=== PATIENT | male | born 1955 | race African-American/Black ===

== ENCOUNTER 2016-05-18 18:55 | Emergency (ER) | payer BC, OTHER ==
--- NOTE | 2016-05-18 20:09 | XR ---
EXAMINATION TYPE: XR chest 2V DATE OF EXAM: 05/18/2016 8:05 PM COMPARISON: NONE HISTORY: Chest pain TECHNIQUE: Frontal and lateral views of the chest are obtained. FINDINGS: Heart and mediastinum are normal. Lungs are clear. Costophrenic angles are clear. There ar e no hilar masses. Bony thorax appears intact. IMPRESSION: No active cardiopulmonary disease.
[2016-05-18] MEDS ORDERED: ONDANSETRON 4 MG/2 ML VIAL IVP STA (20:53)
[2016-05-18] MEDS ORDERED: SODIUM CHLORIDE 0.9% 1,000 ML IV ONE (20:53)
[2016-05-18] MEDS ORDERED: KETOROLAC 30 MG/ML 1 ML VIAL IVP STA (20:53)
--- NOTE | 2016-05-18 20:54 | ED ---
General Adult HPI - General Chief complaint: Upper Respiratory Infection Stated complaint: congestion, diff breathing Time Seen by Provider: 05/18/16 19:42 Source: patient Mode of arrival: ambulatory Limitations: no limitations - History of Present Illness Initial comments: 60-year-old -[place] male presented for evaluation of 4 days of fevers, chills, sinus congestion, cough. He states that he has sick contacts intermittently. Symptom onset was gradual but acutely worsened over the last 48 hours. He has not tried any medications for improvement of his symptoms. He further states that there was associated nausea and vomiting and he is therefore been unable to keep any other medications down. He states coughing brings on chest discomfort but there is none at baseline. Cough is productive of discolored sputum. - Related Data Home Medications Medication Instructions Recorded Confirmed Albuterol Sulfate [Proair Hfa] 2 puff INHALATION RT-Q6H PRN 05/18/16 05/18/16 Clindamycin [Cleocin] 150 mg PO Q8H 05/18/16 05/18/16 Ibuprofen [Motrin] 800 mg PO TID PRN 05/18/16 05/18/16 amLODIPine [Norvasc] 2.5 mg PO DAILY 05/18/16 05/18/16 Previous Rx's Medication Instructions Recorded Ondansetron Odt [Zofran Odt] 4 mg PO Q8HR PRN #7 tab 05/18/16 Allergies Allergy/AdvReac Type Severity Reaction Status Date / Time Penicillins Allergy Rash/Hives Verified 05/18/16 19:36 Review of Systems ROS Statement: Those systems with pertinent positive or pertinent negative responses have been documented in the HPI. ROS Other: All systems not noted in ROS Statement are negative. Constitutional: Reports: fever, chills. Denies: weakness, weight change, night sweats Eyes: Denies: eye pain, eye discharge ENT: Reports: throat pain. Denies: ear pain, hearing loss, epistaxis Respiratory: Reports: cough, dyspnea, wheezes. Denies: hemoptysis, stridor Cardiovascular: Reports: chest pain (With coughing), dyspnea on exertion. Denies: palpitations, orthopnea Endocrine: Reports: fatigue. Denies: polydipsia, polyuria Gastrointestinal: Reports: nausea, vomiting, diarrhea. Denies: abdominal pain, constipation Genitourinary: Denies: urgency, dysuria Musculoskeletal: Reports: myalgia. Denies: back pain Skin: Denies: rash, lesions Neurological: Reports: headache. Denies: weakness Psychiatric: Denies: anxiety, depression Past Medical History Past Medical History: Hypertension History of Any Multi-Drug Resistant Organisms: None Reported Past Surgical History: Orthopedic Surgery Past Psychological History: No Psychological Hx Reported Smoking Status: Current every day smoker Past Alcohol Use History: None Reported Past Drug Use History: Marijuana General Exam Limitations: no limitations General appearance: alert, in no apparent distress Head exam: Present: atraumatic, normocephalic, normal inspection Eye exam: Present: normal appearance, PERRL, EOMI. Absent: scleral icterus, conjunctival injection, periorbital swelling ENT exam: Present: normal exam, mucous membranes moist Neck exam: Present: normal inspection. Absent: tenderness, meningismus, lymphadenopathy Respiratory exam: Present: normal lung sounds bilaterally. Absent: respiratory distress, wheezes, rales, rhonchi, stridor Cardiovascular Exam: Present: regular rate, normal rhythm, normal heart sounds. Absent: systolic murmur, diastolic murmur, rubs, gallop, clicks GI/Abdominal exam: Present: soft, normal bowel sounds. Absent: distended, tenderness, guarding, rebound, rigid Rectal exam: Present: deferred Extremities exam: Present: normal inspection, full ROM, normal capillary refill. Absent: tenderness, pedal edema, joint swelling, calf tenderness Back exam: Present: normal inspection Neurological exam: Present: alert, oriented X3, CN II-XII intact Psychiatric exam: Present: normal affect, normal mood Skin exam: Present: warm, dry, intact, normal color. Absent: rash Course Vital Signs 05/18/16 19:25 Temperature 99 F Pulse Rate 94 Respiratory 20 Rate Blood Pressure 165/93 O2 Sat by Pulse 92 L Oximetry EKG Findings - EKG Comments: EKG Findings:: Normal sinus rhythm with a ventricular rate of 86, JARED 118, QRS 82, QT/QTC 372/445. Medical Decision Making - Medical Decision Making 60-year-old -[place] male presenting for evaluation of sore throat, productive cough, shortness of breath, and headache for the last few days. He has sick contacts and there is concern for URI versus pneumonia. On physical examination he has clear lung sounds bilaterally but appears generally fatigued. Labs are significant for a positive influenza. There was an elevation in his alk phos but there were no other LFTs elevated and he had no abdominal tenderness on this visit therefore will not be further worked up. He was informed of this is ultimately he should follow-up on it with his primary care physician. Otherwise there are no other significant laboratory abnormalities. Chest x-ray revealed no acute abnormalities. The patient was reevaluated and had marked improvement in his symptoms. He is informed of these results and through shared decision making it was determined that he would be discharged with instructions to follow-up with his primary care physician but to return to this facility if symptoms should worsen or persist. He acknowledged an understanding of this information and agreed with this plan of care. - Lab Data Result diagrams: 05/18/16 21:15 05/18/16 21:15 Lab Results 05/18/16 05/18/16 05/18/16 Range/Units 19:50 19:50 21:15 WBC 6.3 (3.8-10.6) k/uL RBC 4.73 (4.30-5.90) m/uL Hgb 13.6 (13.0-17.5) gm/dL Hct 41.3 (39.0-53.0) % MCV 87.3 (80.0-100.0) fL MCH 28.8 (25.0-35.0) pg MCHC 33.0 (31.0-37.0) g/dL RDW 15.2 (11.5-15.5) % Plt Count 374 (150-450) k/uL Neutrophils % 73 % Lymphocytes % 12 % Monocytes % 10 % Eosinophils % 2 % Basophils % 1 % Neutrophils # 4.6 (1.3-7.7) k/uL Lymphocytes # 0.7 L (1.0-4.8) k/uL Monocytes # 0.6 (0-1.0) k/uL Eosinophils # 0.1 (0-0.7) k/uL Basophils # 0.1 (0-0.2) k/uL Sodium (137-145) mmol/L Potassium (3.5-5.1) mmol/L Chloride (98-107) mmol/L Carbon Dioxide (22-30) mmol/L Anion Gap mmol/L BUN (9-20) mg/dL Creatinine (0.66-1.25) mg/dL Est GFR (MDRD) Af Amer (>60 ml/min/1.73 sqM) Est GFR (MDRD) Non-Af (>60 ml/min/1.73 sqM) Glucose (74-99) mg/dL Calcium (8.4-10.2) mg/dL Total Bilirubin (0.2-1.3) mg/dL AST (17-59) U/L ALT (21-72) U/L Alkaline Phosphatase (38-126) U/L Troponin I (0.000-0.034) ng/mL Total Protein (6.3-8.2) g/dL Albumin (3.5-5.0) g/dL Lipase (23-300) U/L Influenza Type A RNA Detected H (Not Detectd) Influenza Type B (PCR) Not Detected (Not Detectd) Group A Strep Rapid Negative (Negative) 05/18/16 05/18/16 Range/Units 21:15 21:15 WBC (3.8-10.6) k/uL RBC (4.30-5.90) m/uL Hgb (13.0-17.5) gm/dL Hct (39.0-53.0) % MCV (80.0-100.0) fL MCH (25.0-35.0) pg MCHC (31.0-37.0) g/dL RDW (11.5-15.5) % Plt Count (150-450) k/uL Neutrophils % % Lymphocytes % % Monocytes % % Eosinophils % % Basophils % % Neutrophils # (1.3-7.7) k/uL Lymphocytes # (1.0-4.8) k/uL Monocytes # (0-1.0) k/uL Eosinophils # (0-0.7) k/uL Basophils # (0-0.2) k/uL Sodium 138 (137-145) mmol/L Potassium 4.7 (3.5-5.1) mmol/L Chloride 102 (98-107) mmol/L Carbon Dioxide 27 (22-30) mmol/L Anion Gap 9 mmol/L BUN 22 H (9-20) mg/dL Creatinine 0.90 (0.66-1.25) mg/dL Est GFR (MDRD) Af Amer >60 (>60 ml/min/1.73 sqM) Est GFR (MDRD) Non-Af >60 (>60 ml/min/1.73 sqM) Glucose 100 H (74-99) mg/dL Calcium 9.1 (8.4-10.2) mg/dL Total Bilirubin 0.6 (0.2-1.3) mg/dL AST 53 (17-59) U/L ALT 55 (21-72) U/L Alkaline Phosphatase 200 H (38-126) U/L Troponin I <0.012 (0.000-0.034) ng/mL Total Protein 7.0 (6.3-8.2) g/dL Albumin 3.6 (3.5-5.0) g/dL Lipase 75 (23-300) U/L Influenza Type A RNA (Not Detectd) Influenza Type B (PCR) (Not Detectd) Group A Strep Rapid (Negative) Disposition Clinical Impression: Influenza A Disposition: HOME SELF-CARE Condition: Stable Instructions: Upper Respiratory Infection (ED) Additional Instructions: Please use medication as discussed. Please follow up with family doctor if symptoms have not improved over the next two days. Please return to the emergency room if your symptoms increase or worsen or for any other concerns. Prescriptions: Ondansetron Odt [Zofran Odt] 4 mg PO Q8HR PRN #7 tab PRN Reason: Nausea Referrals: Pearl Sosa MD [Primary Care Provider] - 1-2 days Time of Disposition: 22:27
[2016-05-18 21:31] LABS: Basophils # (A) 0.1 k/uL (0-0.2); Basophils % (A) 1 %; CH 28.8; CHCM 33.2; Eosinophils # (A) 0.1 k/uL (0-0.7); Eosinophils % (A) 2 %; HCT 41.3 % (39.0-53.0); HDW 2.83; HGB 13.6 gm/dL (13.0-17.5); Luc # (Auto) 0.16; Luc % (Auto) 3; Lymphocytes # (A) 0.7 k/uL (1.0-4.8); Lymphocytes % (A) 12 %; MCH 28.8 pg (25.0-35.0); MCV 87.3 fL (80.0-100.0); Mean Platelet Volume 7.1; Monocytes # (A) 0.6 k/uL (0-1.0); Monocytes % (A) 10 %; Neutrophils # (A) 4.6 k/uL (1.3-7.7); Neutrophils % (A) 73 %; RBC 4.73 m/uL (4.30-5.90); RDW 15.2 % (11.5-15.5); WBC 6.3 k/uL (3.8-10.6); WBC (Perox) 6.74
[2016-05-18 21:44] LABS: ALT 55 U/L (21-72); AST 53 U/L (17-59); Alkaline Phosphatase 200 U/L (38-126); Anion Gap 9 mmol/L; Blood Urea Nitrogen 22 mg/dL (9-20); Calcium 9.1 mg/dL (8.4-10.2); Carbon Dioxide 27 mmol/L (22-30); Chloride 102 mmol/L (98-107); Glucose 100 mg/dL (74-99); Non-African American GFR(MDRD) >60 (>60 ml/min/1.73 sqM); Potassium 4.7 mmol/L (3.5-5.1); Sodium 138 mmol/L (137-145); Total Bilirubin 0.6 mg/dL (0.2-1.3)
[2016-05-18 23:03] VITALS: BP 146/91; PULSE 85; RESP 16; TEMP 97.9
== END 2016-05-18 23:03 | disposition home or self-care (01) ==
LOC: EC 18:55
DX: J10.1 Influenza due to other identified influenza virus with other respiratory manifestations (principal); R74.8 Abnormal levels of other serum enzymes; R11.2 Nausea with vomiting, unspecified; I10 Essential (primary) hypertension; F17.200 Nicotine dependence, unspecified, uncomplicated; Z79.899 Other long term (current) drug therapy; Z88.0 Allergy status to penicillin
CPT/HCPCS: 99284 ×2; 96374 ×2; 96375 ×2; 96361 ×3; 36415; 93005; 80053; 83690; 84484; 85025; 87081; 87430; 87502; 71020; J2405; J1885

== ENCOUNTER → 2016-06-17 | Outpatient (CLI) | payer BC, OTHER ==
--- NOTE | 2016-06-18 07:55 | CT ---
EXAMINATION TYPE: CT facial bones wo con DATE OF EXAM: 06/17/2016 7:29 PM COMPARISON: NONE HISTORY: Left sided swelling marked by BB CT DLP: 641.[address] of the facial bones was performed in the axial and coronal planes. Bone and soft tissu e window settings are submitted. Markers placed over the site of clinical concern left jaw region. There appears to be mild edema of the posterior left masseter muscle however given the lack of contra st examination is considered limited. I do recommend CT of the neck with contrast further evaluation. In addition there appears to be internal jugular chain adenopathy bilaterally. I do not see evidence for displaced facial bone fracture or depressed facial bone fracture. The globes are intact. Paranasal sinuses are well-aerated. IMPRESSION: 1. There appears to be mild edema of the posterior left masseter muscle however given the lack of co ntrast examination is considered limited. I do recommend CT of the neck with contrast further evaluat ion. In addition there appears to be internal jugular chain adenopathy bilaterally.
== END | disposition home or self-care (01) ==
LOC: RADCTMAIN 18:59
PROVIDERS: ATTEND Internal Medicine
DX: R22.0 Localized swelling, mass and lump, head (principal); M27.8 Other specified diseases of jaws
CPT/HCPCS: 70486

== ENCOUNTER → 2016-06-26 | Outpatient (CLI) | payer BC, OTHER ==
--- NOTE | 2016-06-26 15:39 | CT ---
EXAMINATION TYPE: CT soft tissue neck w con DATE OF EXAM: 06/26/2016 2:51 PM COMPARISON: CT facial bones 17 June 2016 HISTORY: left side mass CT DLP: 513 mGycm Automated exposure control for dose reduction was used. CONTRAST: CT scan of the neck is performed following with IV Contrast, patient injected with 100 mL of Omnipaqu e 300. Axial images are obtained, coronal and sagittal reformatted images are reviewed. FINDINGS: Airway: No gross abnormality seen. Parotid/submandibular glands: No gross abnormality seen. Carotid/Vascular Structures: Patent, no significant stenosis of the proximal internal carotid arterie s. Internal jugular veins are patent. Vertebral arteries are patent, left vertebral artery is dominan t. Other: Some heterogeneous density is present within the posterior pharyngeal soft tissues which appea rs somewhat prominently. Focal area of low attenuation is present measuring approximately 7 mm, there could be a Thornwaldt cyst present. Bilateral adenopathy present deep to the sternocleidomastoid muscles and parotid glands, left-sided n ode measures approximately 17 mm in short axis, right-sided no is 11 mm in short axis. Calcifications along the palatine tonsil left likely due to chronic infection. Emphysematous changes are present at the lung apices. Sclerotic density is present involving the proximalmost right second rib, there is an apparent fractu re present without significant displacement, sclerotic density also present within the T3 vertebral b liliya and spinous process T2. IMPRESSION: Findings suggest bony metastatic disease as well as cervical adenopathy. Consider bone s can, oncology consult, additional findings above. Possibility of fat within the neck may limit sensit ivity. A Yellow message has been communicated to Pearl Sosa MD via the [employer] system on 06/26/2016 3:35 PM, Message ID [id number].
== END | disposition home or self-care (01) ==
LOC: RADCTMAIN 13:54
PROVIDERS: ATTEND Internal Medicine
DX: R22.1 Localized swelling, mass and lump, neck (principal)
CPT/HCPCS: 70491; Q9967

== ENCOUNTER 2016-07-06 16:36 | Inpatient (IN) | payer BC, OTHER ==
[2016-07-06] MEDS ORDERED: SODIUM CHLORIDE 0.9% 1,000 ML IV STA (16:55)
[2016-07-06] MEDS ORDERED: IPRATROPIUM-ALBUTEROL 3 ML NEB INHALATION STA (16:55)
--- NOTE | 2016-07-06 17:01 | ED ---
Chest Pain HPI - General Chief Complaint: Chest Pain Stated Complaint: Chest Pain Time Seen by Provider: 07/06/16 16:42 Source: patient, family, RN notes reviewed, old records reviewed Mode of arrival: ambulatory Limitations: no limitations - History of Present Illness Initial Comments: This is a 60-year-old male with a history of about one week of left-sided sharp chest pain. He was intermittent gets worse with the breathing he's also had night sweats. He has occasional cough but no phlegm production. States the pain is mild to moderate in severity. Additionally he states he recently had a CAT scan because he has 2 lumps on his face below his ears he is to see Dr. nani quinteros in the near future. He denies any history of heart or lung disease but again he is a smoker. He also states she's had decreased appetite. He does also complain some upper abdominal pain he had no diarrhea but he did have an episode nausea vomiting earlier today. MD Complaint: chest pain, other - Related Data Home Medications Medication Instructions Recorded Confirmed Albuterol Sulfate [Proair Hfa] 2 puff INHALATION RT-Q6H PRN 05/18/16 07/06/16 Ibuprofen [Motrin] 800 mg PO TID PRN 05/18/16 07/06/16 amLODIPine [Norvasc] 2.5 mg PO DAILY 05/18/16 07/06/16 HYDROcodone/APAP 5-325MG [Kin[place] 1 tab PO TID PRN 07/06/16 07/06/16 5-325] Allergies Allergy/AdvReac Type Severity Reaction Status Date / Time Penicillins Allergy Rash/Hives Verified 07/06/16 17:27 Review of Systems ROS Statement: Those systems with pertinent positive or pertinent negative responses have been documented in the HPI. ROS Other: All systems not noted in ROS Statement are negative. EKG Findings - EKG Results: EKG: interpreted by JONATHON, sinus rhythm (Sinus rhythm with a rate of 90 NJ interval of 128 QRS duration 82 daily since QTC of 372/455 possible left atrial enlargement nonspecific ST-T wave configuration. This is compared to an EKG dated 05/18/16 shows no acute changes.) Past Medical History Past Medical History: Hypertension History of Any Multi-Drug Resistant Organisms: None Reported Past Surgical History: Orthopedic Surgery Past Psychological History: No Psychological Hx Reported Smoking Status: Current every day smoker Past Alcohol Use History: None Reported Past Drug Use History: Marijuana General Exam - General Exam Comments Initial Comments: This is a well-developed asthenic appearing male he does appear to be dyspneic he does not have audible wheezing. Limitations: no limitations General appearance: alert, anxious, in distress Head exam: Present: atraumatic, normocephalic, normal inspection Eye exam: Present: normal appearance, PERRL, EOMI. Absent: scleral icterus, conjunctival injection, periorbital swelling ENT exam: Present: mucous membranes dry, other (Some evidence of preauricular lymphadenopathy) Neck exam: Present: normal inspection. Absent: tenderness, meningismus, lymphadenopathy Respiratory exam: Present: wheezes, chest wall tenderness, decreased breath sounds. Absent: respiratory distress, rales, rhonchi, stridor Cardiovascular Exam: Present: regular rate, normal rhythm, normal heart sounds. Absent: systolic murmur, diastolic murmur, rubs, gallop, clicks GI/Abdominal exam: Present: soft, tenderness (Some mild right upper quadrant tenderness palpation no guarding or rebound), normal bowel sounds. Absent: distended, guarding, rebound, rigid Extremities exam: Present: normal inspection, full ROM, normal capillary refill. Absent: tenderness, pedal edema, joint swelling, calf tenderness Back exam: Present: normal inspection Neurological exam: Present: alert, oriented X3, CN II-XII intact Psychiatric exam: Present: normal affect, normal mood Skin exam: Present: warm, dry, intact, normal color. Absent: rash Course Vital Signs 07/06/16 07/06/16 07/06/16 16:38 16:57 17:11 Temperature 98.0 F Pulse Rate 96 88 88 Respiratory 20 16 Rate Blood Pressure 179/112 213/110 O2 Sat by Pulse 96 100 Oximetry 07/06/16 07/06/16 07/06/16 17:19 17:52 18:26 Temperature Pulse Rate 92 95 98 Respiratory 16 Rate Blood Pressure 191/109 186/104 O2 Sat by Pulse 98 Oximetry 07/06/16 18:56 Temperature Pulse Rate 108 H Respiratory Rate Blood Pressure 206/103 O2 Sat by Pulse Oximetry - Reevaluation(s) Reevaluation #1: 07/06/16 19:22 The patient was getting some relief with his breathing initial medication for chest pain did help the repeat did Chest Pain MDM - MDM I did review the imaging and report. There is evidence of osteoblastic changes Lisfranc consistent with metastatic disease evidence of right upper lobe spiculated 2 cm mass. No evidence of PE. The patient will be admitted for continued inpatient treatment of the suspected COPD pulmonary consultation as well as Dr. Simpson will be consulted. Disposition Clinical Impression: Atypical chest pain, Lung mass, COPD with exacerbation Disposition: ADMITTED IP TO THIS HOSP Condition: Stable
[2016-07-06 17:09] LABS: Basophils # (A) 0.1 k/uL (0-0.2); Basophils % (A) 1 %; CH 28.4; CHCM 32.7; Eosinophils # (A) 1.4 k/uL (0-0.7); Eosinophils % (A) 7 %; HCT 40.5 % (39.0-53.0); HDW 3.01; Luc % (Auto) 1; Lymphocytes # (A) 1.7 k/uL (1.0-4.8); Lymphocytes % (A) 9 %; MCH 28.2 pg (25.0-35.0); MCHC 32.2 g/dL (31.0-37.0); MCV 87.5 fL (80.0-100.0); Mean Platelet Volume 6.3; Monocytes # (A) 1.1 k/uL (0-1.0); Monocytes % (A) 6 %; Neutrophils % (A) 76 %; RBC 4.63 m/uL (4.30-5.90); RDW 15.2 % (11.5-15.5); WBC 18.4 k/uL (3.8-10.6); WBC (Perox) 16.87
[2016-07-06 17:20] LABS: ALT 75 U/L (21-72); AST 49 U/L (17-59); Alkaline Phosphatase 312 U/L (38-126); Anion Gap 8 mmol/L; Blood Urea Nitrogen 16 mg/dL (9-20); Calcium 9.6 mg/dL (8.4-10.2); Carbon Dioxide 31 mmol/L (22-30); Chloride 102 mmol/L (98-107); Glucose 74 mg/dL (74-99); Magnesium 1.9 mg/dL (1.6-2.3); Non-African American GFR(MDRD) >60 (>60 ml/min/1.73 sqM); Potassium 4.3 mmol/L (3.5-5.1); Sodium 141 mmol/L (137-145); Total Bilirubin 0.6 mg/dL (0.2-1.3); Total Protein 7.7 g/dL (6.3-8.2)
[2016-07-06] MEDS ORDERED: ONDANSETRON 4 MG/2 ML VIAL IVP STA (17:22)
[2016-07-06 17:26] LABS: INR 1.1 (<1.1); Partial Thromboplastin Time 25.3 sec (22.0-30.0); Prothrombin Time 10.9 sec (9.0-12.0)
--- NOTE | 2016-07-06 17:27 | XR ---
EXAMINATION TYPE: XR chest 2V DATE OF EXAM: 07/06/2016 5:10 PM COMPARISON: 05/18/2016 HISTORY: Chest pain TECHNIQUE: Frontal and lateral views of the chest are obtained. FINDINGS: Heart and mediastinum are normal. Lungs are clear of consolidation. Diaphragm is normal. T here are chest leads. There is a small irregular 1 cm density over the right upper lobe. IMPRESSION: Possible right upper lobe nodule. No change compared to last exam..
[2016-07-06 17:33] LABS: Creatine Kinase 33 U/L (55-170)
[2016-07-06] MEDS ORDERED: HYDROmorphone 1 MG/ML 1 ML SYRINGE IVP STA (17:43)
[2016-07-06 17:47] LABS: Creatine Kinase MB 0.7 ng/mL (0.0-2.4); Troponin I <0.012 ng/mL (0.000-0.034)
[2016-07-06] MEDS ORDERED: RX INFO: IV CONTRAST WAS GIVEN 1 EACH MISC MISCELLANE PRN (17:49)
--- NOTE | 2016-07-06 18:43 | CT ---
EXAMINATION TYPE: CT angio chest DATE OF EXAM: 07/06/2016 6:31 PM COMPARISON: NONE HISTORY: Chest pain and SOB. CT DLP: 410 mGycm Automated exposure control for dose reduction was used. CONTRAST: CTA scan of the thorax is performed with IV Contrast, patient injected with 90 mL of Omnipaque 350, p ulmonary embolism protocol. There are 3-D post processed images.. FINDINGS: There is no sign of aortic aneurysm or dissection. Heart size is normal. There is no pericardial effu sonny. There are enlarged mediastinal and right bronchial lymph nodes that measure up to 2.5 cm. I see no filling defects in the pulmonary arteries. There is a 2 cm spiculated infiltrate in the anterior segment right upper lobe. There is no pleural effusion. There are numerous variable sized ring-enhancing type masses in the liver. These measure up to 7 cm. There are patchy areas of osteoblastic change in multiple thoracic and lumbar vertebra. IMPRESSION: NO EVIDENCE OF PULMONARY EMBOLISM. MEDIASTINAL AND RIGHT BRONCHIAL ADENOPATHY. RIGHT UPPER LOBE SPICULATED 2 CM MASS IS SUSPICIOUS FOR T UMOR. NUMEROUS HEPATIC LESIONS CONSISTENT WITH METASTATIC DISEASE. OSTEOBLASTIC CHANGES IN THE SPINE CONSISTENT WITH METASTATIC DISEASE.
[2016-07-06] MEDS ORDERED: IBUPROFEN 800 MG TAB PO PRN (19:30)
[2016-07-06] MEDS ORDERED: SODIUM CHLORIDE 0.9% 1,000 ML IV SCH (19:30)
[2016-07-06] MEDS ORDERED: IPRATROPIUM-ALBUTEROL 3 ML NEB INHALATION SCH (20:00)
[2016-07-06] MEDS ORDERED: amLODIPine 2.5 MG TAB PO STA (21:20)
[2016-07-06] MEDS ORDERED: ONDANSETRON 4 MG/2 ML VIAL IVP PRN (21:21)
[2016-07-06] MEDS ORDERED: DOCUSATE 100 MG CAP PO PRN (21:22)
[2016-07-06] MEDS: HYDROmorphone 1 MG/ML 1 ML SYRINGE IVP PRN (21:30)
[2016-07-06] MEDS ORDERED: IPRATROPIUM-ALBUTEROL 3 ML NEB INHALATION PRN (21:54)
[2016-07-06] MEDS: METOCLOPRAMIDE 5 MG/ML 2 ML VIAL IVP PRN (22:49)
[2016-07-06] MEDS ORDERED: ALPRAZolam 0.25 MG TAB PO PRN (23:34)
[2016-07-06] MEDS ORDERED: cloNIDine HCL 0.1 MG TAB PO PRN (23:34)
[2016-07-06] MEDS ORDERED: TEMAZEPAM 15 MG CAP PO PRN (23:34)
[2016-07-06 23:55] VITALS: BMI 17.4
[2016-07-07] MEDS ORDERED: METOCLOPRAMIDE 5 MG/ML 2 ML VIAL IVP SCH
[2016-07-07] MEDS ORDERED: methylPREDNISolone SOD SUCCI 125 MG/2 ML VIAL IV SCH
[2016-07-07] MEDS: hydrALAZINE HCL 20 MG/ML 1 ML VIAL IVP PRN ×2 (00:15→22:27)
[2016-07-07] MEDS: METOPROLOL TARTRATE 25 MG TAB PO SCH ×3 (00:19→20:26)
[2016-07-07] MEDS: amLODIPine 5 MG TAB PO SCH ×3 (00:19→20:26)
[2016-07-07] MEDS: NICOTINE 14MG/24HR PATCH TRANSDERM SCH ×2 (00:20→10:37)
[2016-07-07] MEDS: DEXTROSE 5% IN WATER 1,000 ML with POTASSIUM CHLORIDE 20 MEQ IV SCH ×2 (00:54→22:26)
[2016-07-07] MEDS: PANTOPRAZOLE 40 MG/10 ML VIAL IVP SCH ×3 (01:36→21:34)
[2016-07-07] MEDS: ONDANSETRON 4 MG/2 ML VIAL IVP PRN ×2 (01:36→22:26)
[2016-07-07] MEDS: METOCLOPRAMIDE 5 MG/ML 2 ML VIAL IVP PRN (04:10)
[2016-07-07] MEDS: HYDROmorphone 1 MG/ML 1 ML SYRINGE IVP PRN ×3 (04:10→19:54)
[2016-07-07 07:01] LABS: Glucose,Whole Blood 83 mg/dL (75-99)
[2016-07-07] MEDS: INSULIN LISPRO (humaLOG) 300 UNIT/3 ML VIAL SQ SCH ×4 (07:31→20:31)
[2016-07-07] MEDS: methylPREDNISolone SOD SUCCI 125 MG/2 ML VIAL IV SCH ×2 (07:33→20:27)
[2016-07-07] MEDS: HEPARIN SODIUM,PORCINE 5,000 UNIT/ML 1 ML VIAL SQ SCH ×2 (07:33→20:26)
[2016-07-07] MEDS: IPRATROPIUM-ALBUTEROL 3 ML NEB INHALATION SCH ×4 (08:19→20:18)
[2016-07-07 08:47] LABS: Basophils # (A) 0.1 k/uL (0-0.2); Basophils % (A) 1 %; CH 28.1; CHCM 31.1; Eosinophils # (A) 0.7 k/uL (0-0.7); Eosinophils % (A) 4 %; HCT 40.2 % (39.0-53.0); HGB 12.5 gm/dL (13.0-17.5); Hypochromasia Slight; Luc # (Auto) 0.17; Luc % (Auto) 1; Lymphocytes # (A) 1.5 k/uL (1.0-4.8); Lymphocytes % (A) 9 %; MCH 28.3 pg (25.0-35.0); MCHC 31.1 g/dL (31.0-37.0); Mean Platelet Volume 6.9; Monocytes # (A) 1.2 k/uL (0-1.0); Monocytes % (A) 7 %; Neutrophils # (A) 13.1 k/uL (1.3-7.7); Neutrophils % (A) 78 %; RBC 4.42 m/uL (4.30-5.90); RDW 15.4 % (11.5-15.5); WBC 16.8 k/uL (3.8-10.6); WBC (Perox) 18.28
[2016-07-07 08:58] LABS: ALT 71 U/L (21-72); AST 43 U/L (17-59); Alkaline Phosphatase 300 U/L (38-126); Anion Gap 12 mmol/L; Blood Urea Nitrogen 15 mg/dL (9-20); Calcium 9.7 mg/dL (8.4-10.2); Carbon Dioxide 27 mmol/L (22-30); Chloride 101 mmol/L (98-107); Glucose 80 mg/dL (74-99); Non-African American GFR(MDRD) >60 (>60 ml/min/1.73 sqM); Potassium 5.2 mmol/L (3.5-5.1); Sodium 140 mmol/L (137-145); Total Bilirubin 0.8 mg/dL (0.2-1.3); Total Protein 7.7 g/dL (6.3-8.2)
[2016-07-07] MEDS ORDERED: amLODIPine 2.5 MG TAB PO SCH (09:00)
[2016-07-07] MEDS ORDERED: IOHEXOL 350 MG/ML 25 ML BOTTLE (ORAL USE) PO PRN (09:31)
[2016-07-07] MEDS ORDERED: RX INFO: IV CONTRAST WAS GIVEN 1 EACH MISC MISCELLANE PRN ×2 (09:31→10:15)
[2016-07-07 11:40] LABS: Glucose,Whole Blood 99 mg/dL (75-99)
[2016-07-07 13:37] LABS: Hemoglobin A1C 5.2 % (4.2-6.1)
--- NOTE | 2016-07-07 14:32 | NM ---
EXAMINATION TYPE: NM bone scan whole body DATE OF EXAM: 07/07/2016 1:54 PM COMPARISON: Correlation CT 07/07/2016 HISTORY: 60-year-old male bone metastases, area of concern in the thoracic and lumbar region. Technique: Delayed whole-body scanning was performed following the injection of 26.7 mCi Tc 99m MDP. Anterior and posterior whole body images acquired 3.5 hours post injection. FINDINGS: There is diffuse abnormal radiotracer accumulation throughout the axial and appendicular skeleton inv olving a greatest degree the thoracic and lumbar spine, sacrum, pelvis, numerous bilateral ribs, ster num, shoulders, proximal left humeral shaft, left femoral neck, intertrochanteric region right femur. Foci along the face may relate to periodontal disease or additional metastatic disease. A vague focu s in the mid right tibial shaft could also represent subtle osseous metastatic disease. 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 Foci in the region of t he face may relate to periodontal disease or additional metastatic disease.
--- NOTE | 2016-07-07 14:38 | US ---
Ultrasound-guided core biopsy left neck mass CLINICAL HISTORY: Left neck lymphadenopathy FINDINGS: The procedure was explained to the patient. The risks, complications, benefits and alternatives were discussed and any questions were answered. Informed consent was obtained. Patient was placed and a lateral position on the ultrasound table and prepped and draped in the usual sterile fashion. Utili zing a 18 gauge needle, 4 passes were made into the left neck mass. Patient was stable throughout the procedure. Pathology is pending. All elements of maximal barrier and sterile technique were utilized. IMPRESSION: 1. Successful ultrasound guided core biopsy left neck soft tissue mass.
--- NOTE | 2016-07-07 15:23 | HP ---
DATE OF ADMISSION: CHIEF COMPLAINT: Chest pain. HISTORY OF PRESENT ILLNESS: This 60-year-old gentleman with a past medical history of multiple medical problems, hypertension, history of nicotine dependence, history of THC being followed by Dr. Sosa the outpatient setting is complaining of left-sided chest sharp pains for the last one week. The pain is intermittently worse on breathing. The patient also had some night sweats also. The patient also has some cough. The patient also had some pain in the right side of the chest also. The patient also had two bumps below the left ear and was evaluated in the outpatient setting. A CAT scan has been done. The patient had evaluation with Dr. Simpson but has not made the appointment yet. Otherwise currently because of chest pain, the patient presented to [facility] and chest x-ray was done and subsequently a CT scan of the chest was also done that showed mediastinal and right bronchial adenopathy and right upper lobe spiculated 2 cm mass suspicious tumor and numerous hepatic lesions. Concern for metastatic disease also. spine consistent with metastatic disease also noted. Is. There is no history of fever, rigors. No history of headache, loss of consciousness or seizures. The blood pressure was found significantly elevated on admission. The patient also had some vomiting also. PAST MEDICAL HISTORY: History of hypertension, history of smoking, history of marijuana. HOME MEDICATIONS: 1. Norvasc 2.5 mg daily. 2. Motrin 800 mg t.i.d. p.r.n. 3. [place] t.i.d. p.r.n. 4. ProAir 2 puffs q.6. ALLERGIES: PENICILLIN. FAMILY HISTORY: No history of heart disease or strokes in the family. SOCIAL HISTORY: History of smoking, no history of alcohol intake, history of THC. REVIEW OF SYSTEMS: ENT: No diminished hearing or diminished vision. CARDIOVASCULAR: No angina or palpitations. RESPIRATORY: No cough or hemoptysis. GI: No nausea. : No dysuria. NERVOUS SYSTEM: No numbness or weakness. ALLERGY/IMMUNOLOGY: No asthma or hayfever. MUSCULOSKELETAL: As mentioned earlier. HEMATOLOGY: No history of anemia. ENDOCRINE: No history of diabetes or hypothyroidism. CONSTITUTIONAL: As mentioned earlier. DERMATOLOGY: Negative. RHEUMATOLOGY: Negative. PSYCHIATRY: As mentioned earlier. PHYSICAL EXAMINATION: Patient is alert and oriented x3. Pulse 88, blood pressure 190/110 and 212/114, respirations 16, temperature 97.8, pulse ox 98% on 2-L. HEENT: Conjunctivae normal. Oral mucosa moist. Facial flattening on the left side of the face. Significant hard swelling present below the left ear and as well as left posterior cervical areas. 0 NECK: No jugular venous distention. CARDIOVASCULAR: S1 and S2, muffled. No S3, no S4. RESPIRATORY: Breath sounds diminished at the bases. Bilateral scattered rhonchi and crackles. ABDOMEN: Soft, nontender. No mass palpable. LEGS: No edema, no swelling. NERVOUS SYSTEM: Higher function as mentioned. Moves all four limbs. No focal motor deficits. LYMPHATIC: No lymphadenopathy in the neck, axillae or groin. SKIN: No ulcer, rash or bleeding. BMI is 17.5. LABS: WBC 18.4, platelets are 513, CO2 is 31 and ALT 75, alkaline phosphatase is 312 and creatine kinase is 333. ASSESSMENT: 1. Possible metastatic malignancy with mediastinum and right bronchial adenopathy with possible right lung cancer. 2. Cervical lymphadenopathy and mass below the left ear for further evaluation. 3. Possible hepatic metastases. 4. ( ) changes in the spine consistent metastatic disease. 5. Hypertensive urgency. 6. Increased ALT, alkaline phosphatase, possible secondary to hepatic metastases. 7. Increased d-dimer without any evidence of pulmonary embolism. 8. Increased WBC. 9. Increased platelets. 10. History of nicotine dependence. 11. Hypertension, essential. 12. History of THC. 13. History of degenerative joint disease. RECOMMENDATIONS AND DISCUSSION: In this 60-year-old gentleman who presented medical complex issues, we will monitor the patient closely. Continue the current medications and symptomatic treatment. I recommended p.r.n. medications and also institute antihypertensive treatment. Otherwise recommend Norvasc and as well as beta blockers. Symptomatic treatment will also be provided. See orders for further details. Prognosis is guarded because of multiple complex medical issues. Further recommendations to follow. MTDD
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
--- NOTE | 2016-07-07 16:51 | CT ---
EXAMINATION TYPE: CT brain w con DATE OF EXAM: 07/07/2016 1:45 PM COMPARISON: NONE HISTORY: Headache CT DLP: 999.8 mGycm Automated exposure control for dose reduction was used. CONTRAST: CT scan of the head is performed with IV Contrast, patient injected with 100 mL of Omnipaque 300. FINDINGS: There is no abnormal enhancing mass or midline shift identified. The ventricles and sulci are within normal limits in size. Areas of low-attenuation and periventricular white matter are nonspecific fav or product of chronic small vessel ischemic change. Old infarct right frontal lobe seen best coronal image 20 is noted. The globes are intact and the visualized sinuses are clear. IMPRESSION: Mild nonspecific white matter changes presumed on basis of product of chronic small vessel ischemic c hange with old right-sided frontal lobe infarct noted. No suspicious enhancing intraparenchymal mass identified.
[2016-07-07 16:53] LABS: Glucose,Whole Blood 174 mg/dL (75-99)
--- NOTE | 2016-07-07 17:00 | CT ---
EXAMINATION TYPE: CT abdomen pelvis w con DATE OF EXAM: 07/07/2016 1:45 PM COMPARISON: Same day nuclear medicine whole body bone scan HISTORY: Liver and lung masses, history of carcinoma uncertain origin. CT DLP: 369.2 mGycm, Automated Exposure Control for Dose Reduction was Utilized. CONTRAST: CT scan of the abdomen and pelvis is performed without oral but with IV Contrast, patient injected wi th 100 mL of Omnipaque 300. FINDINGS: Evaluation is suboptimal as patient has virtually no intra-abdominal fat LUNG BASES: Some linear scarring or atelectasis posteriorly in both lung bases is present. LIVER/GB: There are multiple heterogeneous hypodense lesions scattered throughout the liver, difficul t to accurately measure size due to some confluent appearance. PANCREAS: No significant abnormality is seen. SPLEEN: No significant abnormality is seen. ADRENALS: There are bilateral heterogeneous suspicious adrenal masses. Left adrenal mass measures 6.4 x 4.2 cm on axial image 27. Right adrenal mass measures 4.2 x 3.7 cm on axial image [address] margins from adjacent liver. A fatty component along posterior inferior aspect may be present. KIDNEYS: Bladder is poorly distended and thus suboptimally evaluated. BOWEL: Evaluation bowel is suboptimal due to lack of intra-abdominal fat as well as lack of enteric c ontrast. Gas prominent stomach is seen. There is no suspicious small or large bowel dilatation. Gas p rominent rectum on axial image 79 is noted. PROSTATE/SEMINAL VESICLES: Occasional scattered pelvic phleboliths are seen. LYMPH NODES: No greater than 1cm abdominal or pelvic lymph nodes are appreciated. OSSEOUS STRUCTURES: There are multiple sclerotic lesions throughout the pelvis, visualized bilateral femurs, visualized thoracic and lumbar spine and visualized bilateral ribs. There is enhancing oval lesion posterior to L5 vertebra on sagittal image 51 and axial image 51 of un certain etiology, appears extra medullary and likely extradural in location. MRI lumbar spine October 05, 2009 shows no obvious lesion at this level. OTHER: No significant additional abnormality is seen. IMPRESSION: Diffuse hepatic and osseous metastatic disease and bilateral adrenal neoplasm or metastat ic disease.
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
[2016-07-07 20:42] LABS: Glucose,Whole Blood 126 mg/dL (75-99)
[2016-07-08 07:30] LABS: Glucose,Whole Blood 109 mg/dL (75-99)
[2016-07-08] MEDS: INSULIN LISPRO (humaLOG) 300 UNIT/3 ML VIAL SQ SCH ×4 (07:39→22:02)
[2016-07-08] MEDS: PANTOPRAZOLE 40 MG/10 ML VIAL IVP SCH ×2 (07:41→20:39)
[2016-07-08] MEDS: HEPARIN SODIUM,PORCINE 5,000 UNIT/ML 1 ML VIAL SQ SCH ×2 (07:41→20:38)
[2016-07-08] MEDS: methylPREDNISolone SOD SUCCI 125 MG/2 ML VIAL IV SCH ×2 (07:41→20:38)
[2016-07-08] MEDS: NICOTINE 14MG/24HR PATCH TRANSDERM SCH (07:42)
[2016-07-08] MEDS: METOPROLOL TARTRATE 25 MG TAB PO SCH ×2 (07:42→20:39)
[2016-07-08] MEDS: amLODIPine 5 MG TAB PO SCH ×2 (07:42→20:38)
--- NOTE | 2016-07-08 08:28 | PN ---
DATE OF SERVICE: 07/07/2016 This is a 60-year-old gentleman admitted with metastatic malignancy, also had multiple symptomatology include chest pain. The bone scan showed diffuse osteoblastic secondary throughout the skeletal system. The patient also had possible multiple metastases in the liver also. Cervical lymphadenopathy was also noted. Patient underwent ultrasound-guided lymph node aspiration biopsy per Radiology. There is no history of fever, chills or rigors. No history of headaches, loss of consciousness or seizures. PAST MEDICAL HISTORY: Reviewed. REVIEW OF SYSTEMS: CARDIOVASCULAR SYSTEM: No angina or palpitations. RESPIRATORY: As mentioned earlier. GI: No nausea. : No dysuria. NERVOUS SYSTEM: No numbness or weakness. Current medications are: 1. [place] 5 mg t.i.d. p.r.n. 2. DuoNeb q.i.d. and p.r.n. 3. Xanax 0.25 t.i.d. 4. Norvasc 5 mg p.o. b.i.d. 5. Colace 100 mg p.o. daily. 6. Heparin 5000 subQ b.i.d. 7. Apresoline 10 mg q.4 p.r.n. 8. Dilaudid. 9. Humalog. 10. Solu-Medrol 40 IV b.i.d. 11. Habitrol 14 mg. 12. Zofran. 13. Temazepam. FAMILY HISTORY: Noncontributory. PHYSICAL EXAM: The patient is alert and oriented x3. Pulse 90, blood pressure 160/90, respirations 16, temperature is normal, pulse ox is 95% on room air. HEENT: Conjunctivae normal. Oral mucosa moist. Neck is no jugular venous distension. No lymph node enlargement. CARDIOVASCULAR: S1, S2, muffled. RESPIRATORY: Breath sounds diminished at the bases. A few scattered rhonchi, no crackles. Respiratory wheezing also was noted. ABDOMEN: Soft, nontender. No mass palpable. LEGS: No edema, no swelling. NERVOUS SYSTEM: No focal deficits. Labs at this time show WBC 16.8, hemoglobin is 12.5, potassium 5.2. Other labs are noted. Alk phos is 300. ASSESSMENT: 1. Possible metastatic malignancy with metastasis in the mediastinum, right bronchial adenopathy and as well as possible right lung cancer. 2. Diffuse osteoblastic metastatic lesion in the skeletal system with a positive bone scan. 3. Cervical lymphadenopathy and mass below the left ear for further evaluation. 4. Possible hepatic metastasis. 5. Hypertensive urgency, present on admission. 6. Increased ALT, alkaline phosphatase, possibly secondary to hepatic metastasis. 7. Increased D-dimer without any evidence of pulmonary embolism. 8. Increased WBC. 9. Increased platelets. 10. History of nicotine dependence. 11. Hypertension, essential. 12. History of THC. 13. History of degenerative joint disease. RECOMMENDATION: Recommend to continue with the current medication. Continue with the current monitoring and the symptomatic treatment. Otherwise, will monitor the patient closely. Otherwise, I would recommend continue the current medication, continue the symptomatic treatment. Await biopsy report. Dr. Simpson is evaluating the patient, his input appreciated. Otherwise, we have also consulted Dr. Betts and Dr. Edwards's group as well. Prognosis guarded. Further recommendations to follow.
[2016-07-08 09:01] LABS: Basophils % (A) 0 %; CH 28.3; CHCM 32.2; Eosinophils # (A) 0.2 k/uL (0-0.7); Eosinophils % (A) 1 %; HCT 40.7 % (39.0-53.0); HDW 2.99; Luc # (Auto) 0.14; Luc % (Auto) 1; Lymphocytes # (A) 1.1 k/uL (1.0-4.8); Lymphocytes % (A) 5 %; MCH 28.3 pg (25.0-35.0); MCHC 31.9 g/dL (31.0-37.0); MCV 88.6 fL (80.0-100.0); Mean Platelet Volume 6.5; Monocytes # (A) 1.5 k/uL (0-1.0); Monocytes % (A) 8 %; Neutrophils # (A) 17.5 k/uL (1.3-7.7); Neutrophils % (A) 86 %; RDW 15.1 % (11.5-15.5); WBC 20.4 k/uL (3.8-10.6); WBC (Perox) 19.58
[2016-07-08 09:20] LABS: ALT 56 U/L (21-72); AST 31 U/L (17-59); Alkaline Phosphatase 303 U/L (38-126); Anion Gap 16 mmol/L; Blood Urea Nitrogen 21 mg/dL (9-20); Calcium 10.4 mg/dL (8.4-10.2); Carbon Dioxide 25 mmol/L (22-30); Chloride 97 mmol/L (98-107); Glucose 102 mg/dL (74-99); Non-African American GFR(MDRD) >60 (>60 ml/min/1.73 sqM); Potassium 5.2 mmol/L (3.5-5.1); Sodium 138 mmol/L (137-145); Total Bilirubin 0.7 mg/dL (0.2-1.3); Total Protein 8.3 g/dL (6.3-8.2)
[2016-07-08] MEDS: IPRATROPIUM-ALBUTEROL 3 ML NEB INHALATION SCH ×4 (09:23→21:16)
--- NOTE | 2016-07-08 11:03 | P.PN ---
Subjective 60-year-old male patient is being seen in follow-up. The patient is doing well and he has no specific complaints. Underwent a fine-needle aspirate of the left cervical lymph node/lesion yesterday and the final pathologic findings are still pending. He has no specific complaints other than some pain in his back and some occasional nausea. No shortness of breath. No change in mental status. No other significant events overnight.The CAT scan of the abdomen and pelvis was done and showed diffuse hepatic and HIS metastases and bilateral adrenal neoplasm consistent with metastatic disease. The nuclear bone scan showed diffuse O2 bled take metastatic disease involving the spine, ribs, sternum, sacrum, pelvis, shoulders, bilateral humerus and femur as and possibly another focus in the mid right tibial shaft. Objective - Vital Signs Vital signs: Vital Signs Temp 97.7 F 07/08/16 07:51 Pulse 86 07/08/16 09:35 Resp 16 07/08/16 09:23 BP 180/95 07/08/16 07:51 Pulse Ox 94 L 07/08/16 07:51 Intake & Output 07/07/16 07/08/16 07/08/16 18:59 06:59 18:59 Intake Total 350 250 Output Total 350 Balance 350 -100 Weight 55.338 kg Intake: Intake, IV Titration 350 Amount Dextrose 5% in Water 1, 350 000 ml @ 50 mls/hr IV . [id number] SONNY with Potassium Chloride 20 meq Rx#:[id number] Oral 250 Output: Urine 350 Other: Voiding Method Toilet Toilet Toilet Urinal Urinal Urinal # Voids 2 1 - Exam The patient appeared well nourished and normally developed. Vital signs as documented. Head exam is unremarkable. No scleral icterus or corneal arcus noted. Neck is without jugular venous distension, thyromegaly, or carotid bruits. Carotid upstrokes are brisk bilaterally. Lungs are clear to auscultation and percussion. Cardiac exam reveals the PMI to be normally sized and situated. Rhythm is regular. First and second heart sounds normal. No murmurs, rubs or gallops. Abdominal exam reveals normal bowel sounds, no masses , no organomegaly and no aortic enlargement. Extremities are nonedematous and both femoral and pedal pulses are normal. - Labs CBC & Chem 7: 07/08/16 08:17 07/08/16 08:17 Labs: Abnormal Lab Results - Last 24 Hours (Table) 07/07/16 07/07/16 07/08/16 Range/Units 16:49 20:28 07:04 WBC (3.8-10.6) k/uL Plt Count (150-450) k/uL Neutrophils # (1.3-7.7) k/uL Monocytes # (0-1.0) k/uL Potassium (3.5-5.1) mmol/L Chloride (98-107) mmol/L BUN (9-20) mg/dL Glucose (74-99) mg/dL POC Glucose (mg/dL) 174 H 126 H 109 H (75-99) mg/dL Calcium (8.4-10.2) mg/dL Alkaline Phosphatase (38-126) U/L Total Protein (6.3-8.2) g/dL 07/08/16 07/08/16 Range/Units 08:17 08:17 WBC 20.4 H (3.8-10.6) k/uL Plt Count 534 H (150-450) k/uL Neutrophils # 17.5 H (1.3-7.7) k/uL Monocytes # 1.5 H (0-1.0) k/uL Potassium 5.2 H (3.5-5.1) mmol/L Chloride 97 L (98-107) mmol/L BUN 21 H (9-20) mg/dL Glucose 102 H (74-99) mg/dL POC Glucose (mg/dL) (75-99) mg/dL Calcium 10.4 H (8.4-10.2) mg/dL Alkaline Phosphatase 303 H (38-126) U/L Total Protein 8.3 H (6.3-8.2) g/dL Assessment and Plan Plan: Assessment 1 metastatic carcinoma likely of a lung primary. The patient has a right upper lobe mass in addition to mediastinal lymphadenopathy, cervical lymphadenopathy and extensive hepatic metastases and diffuse skeletal metastases. Fine-needle aspirate of the neck mass was done and the results are still pending for now. This is likely cervical lymphadenopathy consistent with malignancy 2 COPD 3 skeletal metastases 4 smoker 5 hypertension 6 osteoarthritis Plan Awaiting final pathology report from the fine-needle aspirate of the cervical mass. Oncology consultation. Prognosis poor. We'll follow.
[2016-07-08 11:22] LABS: Glucose,Whole Blood 178 mg/dL (75-99)
--- NOTE | 2016-07-08 16:05 | CDI ---
In responding to this query, please exercise your independent professional judgment. The [facility] Coding Staff and Clinical Documentation Specialists appreciate your assistance in clarifying documentation, maintaining compliance with coding guidelines, accurately documenting patients condition and capturing severity of illness. The fact that a question is asked does not imply that any particular answer is desired or expected. Communication forms are a method of clarifying documentation and are not made part of the Legal Health Record. Thank you in advance for your clarification. Last Revision, December 2014 [address] [place] [address] Documentation Clarification Form Date: 07/08/2016 3:48:00 PM From: Neeru Chase RN, CDS Admit Date: 07/06/2016 7:30:00 PM Patient Name: Gavin Rice Visit Number: [id number] Dr. Nissa Beach MD History/Risk Factors: 60 year old male with recent diagnosis of Lung cancer, patient reports > 20 lb. weight loss, does not know why he is losing weight. Clinical Indicators: 25 Lb. weight loss over 6 months, BMI 17.4, Underweight per dietitian, Labs: Albumin/ Pre albumin/Total Protein: Albumin: 3.7, Total Protein 7.7 Insufficient energy intake: Weight Loss: 25 pounds over 6 months Treatment: Dietitian consult, Ensure supplement BID, In your professional opinion, can you please clarify if these findings signify one of the following conditions? Severe Protein-Calorie Malnutrition Moderate Protein-Calorie Malnutrition Other condition, please specify Unable to determine Please document in your progress notes and discharge summary in order to capture severity of illness and risk of mortality. Include clinical findings that support your diagnosis. FYI: Press F11 to launch patient chart. Place X here if this finding has no clinical significance, is not applicable or if you are not able to provide any additional documentation. SHRADDHA
[2016-07-08 17:02] LABS: Glucose,Whole Blood 142 mg/dL (75-99)
[2016-07-08] MEDS: DEXTROSE 5% IN WATER 1,000 ML with POTASSIUM CHLORIDE 20 MEQ IV SCH (17:34)
--- NOTE | 2016-07-08 17:38 | PN ---
DATE OF SERVICE: 07/08/2016 This 60-year-old gentleman was admitted with multiple medical problems, including metastatic malignancy. Patient had multiple metastatic lesions in the lymph nodes in the lung and cervical lymphadenopathy as well as throughout the skeletal system. The lymph node biopsy reports are pending at this time. Dr. Betts and Dr. Simpson are following the patient closely. Fine-needle aspiration biopsy is awaited. On examination, alert and oriented x3. Pulse is 90. The blood pressure is 180/95, respiration 16, temperature 97.6, pulse ox 94% on room air. HEENT: Conjunctivae normal. NECK: No jugular venous distention. CARDIOVASCULAR SYSTEM: S1, S2 muffled. RESPIRATORY SYSTEM: Breath sounds diminished at the bases. A few scattered rhonchi. ABDOMEN: Soft, non-tender. LEGS: No edema. No swelling. NERVOUS SYSTEM: No focal deficit. LABS: WBC 20.4, hemoglobin 13, platelets 534. Otherwise, sodium is 138, potassium 5.2. Accu-Cheks 178. ASSESSMENT: 1. Metastatic malignancy with metastases in the mediastinum, right bronchial adenopathy as well as possible right lung cancer. 2. Diffuse osteoblastic metastatic lesions in the skeletal system with a positive bone scan. 3. Cervical lymphadenopathy and mass below the left ear, status post fine-needle aspiration biopsy of the lymph node. 4. Possible hepatic metastasis. 5. Hypertensive urgency, present on admission. 6. Increased ALT, alkaline phosphatase, possibly secondary to hepatic metastasis. 7. Increased D-dimer without any evidence of pulmonary embolism. 8. Increased white count. 9. Increased platelets. 10. History of nicotine dependence. 11. Hypertension, essential. 12. History of tetrahydrocannabinol. 13. History of degenerative joint disease. 14. FULL CODE. RECOMMENDATIONS AND DISCUSSION: In this 60-year-old gentleman who presented with multiple complex medical issues, we will monitor the patient closely, continue the current medication, continue with symptomatic treatment. Repeat labs. Follow closely with Dr. Betts and Dr. Simpson. Prognosis guarded. Further recommendations to follow. Await lymph node fine-needle aspiration biopsy reports.
[2016-07-08] MEDS ORDERED: D5W WITH KCL 20 MEQ/L 1,000 ML IV SCH (21:00)
[2016-07-08 21:09] LABS: Glucose,Whole Blood 149 mg/dL (75-99)
[2016-07-09] MEDS: ONDANSETRON 4 MG/2 ML VIAL IVP PRN ×2 (05:42→17:26)
[2016-07-09] MEDS: HYDROcodone/APAP 5-325MG 1 EACH TAB PO PRN ×2 (05:42→17:28)
[2016-07-09 07:07] LABS: Glucose,Whole Blood 97 mg/dL (75-99)
--- NOTE | 2016-07-09 07:07 | PN ---
ADDENDUM: FINAL DIAGNOSIS: Severe protein calorie malnutrition.
[2016-07-09] MEDS: INSULIN LISPRO (humaLOG) 300 UNIT/3 ML VIAL SQ SCH ×3 (07:22→17:31)
[2016-07-09 07:40] VITALS: RESP 16; TEMP 97.6
[2016-07-09] MEDS: IPRATROPIUM-ALBUTEROL 3 ML NEB INHALATION SCH ×3 (08:42→16:12)
[2016-07-09] MEDS: amLODIPine 5 MG TAB PO SCH (09:09)
[2016-07-09] MEDS: PANTOPRAZOLE 40 MG TABLET PO SCH ×2 (09:09→17:30)
[2016-07-09] MEDS: methylPREDNISolone SOD SUCCI 125 MG/2 ML VIAL IV SCH (09:09)
[2016-07-09] MEDS: HEPARIN SODIUM,PORCINE 5,000 UNIT/ML 1 ML VIAL SQ SCH (09:09)
[2016-07-09] MEDS: NICOTINE 14MG/24HR PATCH TRANSDERM SCH (09:09)
[2016-07-09] MEDS: METOPROLOL TARTRATE 25 MG TAB PO SCH (09:09)
[2016-07-09 09:25] LABS: Basophils # (A) 0.1 k/uL (0-0.2); Basophils % (A) 0 %; CH 28.1; CHCM 31.6; Eosinophils # (A) 0.2 k/uL (0-0.7); Eosinophils % (A) 1 %; HCT 40.7 % (39.0-53.0); HDW 2.71; Luc # (Auto) 0.18; Luc % (Auto) 1; Lymphocytes # (A) 1.1 k/uL (1.0-4.8); Lymphocytes % (A) 4 %; MCH 28.5 pg (25.0-35.0); MCHC 31.9 g/dL (31.0-37.0); MCV 89.5 fL (80.0-100.0); Mean Platelet Volume 7.1; Monocytes # (A) 1.8 k/uL (0-1.0); Monocytes % (A) 7 %; Neutrophils % (A) 87 %; RBC 4.55 m/uL (4.30-5.90); WBC (Perox) 27.18
[2016-07-09 10:00] LABS: WBC 26.4 k/uL (3.8-10.6)
[2016-07-09 10:08] LABS: ALT 59 U/L (21-72); AST 38 U/L (17-59); Alkaline Phosphatase 278 U/L (38-126); Anion Gap 14 mmol/L; Blood Urea Nitrogen 29 mg/dL (9-20); Calcium 9.8 mg/dL (8.4-10.2); Carbon Dioxide 24 mmol/L (22-30); Chloride 97 mmol/L (98-107); Glucose 79 mg/dL (74-99); Non-African American GFR(MDRD) >60 (>60 ml/min/1.73 sqM); Potassium 5.6 mmol/L (3.5-5.1); Sodium 135 mmol/L (137-145); Total Bilirubin 0.7 mg/dL (0.2-1.3); Total Protein 8.1 g/dL (6.3-8.2)
[2016-07-09 11:37] LABS: Glucose,Whole Blood 117 mg/dL (75-99)
[2016-07-09 15:24] VITALS: BP 135/91; PULSE 89
[2016-07-09] MEDS ORDERED: SODIUM POLYSTYRENE SULFONATE 15 GM/60 ML BOTTLE PO STA ×2 (17:05→17:10)
[2016-07-09 17:29] LABS: Glucose,Whole Blood 106 mg/dL (75-99)
--- NOTE | 2016-07-09 17:49 | P.PN ---
Subjective 60-year-old male patient is being seen in follow-up. The patient is doing well and he has no specific complaints. Underwent a fine-needle aspirate of the left cervical lymph node/lesion yesterday and the final pathologic findings are still pending. He has no specific complaints other than some pain in his back and some occasional nausea. No shortness of breath. No change in mental status. No other significant events overnight.The CAT scan of the abdomen and pelvis was done and showed diffuse hepatic and HIS metastases and bilateral adrenal neoplasm consistent with metastatic disease. The nuclear bone scan showed diffuse O2 bled take metastatic disease involving the spine, ribs, sternum, sacrum, pelvis, shoulders, bilateral humerus and femur as and possibly another focus in the mid right tibial shaft. The patient is seen again today 07/09/2016 in follow-up. He is awake and alert in no acute distress. He is maintaining good O2 saturations in the 90s on room air. He is anxious to go home. The left neck mass biopsy was positive for metastatic adenocarcinoma consistent with lung primary. Oncology is following. Objective - Vital Signs Vital signs: Vital Signs Temp 97.6 F 07/09/16 15:23 Pulse 89 07/09/16 16:00 Resp 16 07/09/16 16:00 BP 135/91 07/09/16 15:23 Pulse Ox 98 07/09/16 15:23 Intake & Output 07/08/16 07/09/16 07/09/16 18:59 06:59 18:59 Intake Total 350 400 720 Balance 350 400 720 Intake: Intake, IV Titration 350 Amount D5w with KCl 20 Meq/l 1, 350 000 ml @ 50 mls/hr IV . Q20H [facility] Rx#:[id number] Oral 400 720 Other: Voiding Method Toilet Toilet Toilet Urinal Urinal Urinal # Voids 1 3 - Exam The patient appeared well nourished and normally developed. Vital signs as documented. Head exam is unremarkable. No scleral icterus or corneal arcus noted. Neck is without jugular venous distension, thyromegaly, or carotid bruits. Carotid upstrokes are brisk bilaterally. Lungs are clear to auscultation and percussion. Cardiac exam reveals the PMI to be normally sized and situated. Rhythm is regular. First and second heart sounds normal. No murmurs, rubs or gallops. Abdominal exam reveals normal bowel sounds, no masses , no organomegaly and no aortic enlargement. Extremities are nonedematous and both femoral and pedal pulses are normal. - Labs CBC & Chem 7: 07/09/16 08:11 07/09/16 08:11 Labs: Abnormal Lab Results - Last 24 Hours (Table) 07/08/16 07/09/16 07/09/16 Range/Units 20:55 08:11 08:11 WBC 26.4 H* (3.8-10.6) k/uL Plt Count 478 H (150-450) k/uL Neutrophils # 23.0 H (1.3-7.7) k/uL Monocytes # 1.8 H (0-1.0) k/uL Sodium 135 L (137-145) mmol/L Potassium 5.6 H (3.5-5.1) mmol/L Chloride 97 L (98-107) mmol/L BUN 29 H (9-20) mg/dL POC Glucose (mg/dL) 149 H (75-99) mg/dL Alkaline Phosphatase 278 H (38-126) U/L 07/09/16 07/09/16 Range/Units 11:35 17:27 WBC (3.8-10.6) k/uL Plt Count (150-450) k/uL Neutrophils # (1.3-7.7) k/uL Monocytes # (0-1.0) k/uL Sodium (137-145) mmol/L Potassium (3.5-5.1) mmol/L Chloride (98-107) mmol/L BUN (9-20) mg/dL POC Glucose (mg/dL) 117 H 106 H (75-99) mg/dL Alkaline Phosphatase (38-126) U/L Assessment and Plan Plan: Assessment 1 metastatic carcinoma likely of a lung primary. The patient has a right upper lobe mass in addition to mediastinal lymphadenopathy, cervical lymphadenopathy and extensive hepatic metastases and diffuse skeletal metastases. Fine-needle aspirate of the neck mass was done and confirmed metastatic adenocarcinoma of lung primary. 2 COPD 3 skeletal metastases 4 smoker 5 hypertension 6 osteoarthritis Plan: The patient was seen and evaluated by Dr. Betts. He is currently stable from the pulmonary standpoint. Oncology is on the case and will guide his treatment plan from here. He could follow-up in our office in 1-2 weeks' time. He is however encouraged to call sooner with any pulmonary complaints.
--- NOTE | 2016-07-09 19:26 | P.DS ---
Providers Date of admission: 07/06/16 19:30 Expected date of discharge: 07/09/16 Attending physician: Iam Alcala Consults: 07/06/16 19:25 Consult Physician Routine Consulting Provider: Delbert Edwards Consult Reason/Comments: COPD and lung mass Do you want consulting provider notified?: Yes Consult Physician Routine Consulting Provider: Keith Simpson Consult Reason/Comments: Lung mass Do you want consulting provider notified?: Yes Primary care physician: Sheila Kang [facility] Course: Final Diagnoses: 1.Metastatic malignancy with metastasis and the mediastinum, right bronchial adenopathy, fine-needle aspiration of neck mass confirmed metastatic carcinoma - lung primary. 2. Diffuse osteoblastic metastatic lesions in the skeletal system with a positive bone scan 3. Cervical lymphadenopathy and mass below the left ear, status post fine- needle aspiration biopsy of the lymph node, pathology pending 4. Possible hepatic metastasis with elevated LFTs 5. Hypertensive urgency, present on admission 6. Elevated d-dimer, pulmonary embolism ruled out 7. Leukocytosis 8. Increased platelets 9. History of nicotine dependence 10. Essential hypertension 11. History of THC 12.Degenerative joint disease 13. Moderate protein calorie malnutrition, BMI 17.5 Hospital course: This is a 60-year-old gentleman admitted with multiple medical problems including metastatic malignancy with multiple metastatic lesions of the lymph nodes of the lung ,cervical lymphadenopathy as well as metastatic lesions throughout the skeletal system per CT. Positive bone scan. Status post fine-needle aspiration biopsy of the lymph node/Left neck mass positive for metastatic adenocarcinoma-lung primary. Evaluated by oncology and pulmonary. Patient eager for discharge .Cleared by consults for discharge. Patient to follow-up with oncology regarding treatment plan and to follow-up with pulmonary. Patient is being discharged home in a stable condition with guarded prognosis. The impression and plan of care has been dictated as directed. : I performed a H&P examination of this patient and discussed the same with the dictator. I agree with the dictator's note. Any additional findings/opinions/ etc. will be noted. Plan - Discharge Summary New Discharge Prescriptions: amLODIPine [Norvasc] 5 mg PO BID #60 tab Docusate [Colace] 100 mg PO DAILY PRN #30 cap PRN Reason: Constipation Metoprolol Tartrate [Lopressor] 25 mg PO BID #60 tab Nicotine 14Mg/24Hr Patch [Habitrol] 1 patch TRANSDERM DAILY #30 patch Pantoprazole [Protonix] 40 mg PO AC-BID #60 tab predniSONE 10 mg PO DIRECTED #9 tab traMADol HCL [Ultram] 50 mg PO Q6HR PRN #20 tab PRN Reason: Pain Discharge Medication List Albuterol Sulfate [Proair Hfa] 2 puff INHALATION RT-Q6H PRN 05/18/16 [History] Docusate [Colace] 100 mg PO DAILY PRN #30 cap 07/09/16 [Rx] Metoprolol Tartrate [Lopressor] 25 mg PO BID #60 tab 07/09/16 [Rx] Nicotine 14Mg/24Hr Patch [Habitrol] 1 patch TRANSDERM DAILY #30 patch 07/09/16 [ Rx] Pantoprazole [Protonix] 40 mg PO AC-BID #60 tab 07/09/16 [Rx] amLODIPine [Norvasc] 5 mg PO BID #60 tab 07/09/16 [Rx] predniSONE 10 mg PO DIRECTED #9 tab 07/09/16 [Rx] traMADol HCL [Ultram] 50 mg PO Q6HR PRN #20 tab 07/09/16 [Rx] Follow up Appointment(s)/Referral(s): Keith Simpson MD [STAFF PHYSICIAN] - 1 Week Pearl Sosa MD [Primary Care Provider] - 3 Days Jeimy Betts MD [STAFF PHYSICIAN] - 2 Weeks [facility] Visiting Nurse, [NON-STAFF] - 1 Week Ambulatory/Diagnostic Orders: Comprehensive Metabolic Panel [LAB.AMB] Time Frame: 3 Days, Location: Determined By Patient Activity/Diet/Wound Care/Special Instructions: Diet low potassium diet Pathology pending . Ensure supplements 3 times a day between meals and daily at bedtime snack Activity: Limited until follow up Discharge Disposition: HOME WITH HOME HEALTH SERVICES
== END 2016-07-09 19:12 | disposition home health service (06) | DRG 180 ==
LOC: EC 16:36 → 5ONC 19:30
PROVIDERS: ADMIT Internal Medicine; ATTEND Internal Medicine
PROC: 0JB43ZX Excision of Right Neck Subcutaneous Tissue and Fascia, Percutaneous Approach, Diagnostic (ICD-10-PCS; principal; 2016-07-07)
DX: C34.11 Malignant neoplasm of upper lobe, right bronchus or lung (principal); E43 Unspecified severe protein-calorie malnutrition; C77.0 Secondary and unspecified malignant neoplasm of lymph nodes of head, face and neck; C78.7 Secondary malignant neoplasm of liver and intrahepatic bile duct; C77.1 Secondary and unspecified malignant neoplasm of intrathoracic lymph nodes; C79.51 Secondary malignant neoplasm of bone; Z68.1 Body mass index [BMI] 19.9 or less, adult; I16.0 Hypertensive urgency; I10 Essential (primary) hypertension; M19.91 Primary osteoarthritis, unspecified site; F17.200 Nicotine dependence, unspecified, uncomplicated; F12.929 Cannabis use, unspecified with intoxication, unspecified; J44.9 Chronic obstructive pulmonary disease, unspecified; Z79.899 Other long term (current) drug therapy
CPT/HCPCS: 36415; 38505; 70460; 71020; 71275; 74177; 76942; 78306; 80053; 82550; 82553; 83036; 83735; 83880; 84153; 84484; 85025; 85379; 85610; 85730; 88305; 88341; 88342; 93005; 94640

== ENCOUNTER → 2016-10-28 | Outpatient (CLI) | payer OTHER ==
[2016-10-28 10:12] LABS: Blood Urea Nitrogen 13 mg/dL (9-20); Non-African American GFR(MDRD) >60 (>60 ml/min/1.73 sqM)
--- NOTE | 2016-10-28 12:20 | CT ---
EXAMINATION TYPE: CT ChestAbdPelvis w con DATE OF EXAM: 10/28/2016 INDICATION: Patient has no complaints at time of service. Follow up study for known lung ca with kane moreno. COMPARISON: 07/07/2016 CT DLP: 435.9 mGycm CONTRAST: Performed with Oral Contrast and with IV Contrast, patient injected with 100 mL of Omnipaque 300. TECHNIQUE: Axial images at 5 mm thick sections. Reconstructed images in the coronal plane. Delayed images through the kidneys. FINDINGS: CT CHEST: Portion of the thyroid visualized is normal. There is a 0.8 x 1.7 cm spiculated mass right upper lobe. Series 4 image 21. This is suspicious for n eoplasm. Some minimal pneumonitis changes in the periphery of the lingula. Series 4 image 30. Emphyse matous blebs and bulla are present. A 1.6 cm right peribronchial lymph node is evident which is enlarged. Small aortopulmonic window lymp h node is present. The ascending aorta diameter at the level of the main pulmonary artery is 3.6 cm. The main pulmonary artery diameter at the bifurcation is 2.[address] ABDOMEN: Liver: There is extensive hypodensity scattered to the left and right lobes of the liver with some pe ripheral enhancement suspicious for multiple metastatic lesions. The largest in the right mid lobe me asures 4 cm in diameter. These were present previously and are somewhat better defined on the current examination. Spleen: Normal Pancreas: Normal Adrenal glands: Right adrenal gland is enlarged measuring 5.2 x 3.0 cm. There is marked enlargement o f the left adrenal gland measuring 6.9 x 6.2 cm in size. Left adrenal gland is slightly larger than p rior. Right adrenal gland is essentially stable to diminished. Gallbladder: Decompressed Kidneys: No masses are evident. No hydronephrosis is present. No cysts are present. Delayed images were obtained through the kidneys, which remain unremarkable. There is a 0.3 cm calcification withou t obstruction in the mid left kidney medially. Aorta: Vascular calcification is within the aorta. Inferior vena cava: Normal. CT PELVIS: Loops of bowel within the abdomen and pelvis are normal. Loops of bowel distended with oral contr ast normal. Fecal debris is in the transverse colon. Fecal debris is at the level the rectum. Appendix: Normal as visualized. Urinary bladder: Normal. Genitourinary structures: Prostate is prominent contains a couple of calcifications. Osseous structures: A sclerotic metastasis in the medial right iliac wing is not excluded. There mult iple scattered sclerotic areas through the thoracic and lumbar spine. Some additional sclerotic areas are within the iliac wings. There may be a sclerotic metastasis within the distal intertrochanteric region right hip. Sacral metastasis is likely present. Sclerotic metastasis within the ribs may be pr esent. IMPRESSIONS: 1. Enlarging left adrenal gland. Right adrenal gland appears similar or slightly diminished. 2. Better defined multiple metastatic lesions within the liver may be treated metastasis. The largest measuring 4.0 cm is likely slightly diminished from 4.4 cm previous. 3. Suspicious spiculated mass right upper lobe. 4. Enlarged right peribronchial lymph node in right hilar lymph node 5. Multiple sclerotic metastases. 6. Nonobstructing medial left mid renal stone.
== END | disposition home or self-care (01) ==
LOC: RADCTMAIN 09:31
PROVIDERS: ATTEND Internal Medicine Hematology & Oncology
DX: C78.7 Secondary malignant neoplasm of liver and intrahepatic bile duct (principal); C79.51 Secondary malignant neoplasm of bone; C34.11 Malignant neoplasm of upper lobe, right bronchus or lung; N20.0 Calculus of kidney; R59.0 Localized enlarged lymph nodes; E27.8 Other specified disorders of adrenal gland; Z88.0 Allergy status to penicillin
CPT/HCPCS: 82565; 84520; 71260; 74177; 36415; Q9967

== ENCOUNTER → 2017-04-10 | Outpatient (CLI) | payer OTHER ==
[2017-04-10 16:02] LABS: Blood Urea Nitrogen 13 mg/dL (9-20)
--- NOTE | 2017-04-12 23:45 | CT ---
EXAMINATION TYPE: CT ChestAbdPelvis w con DATE OF EXAM: 04/10/2017 COMPARISON: 02/05/2017 and 10/28/2016 HISTORY: 61-year-old male FOLLOW UP FOR LUNG CANCER. Observation for suspected metastases. TECHNIQUE: Contiguous axial scanning of the chest, abdomen, and pelvis performed with IV Contrast, pa tient injected with 100 mL of Omnipaque 300. Delayed images through the kidneys were obtained. Starr l/sagittal reconstructions performed. CT DLP: 469.8 mGycm Automated exposure control for dose reduction was used. FINDINGS: CHEST: The heart is normal size without pericardial effusion. The aorta is ectatic at 3.6 cm. Conventional arch vessel branching anatomy with mild atherosclerotic arch calcifications. 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 Previous right tracheobronchial angle lymph node has decreased in size now measuring 8 mm as compared to 1.2 cm, previously. No thoracic lymphadenopathy seen by CT size criteria. Spiculated nodule right upper lobe measures 1.2 x 0.6 cm versus 1.2 x 0.7 cm on 02/05/2017 and 1.4 x 0.9 cm on 10/28/2016. There is background of mild to moderate centrilobular emphysema. Focal subpleural patch of groundglass in the left upper lobe axial image 24 is unchanged. ABDOMEN: Multiple hypodense liver lesions are redemonstrated, largest in the right hepatic lobe measures 3.8 c m, not significantly changed. One lesion in segment 3 seen slightly more confluent measuring 3.1 x 3. 4 cm versus 2.9 x 2.6 cm, previously. However, lesion in the anterior mid liver measures 1.8 cm versu s 2.6 cm, previously. Portal venous system is patent. Bilateral centrally necrotic adrenal masses are demonstrated, measuring up to 8.6 x 7.3 cm on the lef t versus 8.5 x 7.2 cm on 02/05/2017 and 8.4 x 7.2 cm on 02/05/2017. On the right, the mass measures 4 .5 x 2.9 cm versus 5.0 x 3.3 cm on 02/05/2017 and 5.0 x 3.2 cm on 02/05/2017. Possibility of intra-abdominal fat limits assessment for abdominal lymphadenopathy. No dilated small bowel, free fluid, or free air. Moderate stool burden. Right kidney, spleen, and pancreas show no gross abnormality. Subcentimeter hypodensity left kidney t oo small for accurate CT characterization, likely cyst. Tiny 4 mm nonobstructive calculus left mid po le. ABDOMEN: Bladder under distended. There seems to be a small amount of pelvic free fluid. This may relate to mi ld anasarca type changes. Difficult to assess for any pelvic lymphadenopathy due to lack of fat. Bones: Diffuse osteoblastic lesions within the proximal femurs, pelvis, sacrum, throughout the spine, ribs, and right scapula are unchanged. IMPRESSION: 1. SPICULATED NODULE RIGHT UPPER LOBE RELATIVELY STABLE TO MINIMALLY SMALLER (1.2 X 0.6 CM VERSUS 1.4 X 0.9 CM ON 10/28/2016). 2. RIGHT TRACHEOBRONCHIAL ANGLE LYMPH NODE DECREASED IN SIZE (NOW 8 MM VERSUS 1.2 CM, PREVIOUSLY). 3. NUMEROUS HEPATIC METASTASES. LARGEST MEASURES 3.8 CM AND IS STABLE. SOME OF THESE HAVE FLUCTUATED IN THE INTERVAL, FOR EXAMPLE, ONE LESION IN THE LEFT LOBE APPEARS MORE CONFLUENT NOW MEASURING 3.4 CM WHEREAS ANOTHER LESION IN THE MID LIVER IS SMALLER NOW MEASURING 1.8 CM CM VERSUS 2.6 CM, PREVIOUSLY . 4. BILATERAL PARTIALLY NECROTIC ADRENAL MASSES MEASURING UP TO 8.6 CM ON THE LEFT AND 4.5 CM ON THE R IGHT ARE RELATIVELY STABLE, MINIMALLY DECREASED IN SIZE ON THE RIGHT (5.0 CM, PREVIOUSLY). 5. DIFFUSE OSTEOBLASTIC METASTASES ARE UNCHANGED. 6. COPD, CACHEXIA, MILD ANASARCA-TYPE CHANGE, AND SMALL AMOUNT OF PELVIC FREE FLUID.
== END | disposition home or self-care (01) ==
LOC: RADCTMAIN 15:30
PROVIDERS: ATTEND Internal Medicine Hematology & Oncology
DX: C34.11 Malignant neoplasm of upper lobe, right bronchus or lung (principal); C78.7 Secondary malignant neoplasm of liver and intrahepatic bile duct; C79.51 Secondary malignant neoplasm of bone; E27.8 Other specified disorders of adrenal gland; J44.9 Chronic obstructive pulmonary disease, unspecified; R64 Cachexia; R60.1 Generalized edema; Z88.0 Allergy status to penicillin
CPT/HCPCS: 82565; 84520; 71260; 74177; 36415; Q9967

== ENCOUNTER 2017-06-06 14:11 | Emergency (ER) | payer OTHER ==
[2017-06-06] MEDS ORDERED: IOPAMIDOL-300 CONTRAST 30 ML VIAL (ORAL USE) PO PRN (15:16)
[2017-06-06] MEDS ORDERED: RX INFO: IV CONTRAST WAS GIVEN 1 EACH MISC MISCELLANE PRN (15:16)
[2017-06-06] MEDS ORDERED: SODIUM CHLORIDE 0.9% 500 ML IV ONE (15:17)
[2017-06-06] MEDS ORDERED: MORPHINE SULFATE 4MG/4ML SYRG IVP STA (15:17)
[2017-06-06] MEDS ORDERED: ONDANSETRON 4 MG/2 ML VIAL IVP STA (15:17)
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
[2017-06-06 16:00] LABS: Anion Gap 14 mmol/L; Blood Urea Nitrogen 14 mg/dL (9-20); Calcium 8.5 mg/dL (8.4-10.2); Carbon Dioxide 21 mmol/L (22-30); Chloride 105 mmol/L (98-107); Glucose 102 mg/dL (74-99); Potassium 4.6 mmol/L (3.5-5.1); Sodium 140 mmol/L (137-145)
[2017-06-06 16:15] LABS: Anisocytosis Moderate; HCT 30.8 % (39.0-53.0); HGB 9.1 gm/dL (13.0-17.5); Hypochromasia Marked; MCH 27.5 pg (25.0-35.0); MCHC 29.6 g/dL (31.0-37.0); MCV 92.9 fL (80.0-100.0); Macrocytosis Slight; Mean Platelet Volume 7.4; Platelet Count 398 k/uL (150-450); Poikilocytosis Slight; RBC 3.31 m/uL (4.30-5.90); RDW 20.4 % (11.5-15.5); WBC 17.8 k/uL (3.8-10.6)
[2017-06-06 16:30] VITALS: RESP 16
[2017-06-06] MEDS ORDERED: SODIUM CHLORIDE 0.9% 1,000 ML IV SCH (16:45)
[2017-06-06 16:51] LABS: Band Neutrophils % 23 %; Eosinophils # (M) 0.18 k/uL (0-0.7); Lymphocytes # (M) 0.71 k/uL (1.0-4.8); Metamyelocytes # (M) 0.18 k/uL (0); Metamyelocytes % 1 %; Monocytes # (M) 0.53 k/uL (0-1.0); Neutrophils % (M) 70 %; Nucleated Red Blood Cells 0 /100 WBC (0-0); Total Cells Counted 200
[2017-06-06 16:55] LABS: Anisocytosis (M) Present; Dohle Bodies Present; Pelger-Huet Neutrophils Present; Toxic Granulation Present; Toxic Vacuolation Present
[2017-06-06 17:36] LABS: Appearance,Urine Clear (Clear); Bilirubin,Urine Negative (Negative); Blood,Urine Negative (Negative); Color,Urine Yellow; Glucose,Urine (UA) Negative (Negative); Ketones,Urine Negative (Negative); Leukocyte Esterase,Urine Negative (Negative); Nitrite,Urine Negative (Negative); PH, Urine 6.5 (5.0-8.0); Protein,Urine Trace (Negative); Specific Gravity,Urine 1.014 (1.001-1.035)
--- NOTE | 2017-06-06 18:35 | CT ---
EXAMINATION TYPE: CT abdomen pelvis w con DATE OF EXAM: 06/06/2017 COMPARISON: Prior CT chest abdomen pelvis 04/10/2017 HISTORY: Generalized pain with nausea and vomiting CT DLP: 384.2 mGycm Automated exposure control for dose reduction was used. TECHNIQUE: Helical acquisition of images from the lung bases through the pelvis have been completed. CONTRAST: Performed with Oral Contrast and with IV Contrast, patient injected with 100 mL of Isovue 300. FINDINGS: LUNG BASES: Minimal dependent atelectatic changes, no pleural or pericardial effusion AORTA: No significant abnormality is appreciated. LIVER/GB: Multiple low attenuation foci are scattered within the liver similar to prior exam PANCREAS: No significant abnormality is seen. SPLEEN: No significant abnormality is seen. ADRENALS: Bilateral masses are again noted and are similar in appearance KIDNEYS: No significant abnormality is seen. REPRODUCTIVE ORGANS: Some scrotal hyperemia noted on the left. BOWEL: Contrast has not coursed distally within the small bowel.. FREE AIR: No Free Air visible. ASCITES: Some fluid present within the abdomen. There are changes of anasarca. PELVIC ADENOPATHY: None visualized. RETROPERITONEAL ADENOPATHY: No Retroperitoneal Adenopathy visible. URINARY BLADDER: No significant abnormality is seen. OSSEOUS STRUCTURES: Multiple areas of abnormal sclerosis throughout the skeleton. IMPRESSION: METASTATIC DISEASE SIMILAR TO PRIOR EXAM. Follow-up could be performed to assess for progress of cont rast within the bowel. Anasarca similar to prior exam.
--- NOTE | 2017-06-06 18:48 | XR ---
EXAMINATION TYPE: XR chest 2V DATE OF EXAM: 06/06/2017 COMPARISON: Prior chest x-ray 02/07/[address] 04/10/2017 HISTORY: Lung carcinoma, constipation and pain TECHNIQUE: Frontal and lateral views of the chest are obtained. FINDINGS: Cardiac mediastinal silhouette, pulmonary vascularity and sandro are stable. No evident airs pace disease, pneumothorax, or pleural effusion. Small spiculated density in the right upper lobe not significantly changed IMPRESSION: Similar findings. Right upper lobe density is small.
[2017-06-06 19:16] VITALS: BP 116/75; PULSE 89; TEMP 98.6
[2017-06-06] MEDS ORDERED: MAGNESIUM CITRATE 296 ML BOTTLE PO ONE (19:25)
== END 2017-06-06 19:48 | disposition home or self-care (01) ==
LOC: EC 14:11
DX: K59.00 Constipation, unspecified (principal); R10.84 Generalized abdominal pain; R11.2 Nausea with vomiting, unspecified; C34.90 Malignant neoplasm of unspecified part of unspecified bronchus or lung; F17.200 Nicotine dependence, unspecified, uncomplicated; Z79.1 Long term (current) use of non-steroidal anti-inflammatories (NSAID); Z79.899 Other long term (current) drug therapy; Z79.891 Long term (current) use of opiate analgesic; Z88.0 Allergy status to penicillin
CPT/HCPCS: 36415; 80048; 83605; 85025; 81003; 71046; 74177; 99284; 96374; 96375; 96361 ×4; J2405; Q9967; J2270

== ENCOUNTER → 2017-07-14 | Outpatient (CLI) | payer OTHER ==
[2017-07-14 12:03] LABS: Blood Urea Nitrogen 14 mg/dL (9-20)
--- NOTE | 2017-07-14 14:44 | CT ---
EXAMINATION TYPE: CT ChestAbdPelvis w con DATE OF EXAM: 07/14/2017 COMPARISON: 06/06/2017, 04/10/2017 HISTORY: 61 year-old male lung cancer; Metastatic disease to liver, Bone metastasis TECHNIQUE: Contiguous axial scanning of the chest, abdomen, and pelvis performed with IV Contrast, pa tient injected with 100 ml mL of Isovue 300. Delayed images through the kidneys were obtained. Starr l/sagittal reconstructions performed. CT DLP: 980 mGycm Automated exposure control for dose reduction was used. FINDINGS: Chest: Diffuse cachexia. Heart normal size without pericardial effusion. Upper descending thoracic aorta mildly aneurysmal at 3.3 cm. Conventional arch vessel branching anato my. No new thoracic lymphadenopathy. No enlarged thoracic lymph nodes identified. 1 cm spiculated right upper lobe nodule is stable to minimally smaller from 04/10/2017 (1.2 cm, previo usly). Mild to moderate centrilobular emphysema in the upper lungs. No consolidation or pleural effusion. ABDOMEN: Redemonstrated are multiple hepatic metastases In the central liver, a confluent mass measures 5.0 cm versus 5.1 cm, previously, not significantly c hanged. Peripheral right hepatic lobe lesion measures 2.0 cm versus 1.6 cm, previously. Anterior segm ent 4 left liver lobe lesion measures 2.2 cm versus 2.1 cm, previously. Portal venous system is patent. No biliary ductal dilatation. Gallbladder, right kidney, spleen, and pancreas show no gross abnormal body. 4 mm nonobstructive left renal calculus. There is some minimal cortical hypodensity medial upper pole left kidney of uncertain clinical significance. Redemonstrated large centrally necrotic adrenal masses measuring up to 8.6 cm on the left, unchanged, and 4.3 cm on the right, also unchanged. Suggestion of some underlying chip hepatic lymphadenopathy measuring up to 2.0 cm this may be slight ly larger measuring 1.5 cm, previously. Cachexia and lack of intra-abdominal fat limits assessment for lymphadenopathy. No dilated small bowel or free air. Moderate stool burden. Pelvis: Bladder is nondistended. Small amount of pelvic free fluid as seen previously. Interval improvement in the patient's anasarca. Bones: Diffuse osteoblastic lesions are redemonstrated without much interval change. IMPRESSION: 1. SPICULATED RIGHT UPPER LOBE NODULE STABLE TO MINIMALLY SMALLER (1 CM VERSUS 1.2 CM ON 04/10/2017). 2. NUMEROUS HEPATIC MASSES ARE LARGELY UNCHANGED ARE DIFFUSE OSTEOBLASTIC METASTASES. 3. BILATERAL CENTRALLY NECROTIC ADRENAL MASSES ARE UNCHANGED MEASURING UP TO 8.6 CM ON THE LEFT AND 4 .3 CM ON THE RIGHT. 4. SUGGESTION OF SOME UNDERLYING PORTAHEPATIC LYMPHADENOPATHY CURRENTLY MEASURING 2.0 CM VERSUS 1.5 C M, PREVIOUSLY. SLIGHT INTERVAL INCREASE IN SIZE. 5. COPD, CACHEXIA AND SMALL AMOUNT OF PELVIC FREE FLUID. IMPROVEMENT IN THE ANASARCA CHANGES.
== END | disposition home or self-care (01) ==
LOC: RADCTMAIN 11:05
PROVIDERS: ATTEND Internal Medicine Hematology & Oncology
DX: C34.11 Malignant neoplasm of upper lobe, right bronchus or lung (principal); C78.7 Secondary malignant neoplasm of liver and intrahepatic bile duct; C79.51 Secondary malignant neoplasm of bone; E27.8 Other specified disorders of adrenal gland; J44.9 Chronic obstructive pulmonary disease, unspecified; R64 Cachexia; Z88.0 Allergy status to penicillin
CPT/HCPCS: 82565; 84520; 71260; 74177; 36415; Q9967

== ENCOUNTER 2017-08-14 18:12 | Inpatient (IN) | payer OTHER ==
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
[2017-08-14] MEDS ORDERED: MORPHINE SULFATE 2 MG/ML SYRINGE IV STA (19:02)
[2017-08-14] MEDS ORDERED: SODIUM CHLORIDE 0.9% 1,000 ML IV STA (19:02)
[2017-08-14] MEDS ORDERED: ONDANSETRON 4 MG/2 ML VIAL IVP STA (19:02)
[2017-08-14 19:46] LABS: Anisocytosis Slight; Basophils % (A) 0 %; Eosinophils # (A) 0.6 k/uL (0-0.7); Eosinophils % (A) 6 %; HCT 40.9 % (39.0-53.0); HGB 12.3 gm/dL (13.0-17.5); Hypochromasia Marked; Lymphocytes # (A) 0.8 k/uL (1.0-4.8); Lymphocytes % (A) 8 %; MCH 26.6 pg (25.0-35.0); MCV 88.7 fL (80.0-100.0); Mean Platelet Volume 6.7; Monocytes # (A) 0.5 k/uL (0-1.0); Monocytes % (A) 6 %; Neutrophils # (A) 7.5 k/uL (1.3-7.7); Neutrophils % (A) 79 %; Platelet Count 511 k/uL (150-450); RBC 4.61 m/uL (4.30-5.90); RDW 18.3 % (11.5-15.5); WBC 9.5 k/uL (3.8-10.6)
[2017-08-14 19:59] LABS: Creatine Kinase 49 U/L (55-170)
[2017-08-14 20:10] LABS: ALT 32 U/L (21-72); AST 30 U/L (17-59); Alkaline Phosphatase 253 U/L (38-126); Amylase 68 U/L (30-110); Anion Gap 12 mmol/L; Blood Urea Nitrogen 12 mg/dL (9-20); Calcium 8.6 mg/dL (8.4-10.2); Carbon Dioxide 23 mmol/L (22-30); Chloride 104 mmol/L (98-107); Glucose 78 mg/dL (74-99); Lipase <10 U/L (23-300); Sodium 139 mmol/L (137-145); Total Bilirubin 0.4 mg/dL (0.2-1.3); Total Protein 7.9 g/dL (6.3-8.2)
[2017-08-14 20:13] LABS: Creatine Kinase MB 0.2 ng/mL (0.0-2.4); Troponin I <0.012 ng/mL (0.000-0.034)
[2017-08-14 20:14] LABS: Potassium 4.7 mmol/L (3.5-5.1)
[2017-08-14 20:26] LABS: INR 1.1 (<1.2); Partial Thromboplastin Time 26.3 sec (22.0-30.0); Prothrombin Time 10.8 sec (9.0-12.0)
[2017-08-14 20:28] LABS: D-Dimer 1.61 mg/L FEU (<0.60)
--- NOTE | 2017-08-14 21:26 | CT ---
EXAMINATION TYPE: CT angio chest DATE OF EXAM: 08/14/2017 9:13 PM COMPARISON: NONE HISTORY: Chest pain CT DLP: 159.3 mGycm Automated exposure control for dose reduction was used. CONTRAST: CTA scan of the thorax is performed with IV Contrast, patient injected with 100 mL of Isovue 370, pul monary embolism protocol. There are 3-D post processed images.. FINDINGS: There is minimal pulmonary emphysema. There are scattered reticular and tiny nodular densities in the lungs. There is no pleural effusion. There is a stellate 1 cm infiltrate in the right upper lobe ant eriorly. There is no pericardial effusion. There is normal contrast opacification of the pulmonary arteries. I see no filling defect. Ascending aorta measures 3.7 cm. There is no evidence of aneurysm or dissecti on. There is no mediastinal adenopathy. There are no hilar masses. The bony thorax shows variable scl erotic extensive foci involving the thoracic vertebral bodies. There is extension into the pedicles. IMPRESSION: OSTEOBLASTIC METASTATIC DISEASE IN THE THORACIC SPINE. NO EVIDENCE OF PULMONARY EMBOLISM. EMPHYSEMA. SCATTERED SMALL NODULAR DENSITIES IN THE LUNGS. THERE I S A 10 MM STELLATE NODULE IN THE RIGHT UPPER LOBE. TUMOR AT THIS LOCATION IS POSSIBLE. This appears s table compared to the chest CT scan of 07/14/2017. Hepatic hypodensities consistent with tumor.
[2017-08-14] MEDS ORDERED: NITROGLYCERIN SL TABS 0.4 MG TAB SUBLINGUAL PRN (21:28)
[2017-08-14] MEDS ORDERED: IPRATROPIUM-ALBUTEROL 3 ML NEB INHALATION PRN (21:29)
[2017-08-14] MEDS ORDERED: hydrALAZINE HCL 20 MG/ML 1 ML VIAL IVP STA (21:29)
--- NOTE | 2017-08-14 21:34 | CT ---
EXAMINATION TYPE: CT abdomen pelvis w con DATE OF EXAM: 08/14/2017 COMPARISON: 07/14/2017 HISTORY: Chest pain abdominal pain CT DLP: mGycm Automated exposure control for dose reduction was used. TECHNIQUE: Helical acquisition of images was performed from the lung bases through the pelvis. CONTRAST: Isovue 100 mL IV. FINDINGS: There are numerous variable sized hypodense lesions in the liver. These measure up to 4 cm. The bile ducts are not dilated. Spleen appears normal. There is 8.5 cm irregular mass in the region of the lef t adrenal gland. This has internal septations and has low density and soft tissue density component. The bile ducts are not dilated. The kidneys show satisfactory contrast opacification. There is no hydronephrosis. There is no evidenc e of a bowel obstruction. There is no evidence of free air. There is some free fluid in the pelvis. Bladder distends smoothly. There is extensive osteoblastic change in the visualized bony structures. IMPRESSION: OSTEOBLASTIC METASTATIC DISEASE. LARGE LEFT ADRENAL MASS CONSISTENT WITH TUMOR. EXTENSIVE HEPATIC MET ASTATIC DISEASE. MILD FREE FLUID IN THE PELVIS IS SLIGHTLY INCREASED COMPARED TO OLD EXAM. NO FREE AI R. NO EVIDENCE OF A BOWEL OBSTRUCTION. NONOBSTRUCTING SMALL LEFT RENAL CALCULUS.
[2017-08-14] MEDS: MORPHINE SULFATE 2 MG/ML SYRINGE IV PRN (22:04)
[2017-08-15 02:15] LABS: Creatine Kinase 38 U/L (55-170)
[2017-08-15 02:29] LABS: Creatine Kinase MB 0.3 ng/mL (0.0-2.4); Troponin I <0.012 ng/mL (0.000-0.034)
[2017-08-15] MEDS: MORPHINE SULFATE 2 MG/ML SYRINGE IV PRN ×3 (06:14→18:36)
[2017-08-15] MEDS: ONDANSETRON 4 MG/2 ML VIAL IVP PRN ×2 (08:04→21:03)
[2017-08-15] MEDS: ASPIRIN 325 MG TAB PO SCH (10:19)
[2017-08-15 10:27] LABS: Cholesterol 153 mg/dL (<200); HDL Cholesterol 47 mg/dL (40-60); LDL Cholesterol,Calculated 87 mg/dL (0-99); Triglycerides 96 mg/dL (<150)
[2017-08-15 10:35] LABS: Creatine Kinase 41 U/L (55-170)
[2017-08-15 10:48] LABS: Creatine Kinase MB 0.3 ng/mL (0.0-2.4); Troponin I <0.012 ng/mL (0.000-0.034)
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
[2017-08-15] MEDS: HEPARIN SODIUM,PORCINE 5,000 UNIT/ML 1 ML VIAL SQ SCH ×2 (17:33→22:21)
[2017-08-15] MEDS: FAMOTIDINE 20 MG/2 ML VIAL IV SCH (22:21)
[2017-08-16] MEDS: MORPHINE SULFATE 2 MG/ML SYRINGE IV PRN (05:21)
[2017-08-16] MEDS: ASPIRIN 325 MG TAB PO SCH (10:13)
[2017-08-16] MEDS: HEPARIN SODIUM,PORCINE 5,000 UNIT/ML 1 ML VIAL SQ SCH ×2 (10:13→20:24)
[2017-08-16] MEDS: FAMOTIDINE 20 MG/2 ML VIAL IV SCH ×2 (10:13→20:24)
[2017-08-16 11:41] LABS: Anisocytosis Slight; Basophils % (A) 0 %; Eosinophils # (A) 0.5 k/uL (0-0.7); Eosinophils % (A) 7 %; HCT 37.7 % (39.0-53.0); HGB 11.1 gm/dL (13.0-17.5); Hypochromasia Marked; Lymphocytes # (A) 0.6 k/uL (1.0-4.8); Lymphocytes % (A) 8 %; MCH 26.7 pg (25.0-35.0); MCHC 29.4 g/dL (31.0-37.0); MCV 90.8 fL (80.0-100.0); Mean Platelet Volume 6.3; Monocytes # (A) 0.6 k/uL (0-1.0); Monocytes % (A) 8 %; Neutrophils # (A) 5.5 k/uL (1.3-7.7); Neutrophils % (A) 75 %; Platelet Count 471 k/uL (150-450); RBC 4.15 m/uL (4.30-5.90); WBC 7.3 k/uL (3.8-10.6)
[2017-08-16 11:59] LABS: ALT 32 U/L (21-72); AST 20 U/L (17-59); Albumin 3.1 g/dL (3.5-5.0); Alkaline Phosphatase 214 U/L (38-126); Anion Gap 8 mmol/L; Bilirubin, Delta 0.3 mg/dL (0.0-0.2); Blood Urea Nitrogen 10 mg/dL (9-20); Calcium 8.1 mg/dL (8.4-10.2); Carbon Dioxide 27 mmol/L (22-30); Chloride 101 mmol/L (98-107); Glucose 78 mg/dL (74-99); Potassium 4.8 mmol/L (3.5-5.1); Sodium 136 mmol/L (137-145); Total Bilirubin 0.3 mg/dL (0.2-1.3); Total Protein 6.4 g/dL (6.3-8.2)
[2017-08-16] MEDS: ONDANSETRON 4 MG/2 ML VIAL IVP PRN (13:08)
--- NOTE | 2017-08-16 18:57 | P.PN ---
Subjective This is a pleasant 61 years old male with past medical history of COPD, hypertension, ARTHRITIS, lung cancer, stage IV, S/P radiation and chemotherapy last time was about 7 weeks ago who presents because of chest pain which is started off one-day duration. The Left Side Radiating to the Lower Abdomen. On Achy and Nonspecific. 10/02, down to /10 in Severity not Associated with Dyspnea or Syncope or Dizziness , also patient states he has some back pain however he denies any urinary or bowel problems or incontinence. Patient denies any weakness or abnormal sensation and he states his gait is at his baseline. Patient denies any headache or blurred vision some difficulty swallowing 08/16/2017 pt was lying in bed , still complains from chest pain , no dyspnea , no fever or change in bowel or urine habits. oncology team evaluated pt and their input is appreciated , awaiting cardiology evaluation Objective - Vital Signs Vital signs: Vital Signs Temp 98.3 F 08/16/17 12:00 Pulse 85 08/16/17 12:00 Resp 16 08/16/17 15:22 BP 154/94 08/16/17 12:00 Pulse Ox 99 08/16/17 12:00 Intake & Output 08/15/17 08/16/17 08/16/17 18:59 06:59 18:59 Intake Total 600 Output Total 100 Balance 600 -100 Weight 49.5 kg 52 kg Intake: Oral 600 Output: Emesis 100 Other: Voiding Method Urinal Urinal # Voids 2 2 3 # Emeses 1 - Exam GENERAL: The patient is alert and oriented x3, not in any acute distress. Well developed, well nourished. HEENT: Pupils are round and equally reacting to light. EOMI. No scleral icterus. No conjunctival pallor. Normocephalic, atraumatic. No pharyngeal erythema. No thyromegaly. CARDIOVASCULAR: S1 and S2 present. No murmurs, rubs, or gallops. PULMONARY: Chest is clear to auscultation, no wheezing or crackles. ABDOMEN: Soft, nontender, nondistended, normoactive bowel sounds. No palpable organomegaly. MUSCULOSKELETAL: No joint swelling or deformity. EXTREMITIES: No cyanosis, clubbing, or pedal edema. NEUROLOGICAL: Gross neurological examination did not reveal any focal deficits. SKIN: No rashes. - Labs CBC & Chem 7: 08/16/17 10:51 08/16/17 10:51 Labs: Abnormal Lab Results - Last 24 Hours (Table) 08/16/17 08/16/17 Range/Units 10:51 10:51 RBC 4.15 L (4.30-5.90) m/uL Hgb 11.1 L (13.0-17.5) gm/dL Hct 37.7 L (39.0-53.0) % MCHC 29.4 L (31.0-37.0) g/dL RDW 18.0 H (11.5-15.5) % Plt Count 471 H (150-450) k/uL Lymphocytes # 0.6 L (1.0-4.8) k/uL Sodium 136 L (137-145) mmol/L Creatinine 0.60 L (0.66-1.25) mg/dL Calcium 8.1 L (8.4-10.2) mg/dL Delta Bilirubin 0.3 H (0.0-0.2) mg/dL Alkaline Phosphatase 214 H (38-126) U/L Albumin 3.1 L (3.5-5.0) g/dL Assessment and Plan Assessment: -Chest pain syndrome -Lung cancer stage IV with metastatic disease -History of COPD -Hypertension -OA -Current cigarette smoker Plan: Admit patient to the general medical floor. Continue with the indication. Resume his home medication. 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 Extensive hepatic metastatic disease. With no evidence of bowel obstruction or PE. We'll do serial troponins, call cardiology consult. Also call oncologist hr receptionist for further evaluation. Continue with DVT and GI prophylaxis. Further recommendation based on his clinical course Prognosis is guarded Discussed with the patient he prefers to be full code
[2017-08-17] MEDS: MORPHINE SULFATE 2 MG/ML SYRINGE IV PRN ×3 (00:06→20:12)
[2017-08-17] MEDS: HEPARIN SODIUM,PORCINE 5,000 UNIT/ML 1 ML VIAL SQ SCH ×2 (07:17→21:51)
[2017-08-17] MEDS: FAMOTIDINE 20 MG/2 ML VIAL IV SCH (07:17)
[2017-08-17] MEDS: ONDANSETRON 4 MG/2 ML VIAL IVP PRN (07:17)
[2017-08-17] MEDS: ASPIRIN 325 MG TAB PO SCH (07:17)
[2017-08-17 10:31] LABS: Anion Gap 9 mmol/L; Blood Urea Nitrogen 13 mg/dL (9-20); Calcium 8.2 mg/dL (8.4-10.2); Carbon Dioxide 25 mmol/L (22-30); Chloride 103 mmol/L (98-107); Glucose 79 mg/dL (74-99); Potassium 4.8 mmol/L (3.5-5.1); Sodium 137 mmol/L (137-145)
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
[2017-08-17] MEDS: amLODIPine 2.5 MG TAB PO SCH ×2 (13:50→13:52)
[2017-08-17] MEDS ORDERED: HYDROcodone/APAP 7.5-325MG 1 EACH TAB PO PRN (19:24)
--- NOTE | 2017-08-17 19:33 | P.PN ---
Subjective Progress Note Date: 08/17/17 Principal diagnosis: chest pain, hypertension Pt seen in f/u today, he is feeling better then on admit, he is on BP meds now, no further c/o chest pain, he is having pain in the ribs and back, he is tolerating oral intake, no c/o constipation at this time. Objective - Vital Signs Vital signs: Vital Signs Temp 97.7 F 08/17/17 15:00 Pulse 101 H 08/17/17 15:00 Resp 16 08/17/17 15:00 BP 138/97 08/17/17 15:00 Pulse Ox 97 08/17/17 15:00 Intake & Output 08/17/17 08/17/17 08/18/17 06:59 18:59 06:59 Output Total 950 Balance -950 Output: Urine 950 Other: # Voids 3 # Bowel Movements 1 - Constitutional General appearance: Present: cooperative, no acute distress, thin - EENT ENT: Present: normal oropharynx - Respiratory Respiratory: bilateral: CTA - Cardiovascular Heart sounds: normal: S1, S2 - Gastrointestinal General gastrointestinal: Present: normal bowel sounds, soft - Neurologic Neurologic: Present: CNII-XII intact - Musculoskeletal Musculoskeletal: Present: strength equal bilaterally - Psychiatric Psychiatric: Present: A&O x's 3, appropriate affect, intact judgment & insight - Labs CBC & Chem 7: 08/16/17 10:51 08/17/17 09:39 Labs: Abnormal Lab Results - Last 24 Hours (Table) 08/17/17 Range/Units 09:39 Creatinine 0.64 L (0.66-1.25) mg/dL Calcium 8.2 L (8.4-10.2) mg/dL Assessment and Plan (1) Metastatic lung cancer (metastasis from lung to other site) Narrative/Plan: Pt recently started on cyramza, would like to continue immunotherapy once pt feeling better, he is due for cycle 4, typically immunotherapy take 4-6 cycles for most objective response. Pt does seem to be doing ok on it at this time. Current Visit: Yes Status: Acute Priority: High Code(s): C34.90 - MALIGNANT NEOPLASM OF UNSP PART OF UNSP BRONCHUS OR LUNG SNOMED Code(s): 06580524 (2) Pain due to malignant neoplasm metastatic to bone Narrative/Plan: Oral breakthrough narcotic pain med started, cont fentanyl for now. Recheck pain in AM Current Visit: Yes Status: Acute Priority: High Code(s): G89.3 - NEOPLASM RELATED PAIN (ACUTE) (CHRONIC); C79.51 - SECONDARY MALIGNANT NEOPLASM OF BONE SNOMED Code(s): 687440004 Plan: Cardiology following pt. Recommended to pt that he take BP as prescribed by Cardiology, will try to get Rx for BP cuff for pt
[2017-08-17] MEDS: FAMOTIDINE 20 MG TAB PO SCH (21:51)
--- NOTE | 2017-08-17 23:52 | P.PN ---
Subjective This is a pleasant 61 years old male with past medical history of COPD, hypertension, ARTHRITIS, lung cancer, stage IV, S/P radiation and chemotherapy last time was about 7 weeks ago who presents because of chest pain which is started off one-day duration. The Left Side Radiating to the Lower Abdomen. On Achy and Nonspecific. /10, down to 6/10 in Severity not Associated with Dyspnea or Syncope or Dizziness , also patient states he has some back pain however he denies any urinary or bowel problems or incontinence. Patient denies any weakness or abnormal sensation and he states his gait is at his baseline. Patient denies any headache or blurred vision some difficulty swallowing 08/16/2017 pt was lying in bed , still complains from chest pain , no dyspnea , no fever or change in bowel or urine habits. oncology team evaluated pt and their input is appreciated , awaiting cardiology evaluation Objective - Vital Signs Vital signs: Vital Signs Temp 97.7 F 08/17/17 15:00 Pulse 101 H 08/17/17 15:00 Resp 16 08/17/17 15:00 BP 138/97 08/17/17 15:00 Pulse Ox 97 08/17/17 15:00 Intake & Output 08/17/17 08/17/17 08/18/17 06:59 18:59 06:59 Output Total 950 Balance -950 Output: Urine 950 Other: # Voids 3 # Bowel Movements 1 - Exam GENERAL: The patient is alert and oriented x3, not in any acute distress. Well developed, well nourished. HEENT: Pupils are round and equally reacting to light. EOMI. No scleral icterus. No conjunctival pallor. Normocephalic, atraumatic. No pharyngeal erythema. No thyromegaly. CARDIOVASCULAR: S1 and S2 present. No murmurs, rubs, or gallops. PULMONARY: Chest is clear to auscultation, no wheezing or crackles. ABDOMEN: Soft, nontender, nondistended, normoactive bowel sounds. No palpable organomegaly. MUSCULOSKELETAL: No joint swelling or deformity. EXTREMITIES: No cyanosis, clubbing, or pedal edema. NEUROLOGICAL: Gross neurological examination did not reveal any focal deficits. SKIN: No rashes. - Labs CBC & Chem 7: 08/16/17 10:51 08/17/17 09:39 Labs: Abnormal Lab Results - Last 24 Hours (Table) 08/17/17 Range/Units 09:39 Creatinine 0.64 L (0.66-1.25) mg/dL Calcium 8.2 L (8.4-10.2) mg/dL Assessment and Plan Assessment: -Chest pain syndrome -Lung cancer stage IV with metastatic disease -History of COPD -Hypertension -OA -Current cigarette smoker Plan: Admit patient to the general medical floor. Continue with the indication. Resume his home medication. 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 Extensive hepatic metastatic disease. With no evidence of bowel obstruction or PE. We'll do serial troponins, cardiology consult is appreciated , they recommended echo: pending . Also call oncologist manager construction for further evaluation. Continue with DVT and GI prophylaxis. Further recommendation based on his clinical course Prognosis is guarded Discussed with the patient he prefers to be full code
[2017-08-18] MEDS: MORPHINE SULFATE 2 MG/ML SYRINGE IV PRN ×2 (02:08→20:26)
[2017-08-18 06:27] VITALS: RESP 16
[2017-08-18] MEDS: ONDANSETRON 4 MG/2 ML VIAL IVP PRN (08:06)
[2017-08-18] MEDS: ASPIRIN 81 MG PO SCH (09:54)
[2017-08-18] MEDS: FAMOTIDINE 20 MG TAB PO SCH ×2 (09:54→20:26)
[2017-08-18] MEDS: POLYETHYLENE GLYCOL 3350 17 GM POWD.PACK PO SCH (09:55)
[2017-08-18] MEDS: HEPARIN SODIUM,PORCINE 5,000 UNIT/ML 1 ML VIAL SQ SCH ×3 (09:55→20:32)
[2017-08-18] MEDS: amLODIPine 2.5 MG TAB PO SCH (09:55)
--- NOTE | 2017-08-18 11:03 | ECHOF ---
Referral Reason: MEASUREMENTS -------- HEIGHT: 177.8 cm WEIGHT: 51.7 kg BP: 171/88 RVIDd: 2.3 cm (< 3.3) IVSd: 0.9 cm (0.6 - 1.1) LVIDd: 4.1 cm (3.9 - 5.3) LVPWd: 1.0 cm (0.6 - 1.1) IVSs: 1.5 cm LVIDs: 3.3 cm LVPWs: 1.8 cm LA Diam: 3.4 cm (2.7 - 3.8) LAESV Index (A-L): 26.45 ml/m Ao Diam: 3.5 cm (2.0 - 3.7) AV Cusp: 2.1 cm (1.5 - 2.6) MV EXCURSION: 21.236 mm (> 18.000) MV EF SLOPE: 122 mm/s (70 - 150) EPSS: 0.9 cm MV E John: 0.55 m/s MV DecT: 190 ms MV A John: 0.71 m/s MV E/A Ratio: 0.77 RAP: 5.00 mmHg RVSP: 33.95 mmHg FINDINGS -------- Sinus rhythm. This was a technically good study. The left ventricular size is normal. Left ventricular wall thickness is normal. Overall left vent ricular systolic function is normal with, an EF between 55 - 60 %. The right ventricle is normal in size. Normal LA size by volume 22+/-6 ml/m2. The right atrium is normal in size. The aortic valve is trileaflet and appears structurally normal. Mild mitral regurgitation is present. Mild tricuspid regurgitation present. There is borderline pulmonary hypertension. The right ventr icular systolic pressure, as measured by Doppler, is 33.95mmHg. Trace/mild (physiologic) pulmonic regurgitation. The aortic root size is normal. Normal inferior vena cava with normal inspiratory collapse consistent with estimated right atrial pre ssure of 5 mmHg. There is no pericardial effusion. CONCLUSIONS -------- 1. Sinus rhythm. 2. This was a technically good study. 3. The left ventricular size is normal. 4. Left ventricular wall thickness is normal. 5. Overall left ventricular systolic function is normal with, an EF between 55 - 60 %. 6. The right ventricle is normal in size. 7. Normal LA size by volume 22+/-6 ml/m2. 8. The right atrium is normal in size. 9. The aortic valve is trileaflet and appears structurally normal. 10. Mild mitral regurgitation is present. 11. Mild tricuspid regurgitation present. 12. There is borderline pulmonary hypertension. 13. The right ventricular systolic pressure, as measured by Doppler, is 33.95mmHg. 14. Trace/mild (physiologic) pulmonic regurgitation. 15. The aortic root size is normal. 16. Normal inferior vena cava with normal inspiratory collapse consistent with estimated right atrial pressure of 5 mmHg. 17. There is no pericardial effusion. TOOTH CUTTER SPUR: Patito Walton RDCS
[2017-08-18 13:57] VITALS: BMI 16.4
--- NOTE | 2017-08-18 19:01 | P.PN ---
Subjective This is a pleasant 61 years old male with past medical history of COPD, hypertension, ARTHRITIS, lung cancer, stage IV, S/P radiation and chemotherapy last time was about 7 weeks ago who presents because of chest pain which is started off one-day duration. The Left Side Radiating to the Lower Abdomen. On Achy and Nonspecific. /10, down to 6/10 in Severity not Associated with Dyspnea or Syncope or Dizziness , also patient states he has some back pain however he denies any urinary or bowel problems or incontinence. Patient denies any weakness or abnormal sensation and he states his gait is at his baseline. Patient denies any headache or blurred vision some difficulty swallowing 08/16/2017 pt was lying in bed , still complains from chest pain , no dyspnea , no fever or change in bowel or urine habits. oncology team evaluated pt and their input is appreciated , awaiting cardiology evaluation 08/18/2017 Patient clinically looks the same, his echo was done which shows ejection fraction 55-60%. Her last for cardiology follow-up Objective - Vital Signs Vital signs: Vital Signs Temp 97.7 F 08/18/17 14:55 Pulse 96 08/18/17 14:55 Resp 16 08/18/17 14:55 BP 130/85 08/18/17 14:55 Pulse Ox 97 08/18/17 14:55 Intake & Output 08/18/17 08/18/17 08/19/17 06:59 18:59 06:59 Weight 52 kg Other: # Voids 2 3 # Bowel Movements 1 - Exam GENERAL: The patient is alert and oriented x3, not in any acute distress. Well developed, well nourished. HEENT: Pupils are round and equally reacting to light. EOMI. No scleral icterus. No conjunctival pallor. Normocephalic, atraumatic. No pharyngeal erythema. No thyromegaly. CARDIOVASCULAR: S1 and S2 present. No murmurs, rubs, or gallops. PULMONARY: Chest is clear to auscultation, no wheezing or crackles. ABDOMEN: Soft, nontender, nondistended, normoactive bowel sounds. No palpable organomegaly. MUSCULOSKELETAL: No joint swelling or deformity. EXTREMITIES: No cyanosis, clubbing, or pedal edema. NEUROLOGICAL: Gross neurological examination did not reveal any focal deficits. SKIN: No rashes. - Labs CBC & Chem 7: 08/16/17 10:51 06/25/18 09:39 Assessment and Plan Assessment: -Chest pain syndrome -Lung cancer stage IV with metastatic disease -History of COPD -Hypertension -OA -Current cigarette smoker Plan: Admit patient to the general medical floor. Continue with the indication. Resume his home medication. 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 Extensive hepatic metastatic disease. With no evidence of bowel obstruction or PE. We'll do serial troponins, cardiology consult is appreciated , they recommended echo: pending . Also call oncologist patient consumer marketer for further evaluation. Continue with DVT and GI prophylaxis. Further recommendation based on his clinical course Prognosis is guarded Discussed with the patient he prefers to be full code
[2017-08-18 22:34] VITALS: BP 141/89; TEMP 97
[2017-08-19] MEDS ORDERED: MORPHINE SULFATE 2 MG/ML SYRINGE ONE (02:40)
[2017-08-19] MEDS ORDERED: POLYETHYLENE GLYCOL 3350 17 GM POWD.PACK PO ONE (08:00)
[2017-08-19] MEDS ORDERED: FAMOTIDINE 20 MG TAB ONE (08:00)
[2017-08-19] MEDS ORDERED: amLODIPine 2.5 MG TAB ONE (08:00)
[2017-08-19] MEDS ORDERED: ONDANSETRON 4 MG/2 ML VIAL ONE (08:00)
[2017-08-19] MEDS ORDERED: ASPIRIN 81 MG ONE (08:00)
[2017-08-19 11:02] VITALS: PULSE 98
--- NOTE | 2017-08-19 11:54 | CDI ---
Last Revision, January 2017 Documentation Clarification Form Date: 08/19/2017 12:00:00 AM From: Bertha Rocha RN, CCDS Admit Date: 08/18/2017 3:28:00 PM Patient Name: Gavin Rice Visit Number: [id number] Discharge Date: ATTENTION: The Clinical Documentation Specialists (CDI) and [facility] Coding Staff appreciate your assistance in clarifying documentation. Please respond to the clarification below the line at the bottom and electronically sign. The CDI & [facility] Coding staff will review the response and follow-up if needed. Please note: Queries are made part of the Legal Health Record. If you have any questions, please contact the author of this message via ITS. Dr. Bullock E Jonah Chest pain syndrome is in your H&P and progress notes. 08/15/15 present with chest pain 08/19/15 Change to inpatient Patient history/risk factors: Primary lung adenocarcinoma stage IV, with liver and bone metastasis. Clinical Indicators: Present with chest ribs and back pain. Left side radiating to the lower abdomen. Pain 8/10 down to 6/10 in severity, not associated with dyspnea or syncope or dizziness. CT chest: no PE, There were scattered small nodular densities in the lungs. CT abdomen and pelvis revealed numerous variable-sized lesions in the liver. Vital Signs: 141/;89 88 16 97.0 Other Clinical Indicators: Oncology (Dr. Simpson) Pain due to malignant neoplasm, metastatic to bone. Cardiology consult: Chest pain atypical, no acute coronary syndrome. Treatment: Fentanyl Patch Morphine IV PRN, [place] PRN In your professional opinion, can you please further clarify chest pain syndrome and if pain is related to? Pain due to malignant neoplasm, metastatic to bone Other, please specify Unable to determine Please continue to document in your progress notes and discharge summary in order to capture severity of illness and risk of mortality. Include clinical findings that support your diagnosis. unable to determine MTDD
--- NOTE | 2017-08-19 12:57 | P.DS ---
Providers Date of admission: 08/18/17 15:28 Attending physician: Nissa Beach Consults: 08/14/17 21:28 Consult Physician Routine Consulting Provider: Keith Simpson Consult Reason/Comments: known Do you want consulting provider notified?: Yes 08/16/17 18:55 Consult Physician Routine Consulting Provider: Emanuel Hanks Consult Reason/Comments: chest pain Do you want consulting provider notified?: Yes Primary care physician: Donavan Ryan [facility] Course: This is a pleasant 61 years old male with past medical history of COPD, hypertension, ARTHRITIS, lung cancer, stage IV, S/P radiation and chemotherapy last time was about 7 weeks ago who presents because of chest pain which is started off one-day duration. The Left Side Radiating to the Lower Abdomen. On Achy and Nonspecific. 8/10, down to 6/10 in Severity not Associated with Dyspnea or Syncope or Dizziness , also patient states he has some back pain however he denies any urinary or bowel problems or incontinence. Patient denies any weakness or abnormal sensation and he states his gait is at his baseline. Patient denies any headache or blurred vision some difficulty swallowing. Vehicle Sales Professional have evaluated the patient. Patient on admission has CTPA which showed osteoblastic metastatic disease to the thoracic spine, no evidence of PE. Scattered small nodular density in the lungs with possible metastases Acute coronary event has been ruled out. Recommended to resume his amlodipine. Echo: EF 55-60%, LV wall thickness is normal. Dr. Simpson from oncology team saw the patient. Patient was recently started on Cyramza and they recommended immunotherapy once patient feels better is a due to fourth cycle of therapy. Patient was cleared by oncology and cardiology team for discharge. Physical therapy evaluated the patient and they recommended home health care versus [facility], however patient prefers home with [facility] and occupational therapy recommended home with home health care Patient was found stable and can be discharged home however he needs follow-up as an outpatient Patient telling me that he has an appointment with his oncologist for his chemotherapy on this coming Thursday and he has all the current DrPia information and timing and the transportation set up for him Patient Condition at Discharge: Undetermined Plan - Discharge Summary Discharge Rx Participant: Yes New Discharge Prescriptions: No Action Folic Acid 1 mg PO DAILY Albuterol Inhaler [Ventolin Hfa Inhaler] 1 - 2 puff INHALATION RT-Q6H PRN PRN Reason: Shortness Of Breath fentaNYL 25MCG/HR PATCH [Duragesic 25MCG/HR] 25 mcg TRANSDERM Q72H Meloxicam [Mobic] 7.5 mg PO DAILY Ondansetron HCl [Zofran] 4 mg PO DAILY PRN PRN Reason: Nausea amLODIPine BESYLATE [Norvasc] 2.5 mg PO DAILY Acetaminophen [Tylenol] 500 mg PO Q6HR PRN PRN Reason: Pain Discharge Medication List Albuterol Inhaler [Ventolin Hfa Inhaler] 1 - 2 puff INHALATION RT-Q6H PRN [History] Folic Acid 1 mg PO DAILY 02/05/17 [History] Meloxicam [Mobic] 7.5 mg PO DAILY 02/05/17 [History] Ondansetron HCl [Zofran] 4 mg PO DAILY PRN 02/05/17 [History] fentaNYL 25MCG/HR PATCH [Duragesic 25MCG/HR] 25 mcg TRANSDERM Q72H 02/05/17 [ History] Acetaminophen [Tylenol] 500 mg PO Q6HR PRN 08/14/17 [History] amLODIPine BESYLATE [Norvasc] 2.5 mg PO DAILY 08/14/17 [History] Follow up Appointment(s)/Referral(s): Keith Simpson MD [STAFF PHYSICIAN] - 08/24/17 1:00 pm (this is chemo appt at the [facility] office) Pearl Sosa MD [Primary Care Provider] - 1-2 days [facility] Visiting Nurse, [NON-STAFF] - 1 Week
[2017-08-19] MEDS: ASPIRIN 81 MG PO SCH (13:02)
[2017-08-19] MEDS: FAMOTIDINE 20 MG TAB PO SCH (13:02)
[2017-08-19] MEDS: HEPARIN SODIUM,PORCINE 5,000 UNIT/ML 1 ML VIAL SQ SCH (13:02)
[2017-08-19] MEDS: amLODIPine 2.5 MG TAB PO SCH (13:02)
[2017-08-19] MEDS: POLYETHYLENE GLYCOL 3350 17 GM POWD.PACK PO SCH (13:02)
--- NOTE | 2017-08-25 08:58 | CDI ---
Last Revision, January 2017 Documentation Clarification Form Date: 08/19/2017 12:00:00 AM From: Bertha Rocha Admit Date: 08/18/2017 3:28:00 PM Patient Name: Gavin Rice Visit Number: [id number] Discharge Date: ATTENTION: The Clinical Documentation Specialists (CDI) and [facility] Coding Staff appreciate your assistance in clarifying documentation. Please respond to the clarification below the line at the bottom and electronically sign. The CDI & [facility] Coding staff will review the response and follow-up if needed. Please note: Queries are made part of the Legal Health Record. If you have any questions, please contact the author of this message via ITS. Dr. Kobe Mckenzie Chest pain syndrome is in your H&P and progress notes. 08/15/15 present with chest pain 08/19/15 Change to inpatient Patient history/risk factors: Primary lung adenocarcinoma stage IV, with liver and bone metastasis. Clinical Indicators: Present with chest ribs and back pain. left side radiating to the lower abdomen. Pain 8/10 down to 6/10 in severity, not associated with dyspnea or syncope or dizziness. CT chest: no PE, There were scattered small nodular densities in the lungs. CT abdomen and pelvis revealed numerous variable-sized lesions in the liver. Vital Signs: 141/;89 88 16 97.0 07/28/17 Oncology (Dr. Simpson) Pain due to malignant neoplasm, metastatic to bone. Cardiology consult: Chest pain atypical, no acute coronary syndrome. Treatment: Fentanyl Patch Morphine IV PRN, [place] PRN In your professional opinion, can you please further clarify chest pain syndrome and if pain is related to? Pain due to malignant neoplasm, metastatic to bone Other, please specify Unable to determine Please continue to document in your progress notes and discharge summary in order to capture severity of illness and risk of mortality. Include clinical findings that support your diagnosis. unable to determine MTDD
== END 2017-08-19 14:57 | disposition home health service (06) | DRG 313 ==
LOC: EC 18:12 → 3OBS 21:30 → 4MS4W 08-15 18:17 → OBSVTOIN 08-18 15:28
PROVIDERS: ADMIT Hospitalist; ATTEND Hospitalist
DX: R07.89 Other chest pain (principal); R64 Cachexia; C78.7 Secondary malignant neoplasm of liver and intrahepatic bile duct; C79.51 Secondary malignant neoplasm of bone; C79.72 Secondary malignant neoplasm of left adrenal gland; C77.0 Secondary and unspecified malignant neoplasm of lymph nodes of head, face and neck; C34.11 Malignant neoplasm of upper lobe, right bronchus or lung; Z68.1 Body mass index [BMI] 19.9 or less, adult; G89.3 Neoplasm related pain (acute) (chronic); N28.9 Disorder of kidney and ureter, unspecified; I10 Essential (primary) hypertension; E86.0 Dehydration; J44.9 Chronic obstructive pulmonary disease, unspecified; M19.91 Primary osteoarthritis, unspecified site; F17.210 Nicotine dependence, cigarettes, uncomplicated; Z79.1 Long term (current) use of non-steroidal anti-inflammatories (NSAID); Z79.891 Long term (current) use of opiate analgesic; Z79.899 Other long term (current) drug therapy; Z87.81 Personal history of (healed) traumatic fracture; Z92.21 Personal history of antineoplastic chemotherapy; Z88.0 Allergy status to penicillin; Z92.3 Personal history of irradiation
CPT/HCPCS: 36415; 71275; 74177; 80048; 80053; 80061; 80076; 82150; 82550; 82553; 83690; 83735; 84484; 85025; 85379; 85610; 85730; 93005; 93306; 94760; 96361; 96374; 96375; 99285

== ENCOUNTER 2017-09-23 17:16 | Inpatient (IN) | payer OTHER ==
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
[2017-09-23] MEDS ORDERED: SODIUM CHLORIDE 0.9% 1,000 ML IV ONE ×2 (18:04→18:46)
[2017-09-23] MEDS: MORPHINE SULFATE 4 MG/ML SYRINGE IVP STA ×2 (18:08→18:18)
[2017-09-23] MEDS ORDERED: DEXTROSE 5%-0.45% NACL 1,000 ML IV ONE (18:46)
[2017-09-23] MEDS ORDERED: ONDANSETRON 4 MG/2 ML VIAL IVP PRN (18:46)
[2017-09-23] MEDS ORDERED: MORPHINE SULFATE 4 MG/ML SYRINGE IVP PRN ×2 (18:46→23:36)
[2017-09-23 18:56] LABS: Anisocytosis Slight; Basophils % (A) 0 %; Eosinophils # (A) 0.7 k/uL (0-0.7); Eosinophils % (A) 6 %; HCT 35.6 % (39.0-53.0); HGB 10.6 gm/dL (13.0-17.5); Hypochromasia Moderate; Lymphocytes # (A) 0.9 k/uL (1.0-4.8); Lymphocytes % (A) 8 %; MCH 26.4 pg (25.0-35.0); MCHC 29.9 g/dL (31.0-37.0); MCV 88.2 fL (80.0-100.0); Mean Platelet Volume 6.5; Monocytes # (A) 0.4 k/uL (0-1.0); Monocytes % (A) 4 %; Neutrophils % (A) 81 %; Platelet Count 584 k/uL (150-450); RBC 4.03 m/uL (4.30-5.90); RDW 18.3 % (11.5-15.5); WBC 11.1 k/uL (3.8-10.6)
[2017-09-23 19:08] LABS: Partial Thromboplastin Time 27.5 sec (22.0-30.0)
[2017-09-23 19:17] LABS: ALT 42 U/L (21-72); AST 34 U/L (17-59); Albumin 3.5 g/dL (3.5-5.0); Alkaline Phosphatase 300 U/L (38-126); Anion Gap 9 mmol/L; Blood Urea Nitrogen 23 mg/dL (9-20); Calcium 9.3 mg/dL (8.4-10.2); Carbon Dioxide 25 mmol/L (22-30); Chloride 104 mmol/L (98-107); Glucose 82 mg/dL (74-99); Potassium 5.1 mmol/L (3.5-5.1); Sodium 138 mmol/L (137-145); Total Bilirubin 0.3 mg/dL (0.2-1.3); Total Protein 6.9 g/dL (6.3-8.2)
[2017-09-23 19:34] LABS: Creatine Kinase 36 U/L (55-170)
[2017-09-23 19:46] LABS: Creatine Kinase MB 0.3 ng/mL (0.0-2.4); Troponin I <0.012 ng/mL (0.000-0.034)
--- NOTE | 2017-09-23 19:53 | XR ---
EXAMINATION: XR chest 2V DATE AND TIME: 09/23/2017 7:33 PM ORDERING PROVIDER: Chava Gómez DO CLINICAL INDICATION: Chest Pain; history of lung carcinoma and chemotherapy. TECHNIQUE: PA and lateral COMPARISON: None. DESCRIPTION: The lungs appear to be clear bilaterally. No pulmonary edema. No major atelectasis or evident pneumon ia. The pleural spaces are negative bilaterally. The cardiac silhouette is normal. The aorta is tortuous and ectatic. The extrathoracic soft tissues are unremarkable. There are multifocal hypersclerotic foci consistent with multifocal skeletal metastases. IMPRESSION: NO ACUTE PULMONARY/PLEURAL PROCESS.
[2017-09-23] MEDS ORDERED: IPRATROPIUM-ALBUTEROL 3 ML NEB INHALATION PRN (23:05)
[2017-09-23] MEDS: HYDROcodone/APAP 10-325MG 1 EACH TAB PO PRN (23:41)
[2017-09-23] MEDS: amLODIPine 5 MG TAB PO SCH (23:41)
[2017-09-23] MEDS: HYDROmorphone 1 MG/ML 1 ML SYRINGE IVP PRN (23:42)
[2017-09-24] MEDS: HYDROmorphone 1 MG/ML 1 ML SYRINGE IVP PRN ×4 (05:05→20:28)
[2017-09-24] MEDS: ONDANSETRON 4 MG TAB PO PRN ×3 (07:57→22:40)
[2017-09-24] MEDS: amLODIPine 5 MG TAB PO SCH (07:58)
[2017-09-24] MEDS: PANTOPRAZOLE 40 MG/10 ML VIAL IVP SCH (07:58)
[2017-09-24] MEDS: ENOXAPARIN 40 MG/0.4 ML SYRINGE SQ SCH (07:59)
[2017-09-24] MEDS: IPRATROPIUM-ALBUTEROL 3 ML NEB INHALATION SCH ×4 (08:20→20:00)
[2017-09-24] MEDS: HYDROcodone/APAP 10-325MG 1 EACH TAB PO PRN ×2 (10:55→22:40)
[2017-09-24 11:56] VITALS: BMI 15.6
[2017-09-24] MEDS ORDERED: POLYETHYLENE GLYCOL 3350 17 GM POWD.PACK PO PRN ×2 (12:03→12:04)
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
[2017-09-24 15:41] VITALS: RESP 16
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
--- NOTE | 2017-09-24 19:44 | CT ---
EXAMINATION TYPE: CT ChestAbdPelvis w con DATE OF EXAM: 09/24/2017 COMPARISON: 08/14/2017 HISTORY: Restaging, increased pain, weight loss. History of lung cancer. CT DLP: 585.4 mGycm Automated exposure control for dose reduction was used. CONTRAST: CT scan of the chest, abdomen and pelvis is performed with Oral Contrast and with IV Contrast, patien t injected with 100 mL of Isovue 300. FINDINGS: There is a 2 cm stellate infiltrate in the anterior right upper lobe. There is mild pulmonary emphyse ma. There is a 170 or subpleural infiltrate in the anterior left upper lobe. There is patchy linear i nfiltrate at the lung bases. There is small left pleural effusion. Heart size is normal. There is no mediastinal adenopathy. There are no hilar masses. There is multiple areas of variable sized hypodensity in the liver. These measure up to 5 cm. Spleen appears normal. There is a mixed density 8 cm mass in the left upper quadrant that is probably in the left adrenal gland. The pancreas is displaced anteriorly. The bile ducts are not dilated. There is some free fluid in the pelvis on the right side. There is enlargement of right adrenal gland that measures 4 x 2 cm. Kidneys show satisfactory contras t opacification. There is no hydronephrosis. There is 4 mm calculus in the interpolar left kidney. Ur eters are not dilated. There is no retroperitoneal adenopathy. Bladder distends smoothly. There is no evidence of a bowel obstruction. There is extensive osteoblastic change in the ribs and thoracic spi ne and pelvis. IMPRESSION: Stellate right upper lobe infiltrate could relate to tumor. This appears unchanged. Small subpleural infiltrate in the anterior left upper lobe is unchanged. There is new left pleural effusi on compared to old exam. Multiple low-density liver masses appear increased compared to old exam and consistent with metastati c disease. Bilateral adrenal masses. These are consistent with metastatic disease and appear unchange d. There is stable mild free fluid in the pelvis. Osseous metastatic disease without change.
[2017-09-25] MEDS: HYDROmorphone 1 MG/ML 1 ML SYRINGE IVP PRN (03:39)
[2017-09-25] MEDS: HYDROcodone/APAP 10-325MG 1 EACH TAB PO PRN (05:35)
[2017-09-25] MEDS: ONDANSETRON 4 MG TAB PO PRN (05:36)
[2017-09-25 06:06] VITALS: BP 165/88; TEMP 97
[2017-09-25] MEDS: IPRATROPIUM-ALBUTEROL 3 ML NEB INHALATION SCH ×2 (07:04→11:09)
[2017-09-25] MEDS: amLODIPine 5 MG TAB PO SCH (08:19)
[2017-09-25] MEDS: PANTOPRAZOLE 40 MG/10 ML VIAL IVP SCH (08:19)
[2017-09-25] MEDS: ENOXAPARIN 40 MG/0.4 ML SYRINGE SQ SCH (08:19)
[2017-09-25 09:20] VITALS: PULSE 91
--- NOTE | 2017-09-25 10:56 | P.DS ---
Providers Date of admission: 09/23/17 18:46 Attending physician: [place]issa [place] Consults: 09/23/17 18:46 Consult Physician Routine Consulting Provider: Keith Simpson Consult Reason/Comments: known Do you want consulting provider notified?: Yes Primary care physician: Sheila Kang [facility] Course: 62-year-old gentleman was admitted for chest pain and diffuse body pain secondary to bony metastasis from his lung cancer. Patient pain is well- controlled with the no code 10/325 patient will be started on bowel regimen will be discharged today after oncology clearance. Patient underwent repeat silva CT scans as a part of evaluation for response to his chemotherapy/biologic agents. Patient doesn't appear to have any worsening metastatic disease. Patient was evaluated by physical therapy, recommending home with home care. PHYSICAL EXAMINATION: GENERAL: The patient is alert and oriented x3, not in any acute distress. Thin built cachectic HEENT: Pupils are round and equally reacting to light. EOMI. No scleral icterus. No conjunctival pallor. Normocephalic, atraumatic. No pharyngeal erythema. No thyromegaly. CARDIOVASCULAR: S1 and S2 present. No murmurs, rubs, or gallops. PULMONARY: Chest is clear to auscultation, no wheezing or crackles. ABDOMEN: Soft, nontender, nondistended, normoactive bowel sounds. No palpable organomegaly. MUSCULOSKELETAL: No joint swelling or deformity. EXTREMITIES: No cyanosis, clubbing, or pedal edema. NEUROLOGICAL: Gross neurological examination did not reveal any focal deficits. SKIN: No rashes. Assessment and Plan Plan: Chest pain: Secondary to metastatic lesions to the bone from his lung cancer. -Stage IV lung cancer with bony metastasis: Patient is on immunotherapy -Severe cachexia [id number] protein calorie malnutrition secondary to cancer -Generalized deconditioning -Hypertension continue with amlodipine -COPD without any acute exacerbation Patient Condition at Discharge: Fair Plan - Discharge Summary Discharge Rx Participant: No New Discharge Prescriptions: New Polyethylene Glycol 3350 [Miralax] 17 gm PO DAILY PRN #30 powd.pack PRN Reason: Constipation Sennosides [Senna] 8.6 mg PO DAILY PRN #30 tablet PRN Reason: Constipation Continue Folic Acid 1 mg PO DAILY Albuterol Inhaler [Ventolin Hfa Inhaler] 1 - 2 puff INHALATION RT-Q6H PRN PRN Reason: Shortness Of Breath Ondansetron HCl [Zofran] 4 mg PO Q4H PRN PRN Reason: Nausea Acetaminophen [Tylenol] 500 mg PO Q6HR PRN PRN Reason: Pain HYDROcodone/APAP 10-325MG [[place] 10-325] 1 tab PO Q4HR PRN PRN Reason: Pain amLODIPine [Norvasc] 5 mg PO DAILY Discharge Medication List Albuterol Inhaler [Ventolin Hfa Inhaler] 1 - 2 puff INHALATION RT-Q6H PRN [History] Folic Acid 1 mg PO DAILY 02/05/17 [History] Ondansetron HCl [Zofran] 4 mg PO Q4H PRN 02/05/17 [History] Acetaminophen [Tylenol] 500 mg PO Q6HR PRN 08/14/17 [History] HYDROcodone/APAP 10-325MG [[place] 10-325] 1 tab PO Q4HR PRN 09/23/17 [History] amLODIPine [Norvasc] 5 mg PO DAILY 09/23/17 [History] Polyethylene Glycol 3350 [Miralax] 17 gm PO DAILY PRN #30 powd.pack 09/25/17 [Rx ] Sennosides [Senna] 8.6 mg PO DAILY PRN #30 tablet 09/25/17 [Rx] Follow up Appointment(s)/Referral(s): Pearl Sosa MD [Primary Care Provider] - 10/06/17 1:50 pm Patient Instructions/Handouts: Polyethylene Glycol 3350 (By mouth), Senna (By mouth), Chest Pain (DC), Acute Nausea and Vomiting (DC), Acute Abdominal Pain ( DC) Discharge Disposition: HOME WITH HOME HEALTH SERVICES
--- NOTE | 2017-09-25 13:29 | P.PN ---
Subjective Progress Note Date: 09/25/17 Principal diagnosis: intractable Pain Increasing Pain, not controlled as outpatient. Restaaging CT shows progressive disease Objective - Vital Signs Vital signs: Vital Signs Temp 97.0 F L 09/25/17 05:00 Pulse 91 09/25/17 09:13 Resp 16 09/25/17 09:13 BP 165/88 09/25/17 05:00 Pulse Ox 94 L 09/25/17 05:00 Intake & Output 09/24/17 09/25/17 09/25/17 18:59 06:59 18:59 Intake Total 240 830 480 Output Total 200 750 Balance 40 80 480 Weight 49.442 kg 49.442 kg Intake: Oral 240 830 480 Output: Urine 200 750 Other: Voiding Method Urinal Urinal Urinal # Voids 2 2 - Constitutional General appearance: Present: cooperative, no acute distress, thin - EENT Eyes: Present: EOMI, dentition normal, poor dentition ENT: Present: NA/AT, normal oropharynx - Neck Details: supple, trachea midline Neck: Present: normal ROM - Respiratory Respiratory: bilateral: CTA (No increased effort) - Cardiovascular Rhythm: regular Heart sounds: normal: S1, S2 - Peripheral edema leg Peripheral Edema: bilateral: 1+ - Gastrointestinal General gastrointestinal: Present: normal bowel sounds, soft, tenderness Localized gastrointestinal: rebound: diffuse, mass: diffuse - Integumentary Integumentary: Present: pale - Neurologic Neurologic Comment(s): No focal defects Neurologic: Present: CNII-XII intact - Musculoskeletal Musculoskeletal: Present: gait normal, generalized weakness, strength equal bilaterally - Psychiatric Psychiatric: Present: A&O x's 3, appropriate affect, intact judgment & insight - Labs CBC & Chem 7: 09/23/17 18:43 09/23/17 18:43 Assessment and Plan Plan: Assessment and Plan: 1. Non-Small Cell Lung Cancer with known Bone and Liver Metastasis: - On Cyramza single agent at this time (Anti-Angiogenesis) - Completed Chemotherapy in May 2017 - Reviewed restaging CT scans appears there is progressive disease, will have Mr. Rice follow-up as outpatient next week to discuss change in treatment plan for progressive symptomatic disease - Last Cyramza on 09/09/17 2. Intractable Persistent Pain Abdomen and Back, Not relieved with outpatient management: - Recent increase in fentanyl patch was not tolerated (went from 25mcg to 50mcg ) - Seen in office and changed to PO [place], no relief presented to ER on 09/23/17 - Control symptoms with PRN Pain management - Bowel Regimen for risk of narcotic induced constipation - Obtain CT scans C/A?P 3. MOderate Protein Calorie Malnutrition and 4lb weight loss over past week: - Protein Shakes - Dieticien to consult after initial work-up completed and cleared to eat - Re-educated - Addition of marinol or megace would be resonable but will await CT results Thank You for allowing us to care for this patient, further recs to follow. Brittney Fournier NP
== END 2017-09-25 11:00 | disposition home health service (06) | DRG 948 ==
LOC: EC 17:16 → 5MS5E 18:46
PROVIDERS: ADMIT Hospitalist; ATTEND Hospitalist
DX: G89.3 Neoplasm related pain (acute) (chronic) (principal); C34.90 Malignant neoplasm of unspecified part of unspecified bronchus or lung; C78.01 Secondary malignant neoplasm of right lung; C78.7 Secondary malignant neoplasm of liver and intrahepatic bile duct; C79.51 Secondary malignant neoplasm of bone; E44.0 Moderate protein-calorie malnutrition; Z68.1 Body mass index [BMI] 19.9 or less, adult; F17.200 Nicotine dependence, unspecified, uncomplicated; I10 Essential (primary) hypertension; J44.9 Chronic obstructive pulmonary disease, unspecified; M79.7 Fibromyalgia; R64 Cachexia; Z79.899 Other long term (current) drug therapy; Z86.73 Personal history of transient ischemic attack (TIA), and cerebral infarction without residual deficits; Z92.21 Personal history of antineoplastic chemotherapy; Z92.3 Personal history of irradiation; Z88.0 Allergy status to penicillin; R59.9 Enlarged lymph nodes, unspecified
CPT/HCPCS: 36415; 71046; 71260; 74177; 80053; 82550; 82553; 83735; 84484; 85025; 85379; 85610; 85730; 93005; 94640; 96361; 96374; 96376; 99285

== ENCOUNTER → 2017-10-06 | Outpatient (CLI) | payer OTHER ==
--- NOTE | 2017-10-06 14:56 | NM ---
EXAMINATION TYPE: NM bone scan whole body DATE OF EXAM: 10/06/2017 COMPARISON: 07/07/2016 HISTORY: Metastatic disease, lung carcinoma. Delayed whole-body scanning was performed following the injection of 22.5 mCi Tc 99m MDP. Images acq uired 3.5 hours post injection. FINDINGS: There is diffuse abnormal radiotracer accumulation throughout the axial and appendicular skeleton inv olving a greatest degree the thoracic and lumbar spine , sacrum, pelvis, numerous bilateral ribs, garrison rnum, shoulders, proximal left humeral shaft, left femoral neck, intertrochanteric region right femur . Evidence of periodontal disease. No new foci identified with certainty. Only area that appears to h ave progressed since proximal right humerus. IMPRESSION: Diffuse osseous metastatic disease as discussed above.
== END | disposition home or self-care (01) ==
LOC: RADNMMAIN 10:00
PROVIDERS: ATTEND Internal Medicine Hematology & Oncology
DX: C34.11 Malignant neoplasm of upper lobe, right bronchus or lung (principal); Z79.51 Long term (current) use of inhaled steroids; Z88.0 Allergy status to penicillin
CPT/HCPCS: 78306; A9503

== ENCOUNTER → 2017-12-03 | Outpatient (CLI) | payer OTHER ==
[2017-12-03 13:23] LABS: Blood Urea Nitrogen 16 mg/dL (9-20)
--- NOTE | 2017-12-03 16:21 | CT ---
EXAMINATION TYPE: CT ChestAbdPelvis w con DATE OF EXAM: 12/03/2017 COMPARISON: 09/24/2017 HISTORY: Metastatic lung cancer. Follow-up exam. CT DLP: 519.7 mGycm. Automated Exposure Control for Dose Reduction was Utilized. CONTRAST: CT scan of the thorax, abdomen and pelvis is performed with IV Contrast, patient injected with 100 mL of Isovue 300. FINDINGS: LUNGS: There is a spiculated right upper lobe pulmonary nodule compatible with the patient's known pr imary neoplasm. This measures 1.1 cm in greatest dimension on lung algorithm image 21. When measured in a similar fashion this is unchanged from the prior also measuring 1.1 cm on the exam of 09/24/2017. There is mild background pulmonary emphysema is centrilobular with scattered blebs. Linear groundglas s opacity in the left upper lobe on image 31 is seen in a subpleural location with extent to the pleu ral surface. The previously seen left basilar opacity has resolved in the interim. Left basilar pleur al parenchymal scarring is seen. There are 3 punctate possible 2 mm nodules present on image 38 in th e left lower lobe. These may have been obscured by the small left pleural effusion and atelectasis on the prior or may have not be seen given slice selection. There is a stable 2 mm nodule in the superi or segment of the left lower lobe on image 32. Trace left pleural effusion has decreased in the interim. No right-sided pleural effusion. There is a new soft tissue attenuated nodule density posterior to the inferior vena cava and right lateral to t he esophagus lung algorithm image 52 and soft tissue algorithm. This could be pulmonary in origin and represent a new nodule or more likely posterior mediastinal and represent adenopathy. This measures up to 9 mm. MEDIASTINUM: There are no greater than 1 cm hilar or mediastinal lymph nodes. No pericardial effusi on is seen. LIVER/GB: Numerous hepatic metastatic lesions are seen with the largest currently measuring approxima tely 4.4 x 5.0 cm, unchanged from the prior. Overall metastatic hepatic burden appears similar to the prior. Necrotic portal adenopathy is present. PANCREAS: There is pancreatic ductal prominence with no focal mass identified. SPLEEN: No significant abnormality is seen. ADRENALS: Heterogenous right adrenal gland metastatic lesion measures up to 4.3 x 2.9 cm, also simila r to the prior. The approximately 8.2 cm left adrenal gland heterogenous masses also similar to the p rior. KIDNEYS: Nonobstructing left lower pole calculus measures 3 mm. BOWEL: No large or small bowel dilatation. LYMPH NODES: Adenopathy is difficult to evaluate given the mesenteric congestion, anasarca, and pauci ty of intra-abdominal fat with opposing bowel loops. Portal adenopathy is redemonstrated similar to the prior. OSSEOUS STRUCTURES: There is redemonstration of diffuse blastic osseous skeletal metastasis involving the entirety of the visualized axial skeleton with reactive pleural thickening adjacent to the rib m etastasis. Degree appears overall similar from the prior of 09/24/2017. OTHER: The inferior vena cava is slitlike below the adrenal gland, which can be seen in hypovolemia. There is diffuse anasarca and mesenteric venous congestion. IMPRESSION: 1. Stable right upper lobe spiculated pulmonary neoplasm with stable burden and size of the multifoca l hepatic metastasis. 3. Few subcentimeter left pulmonary nodules that may have been obscured by atelectasis on the prior e xam or may have not been seen given slice selection. Surveillance is recommended for these. 3. Diminutive caliber of the inferior vena cava which can indicate hypovolemia. 4. Overall unchanged size and morphology of the large bilateral adrenal gland metastasis, diffuse apoorva stic skeletal metastasis and portal adenopathy
== END | disposition home or self-care (01) ==
LOC: RADCTMAIN 12:23
PROVIDERS: ATTEND Internal Medicine Hematology & Oncology
DX: C34.11 Malignant neoplasm of upper lobe, right bronchus or lung (principal); C78.7 Secondary malignant neoplasm of liver and intrahepatic bile duct; C79.51 Secondary malignant neoplasm of bone; C79.72 Secondary malignant neoplasm of left adrenal gland; C79.71 Secondary malignant neoplasm of right adrenal gland; R59.0 Localized enlarged lymph nodes; R91.8 Other nonspecific abnormal finding of lung field; Z88.0 Allergy status to penicillin
CPT/HCPCS: 82565; 84520; 71260; 74177; 36415; Q9967

== ENCOUNTER 2017-12-21 17:01 | Inpatient (IN) | payer OTHER ==
[2017-12-21] MEDS ORDERED: HYDROmorphone 1 MG/ML 1 ML SYRINGE IVP STA ×2 (17:20→20:01)
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
[2017-12-21] MEDS: SODIUM CHLORIDE 0.9% 1,000 ML IV SCH (17:49)
[2017-12-21 18:08] LABS: Anisocytosis Slight; Basophils % (A) 0 %; Eosinophils # (A) 1.4 k/uL (0-0.7); Eosinophils % (A) 14 %; HCT 45.4 % (39.0-53.0); HGB 14.3 gm/dL (13.0-17.5); Hypochromasia Moderate; Lymphocytes # (A) 0.4 k/uL (1.0-4.8); Lymphocytes % (A) 4 %; MCH 28.4 pg (25.0-35.0); MCHC 31.4 g/dL (31.0-37.0); MCV 90.6 fL (80.0-100.0); Monocytes # (A) 0.3 k/uL (0-1.0); Monocytes % (A) 3 %; Neutrophils # (A) 7.4 k/uL (1.3-7.7); Neutrophils % (A) 76 %; Platelet Count 282 k/uL (150-450); RBC 5.02 m/uL (4.30-5.90); RDW 16.9 % (11.5-15.5); WBC 9.7 k/uL (3.8-10.6)
[2017-12-21 18:20] LABS: ALT 50 U/L (21-72); AST 50 U/L (17-59); Albumin 3.1 g/dL (3.5-5.0); Alkaline Phosphatase 357 U/L (38-126); Anion Gap 7 mmol/L; Blood Urea Nitrogen 20 mg/dL (9-20); Carbon Dioxide 25 mmol/L (22-30); Chloride 107 mmol/L (98-107); Glucose 90 mg/dL (74-99); Potassium 5.7 mmol/L (3.5-5.1); Sodium 139 mmol/L (137-145); Total Bilirubin 0.5 mg/dL (0.2-1.3); Total Protein 6.7 g/dL (6.3-8.2)
[2017-12-21] MEDS ORDERED: predniSONE 20 MG TAB PO STA ×2 (20:00→20:18)
--- NOTE | 2017-12-21 20:07 | XR ---
EXAMINATION: XR chest 2V DATE AND TIME: 12/21/2017 6:15 PM CLINICAL INDICATION: Pain; history stage IV lung carcinoma TECHNIQUE: PA and lateral COMPARISON: 09/23/2017 FINDINGS: The skeletal structures show multifocal sclerotic lesions consistent with osteoblastic metastases. The lungs appear to be clear, as seen. The pleural spaces are negative. The cardiac silhouette is not enlarged. Thoracic aorta ectasia redemonstrated, stable.The extrathorac ic soft tissues are negative for acute findings. IMPRESSION: 1. NO ACUTE PULMONARY PLEURAL PROCESS. 2. OSTEOBLASTIC METASTASES.
[2017-12-21] MEDS ORDERED: NALOXONE 0.4 MG/ML 1 ML VIAL IV PRN (20:11)
[2017-12-21] MEDS ORDERED: ONDANSETRON 4 MG/2 ML VIAL IVP PRN (20:11)
[2017-12-22] MEDS: HYDROmorphone 2 MG TAB PO PRN ×2 (00:38→05:21)
[2017-12-22 09:40] VITALS: BMI 15.3
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
[2017-12-22] MEDS ORDERED: PROMETHAZ-COD 6.25-10 MG/5 ML 5 ML CUP PO PRN (10:16)
[2017-12-22] MEDS: MORPHINE SULFATE 4 MG/ML SYRINGE IVP PRN ×3 (11:27→20:53)
--- NOTE | 2017-12-22 12:02 | XR ---
EXAMINATION TYPE: XR ribs LT DATE OF EXAM: 12/22/2017 COMPARISON: 12/03/2017 CT abdomen pelvis. HISTORY: Known lung cancer. Left rib pain. Cough. TECHNIQUE: Frontal and lateral views of the left ribs were obtained. FINDINGS: Overall the osseous structures appear to have mottled appearance of the bone marrow. Specif ically there appears to be sclerotic foci within the sixth through ninth left ribs laterally and thir d through fifth ribs posteriorly as well as 11th rib posteriorly. No acute displaced pathologic fract ure is seen. Sclerosis is noted at the anterior margin of rib 1 on the left. The known vertebral osse ous metastasis is poorly visualized given the submitted views. IMPRESSION: Multifocal left rib osseous metastasis no pathologic fracture.
[2017-12-22] MEDS: HEPARIN SODIUM,PORCINE 5,000 UNIT/ML 1 ML VIAL SQ SCH ×2 (12:08→20:54)
[2017-12-22] MEDS: SODIUM CHLORIDE 0.9% 1,000 ML IV SCH ×2 (12:09→22:49)
[2017-12-22] MEDS: predniSONE 20 MG TAB PO SCH (13:32)
[2017-12-22] MEDS: FAMOTIDINE 20 MG/2 ML VIAL IV SCH (20:54)
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
[2017-12-22] MEDS: ARTIFICIAL TEARS-HYPROMELLOSE DROPS 15 ML BTL LEFT EYE SCH (22:49)
[2017-12-22] MEDS: MAG HYDROX/AL HYDROX/SIMETH 30 ML, LIDOCAINE VISCOUS 30 ML, diphenhydrAMINE ELIXIR 75 M... PO SCH ×4 (23:01)
--- NOTE | 2017-12-23 00:37 | CT ---
EXAM: CT Head Without Intravenous Contrast CLINICAL HISTORY: ITS.REASON CT Reason: Left Facial paralysis TECHNIQUE: Axial computed tomography images of the head/brain without intravenous contrast. CTDI is 60.30 mGy and DLP is 1090.40 mGy-cm. This CT exam was performed using one or more of the following dose reduction techniques: automated exposure control, adjustment of the mA and/or kV according to patient size, and/or use of iterative reconstruction technique. COMPARISON: CT head dated 07/07/2016. FINDINGS: Brain: No evidence of acute intracranial hemorrhage. Mild patchy foci of low attenuation within the supratentorial white matter and deep elizalde nuclei are grossly unchanged compared with the prior exam. 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 No mass effect or herniation. Ventricles: Unremarkable. No ventriculomegaly. Bones/joints: No acute fracture. Soft tissues: Unremarkable. Sinuses: Unremarkable as visualized. Mastoid air cells: Unremarkable as visualized. IMPRESSION: 1. No evidence of acute intracranial hemorrhage. 2. Mild patchy foci of low attenuation within the supratentorial white matter and deep elizalde nuclei are grossly unchanged compared with the prior exam. These likely represent [id number] small vessel ischemic disease. 3. 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
[2017-12-23] MEDS: MORPHINE SULFATE 4 MG/ML SYRINGE IVP PRN ×2 (03:32→09:23)
[2017-12-23] MEDS: ARTIFICIAL TEARS-HYPROMELLOSE DROPS 15 ML BTL LEFT EYE SCH ×6 (03:34→21:44)
[2017-12-23] MEDS: HYDROmorphone 2 MG TAB PO PRN (06:17)
[2017-12-23 07:35] LABS: Anion Gap 7 mmol/L; Blood Urea Nitrogen 22 mg/dL (9-20); Calcium 8.6 mg/dL (8.4-10.2); Carbon Dioxide 22 mmol/L (22-30); Chloride 109 mmol/L (98-107); Glucose 117 mg/dL (74-99); Sodium 138 mmol/L (137-145)
[2017-12-23] MEDS: HEPARIN SODIUM,PORCINE 5,000 UNIT/ML 1 ML VIAL SQ SCH ×2 (09:20→21:43)
[2017-12-23] MEDS: FAMOTIDINE 20 MG/2 ML VIAL IV SCH ×2 (09:20→21:43)
[2017-12-23] MEDS: predniSONE 20 MG TAB PO SCH (09:21)
[2017-12-23] MEDS: MAG HYDROX/AL HYDROX/SIMETH 30 ML, LIDOCAINE VISCOUS 30 ML, diphenhydrAMINE ELIXIR 75 M... PO SCH ×12 (10:20→21:44)
[2017-12-23] MEDS: SODIUM CHLORIDE 0.9% 1,000 ML IV SCH ×3 (10:38→22:20)
--- NOTE | 2017-12-23 11:19 | P.PN ---
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 COPD, fibromyalgia, hypertension, cervicitis, he follows up with Dr. Simpson. History of intractable persistent abdominal and back pain.Moderate protein calorie malnutrition. Patient follow-up with Dr. Gustafson office. He presents this time because of upper respiratory tract infection with runny nose, sneezing and coughing with white phlegm for the last 3-4 days. Associated with left side nonspecific abdominal pain radiating to the lower chest about 8-9/10 in severity whenever he coughs. Patient also over the last 3 days noticed division of the face was the right side with difficulty in swallowing. However he denies headache. No specific weakness or abnormal sensation in the limbs. Patient states his back pain is chronic and is controlled with pain pills. 12/23/2017 Patient left side chest pain mostly related to his metastatic disease as been shown on the repair x-ray. As well as his worsening coughing which is much controlled with medicine. His chest pain is easing down with his upper respiratory symptoms are improving as well. Is a little bit dyspneic. And his chest pain is 7/10 in severity. He still have left Villar's palsy with right facial deviation. However he is able to eat with no difficulties and no choking. He prefers to stop smoking and continue with Dilaudid. Continue with Percocet. He knew on by mouth steroids and IV fluids. Lower fluids to 50 mL per hour. Neurology evaluation is appreciated.brain CT: No evidence of acute hemorrhage. On exam patient has new nodules at the right jaw angle for about 2 months. Objective - Vital Signs Vital signs: Vital Signs Temp 98.2 F 12/23/17 04:41 Pulse 97 12/23/17 04:41 Resp 16 12/23/17 04:41 BP 119/72 12/23/17 04:41 Pulse Ox 97 12/23/17 04:41 Intake & Output 12/22/17 12/23/17 12/23/17 18:59 06:59 18:59 Intake Total 800 650 Output Total 200 Balance 800 450 Weight 48.534 kg Intake: Intake, IV Titration 600 650 Amount Sodium Chloride 0.9% 1, 600 650 000 ml @ 75 mls/hr IV . [id number] [facility] Rx#:[id number] Oral 200 Output: Urine 200 Other: Voiding Method Urinal Toilet Urinal # Voids 1 - Labs CBC & Chem 7: 12/21/17 17:46 12/23/17 06:51 Labs: Abnormal Lab Results - Last 24 Hours (Table) 12/23/17 Range/Units 06:51 Chloride 109 H (98-107) mmol/L BUN 22 H (9-20) mg/dL Creatinine 0.57 L (0.66-1.25) mg/dL Glucose 117 H (74-99) mg/dL Assessment and Plan Assessment: Upper respiratory tract infection, mostly viral Left-sided abdominal pain. Mostly related to cough. Continue with symptomatic treatment Acute left facial palsy, call neurologist for evaluation Swallowing difficulty stage IV non-small lung cancer with liver and bone metastases status post radiation and chemotherapy and as per patient and his getting immunotherapy currently. COPD fibromyalgia Essential hypertension History of intractable persistent abdominal and back pain Direct protein calorie malnutrition Plan: This is a pleasant 62 years old male with metastatic lung cancer and upper respiratory tract infection with left facial palsy . Continue with pain management oncology team consult. Continue with IV fluids. Continue with steroids. We'll call neurology consult. Also we'll check for influenza. Keep the patient nothing by mouth I will do a swallow evaluation with speech and swallow consult. continue with anti-tussive therapy Labs and medication were resumed. Continue same treatment. Continue with symptomatic treatment. Resume home medication. Monitor lytes and vitals. DVT and GI prophylaxis. Further recommendationsof the clinical course of the patient DVT prophylaxis: Subcutaneous heparin GI Prophylaxis: Pepcid PT/OT: Pending Prognosis is guarded
[2017-12-23] MEDS: oxyCODONE-APAP 10-325MG 1 EACH TAB PO PRN ×2 (13:49→20:14)
--- NOTE | 2017-12-23 20:47 | P.PN ---
Subjective Progress Note Date: 12/23/17 Principal diagnosis: URI and COugh and Pain Pain is a little better, although he states he does not like the morphine as he feels other medications work better. but overall his upper respi symptoms improving and therefore pain appears better controlled, and no underlying pathological fracture noted on Chest Xray. Objective - Vital Signs Vital signs: Vital Signs Temp 96.9 F L 12/23/17 16:40 Pulse 100 12/23/17 16:40 Resp 16 12/23/17 16:40 BP 150/78 12/23/17 16:40 Pulse Ox 97 12/23/17 16:40 Intake & Output 12/23/17 12/23/17 12/24/17 06:59 18:59 06:59 Intake Total 650 400 Output Total 200 Balance 450 400 Intake: Intake, IV Titration 650 400 Amount Sodium Chloride 0.9% 1, 650 400 000 ml @ 50 mls/hr IV . Q20H [facility] Rx#:[id number] Output: Urine 200 Other: Voiding Method Toilet Urinal # Voids 1 - Exam Constitutional General appearance: no acute distress - EENT Eyes: EOMI, PERRLA ENT: hearing grossly normal, normal oropharynx - Neck Neck: lymphadenopathy (1-1.5 cm rt post mandibular) - Respiratory Respiratory: bilateral: CTA - Cardiovascular Rhythm: regular Heart sounds: normal: S1, S2 - Gastrointestinal General gastrointestinal: normal bowel sounds, soft - Integumentary Integumentary: normal - Neurologic Neurologic: CNII-XII intact - Musculoskeletal Musculoskeletal: generalized weakness, strength equal bilaterally - Psychiatric Psychiatric: A&O x's 3, appropriate affect - Labs CBC & Chem 7: 12/21/17 17:46 12/23/17 06:51 Labs: Abnormal Lab Results - Last 24 Hours (Table) 12/23/17 Range/Units 06:51 Chloride 109 H (98-107) mmol/L BUN 22 H (9-20) mg/dL Creatinine 0.57 L (0.66-1.25) mg/dL Glucose 117 H (74-99) mg/dL Assessment and Plan Plan: Assessment and Plan (1) Chest pain Narrative/Plan: - No pathological fx identified on xray, pain is improving as URI improve - If pain persists or worsen, consider repeating CT Current Visit: No Status: Acute Code(s): R07.9 - CHEST PAIN, UNSPECIFIED SNOMED Code(s): 14629561 (2) Cough Narrative/Plan: This is likely due to URTI/post nasal drip per his history. Recent diagnostics this admission did not show a pneumonia or cancer progression in the lung. - Continue on Prednisone and Phenergan with Codeine. Monitor closely. If cough worsens, with any evidence of bacterial superinfection, consider antibiotic Current Visit: Yes Status: Acute Code(s): R05 - COUGH SNOMED Code(s): 06564686 (3) Pain due to malignant neoplasm metastatic to bone Narrative/Plan: This is controlled well with Percocet at baseline. - Appears as underlying cough is resoving the pain is too, possible switch to home regimen with percocet tomorrow or next 24-48 hours Current Visit: Yes Status: Acute Priority: High Code(s): G89.3 - NEOPLASM RELATED PAIN (ACUTE) (CHRONIC); C79.51 - SECONDARY MALIGNANT NEOPLASM OF BONE SNOMED Code(s): 465872982 (4) Metastatic lung cancer (metastasis from lung to other site) Narrative/Plan: Continue to monitor. Resume chemo as outpt once acute condition is resolved. CT scans from 12/02/17 showed stable disease Current Visit: Yes Status: Acute Priority: High Code(s): C34.90 - MALIGNANT NEOPLASM OF UNSP PART OF UNSP BRONCHUS OR LUNG SNOMED Code(s): 60481553
[2017-12-24] MEDS: ARTIFICIAL TEARS-HYPROMELLOSE DROPS 15 ML BTL LEFT EYE SCH ×6 (01:20→22:15)
[2017-12-24] MEDS: HYDROmorphone 2 MG TAB PO PRN ×2 (01:20→05:54)
[2017-12-24] MEDS: oxyCODONE-APAP 10-325MG 1 EACH TAB PO PRN ×4 (03:06→18:22)
[2017-12-24] MEDS ORDERED: HYDROmorphone 1 MG/ML 1 ML SYRINGE IVP STA (08:11)
[2017-12-24] MEDS: SODIUM CHLORIDE 0.9% 1,000 ML IV SCH (08:30)
[2017-12-24] MEDS: MAG HYDROX/AL HYDROX/SIMETH 30 ML, LIDOCAINE VISCOUS 30 ML, diphenhydrAMINE ELIXIR 75 M... PO SCH ×12 (08:31→22:16)
[2017-12-24] MEDS: FAMOTIDINE 20 MG/2 ML VIAL IV SCH (08:32)
[2017-12-24] MEDS: HEPARIN SODIUM,PORCINE 5,000 UNIT/ML 1 ML VIAL SQ SCH ×2 (08:32→20:10)
[2017-12-24] MEDS: predniSONE 20 MG TAB PO SCH (08:33)
[2017-12-24 08:45] LABS: Anion Gap 8 mmol/L; Blood Urea Nitrogen 20 mg/dL (9-20); Carbon Dioxide 24 mmol/L (22-30); Chloride 104 mmol/L (98-107); Glucose 76 mg/dL (74-99); Potassium 4.8 mmol/L (3.5-5.1); Sodium 136 mmol/L (137-145)
--- NOTE | 2017-12-24 11:13 | P.PN ---
Subjective Progress Note Date: 12/24/17 Principal diagnosis: URI and COugh and Pain Pain is a little better, dilaudid has helped but he wants to go back on percocet , will start to convert back to PO Objective - Vital Signs Vital signs: Vital Signs Temp 98.1 F 12/24/17 04:56 Pulse 103 H 12/24/17 04:56 Resp 16 12/24/17 04:56 BP 150/84 12/24/17 04:56 Pulse Ox 98 12/24/17 04:56 Intake & Output 12/23/17 12/24/17 12/24/17 18:59 06:59 18:59 Intake Total 400 1080 Output Total 850 Balance 400 230 Intake: Intake, IV Titration 400 600 Amount Sodium Chloride 0.9% 1, 400 600 000 ml @ 50 mls/hr IV . Q20H [facility] Rx#:[id number] Oral 480 Output: Urine 850 Other: Voiding Method Toilet Urinal # Voids 2 - Exam Constitutional General appearance: no acute distress, chronic ill appearing, thin - EENT Eyes: EOMI, PERRLA ENT: hearing grossly normal, normal oropharynx - Neck Neck: lymphadenopathy (1-1.5 cm rt post mandibular) - Respiratory Respiratory: bilateral: CTA - Cardiovascular Rhythm: regular Heart sounds: normal: S1, S2 - Gastrointestinal General gastrointestinal: normal bowel sounds, soft - Integumentary Integumentary: normal - Neurologic Neurologic: CNII-XII intact - Musculoskeletal Musculoskeletal: generalized weakness, strength equal bilaterally - Psychiatric Psychiatric: A&O x's 3, appropriate affect - Labs CBC & Chem 7: 12/21/17 17:46 12/24/17 08:00 Labs: Abnormal Lab Results - Last 24 Hours (Table) 12/24/17 Range/Units 08:00 Sodium 136 L (137-145) mmol/L Creatinine 0.57 L (0.66-1.25) mg/dL Assessment and Plan Plan: Assessment and Plan (1) Chest pain Narrative/Plan: - No pathological fx identified on xray, pain is improving as URI improve - If pain persists or worsen, consider repeating CT Current Visit: No Status: Acute Code(s): R07.9 - CHEST PAIN, UNSPECIFIED SNOMED Code(s): 03155891 (2) Cough Narrative/Plan: - Improved since admission Current Visit: Yes Status: Acute Code(s): R05 - COUGH SNOMED Code(s): 72563078 (3) Pain due to malignant neoplasm metastatic to bone Narrative/Plan: This is controlled well with Percocet at baseline. - Appears as underlying cough is resoving the pain is too, possible switch to home regimen with percocet tomorrow or next 24-48 hours Current Visit: Yes Status: Acute Priority: High Code(s): G89.3 - NEOPLASM RELATED PAIN (ACUTE) (CHRONIC); C79.51 - SECONDARY MALIGNANT NEOPLASM OF BONE SNOMED Code(s): 349473702 (4) Metastatic lung cancer (metastasis from lung to other site) Narrative/Plan: Continue to monitor. Resume chemo as outpt once acute condition is resolved. CT scans from 12/02/17 showed stable disease Current Visit: Yes Status: Acute Priority: High Code(s): C34.90 - MALIGNANT NEOPLASM OF UNSP PART OF UNSP BRONCHUS OR LUNG SNOMED Code(s): 79088992 Plan: - Will follow-up after discharge, per primary team - Continue to monitor blood count - Agree with converting back to his home pain regimen percocet, bowel regimen
--- NOTE | 2017-12-24 13:19 | P.PN ---
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 COPD, fibromyalgia, hypertension, cervicitis, he follows up with Dr. Simpson. History of intractable persistent abdominal and back pain.Moderate protein calorie malnutrition. Patient follow-up with Dr. Gustafson office. He presents this time because of upper respiratory tract infection with runny nose, sneezing and coughing with white phlegm for the last 3-4 days. Associated with left side nonspecific abdominal pain radiating to the lower chest about 8-9/10 in severity whenever he coughs. Patient also over the last 3 days noticed division of the face was the right side with difficulty in swallowing. However he denies headache. No specific weakness or abnormal sensation in the limbs. Patient states his back pain is chronic and is controlled with pain pills. 12/23/2017 Patient left side chest pain mostly related to his metastatic disease as been shown on the repair x-ray. As well as his worsening coughing which is much controlled with medicine. His chest pain is easing down with his upper respiratory symptoms are improving as well. Is a little bit dyspneic. And his chest pain is 7/10 in severity. He still have left Villar's palsy with right facial deviation. However he is able to eat with no difficulties and no choking. He prefers to stop smoking and continue with Dilaudid. Continue with Percocet. He knew on by mouth steroids and IV fluids. Lower fluids to 50 mL per hour. Neurology evaluation is appreciated.brain CT: No evidence of acute hemorrhage. On exam patient has new nodules at the right jaw angle for about 2 months. 12/24/2017 Patient was placed on oral opioid analgesic yesterday however they could not control the pain patient received Dilaudid this morning through the venous rout. He still have some mild cough and phlegm, better controlled with antitussive medicine. Patient has left Villar's palsy oncology team are following the patient. Prognosis is extremely poor. Objective - Vital Signs Vital signs: Vital Signs Temp 98.2 F 12/24/17 12:45 Pulse 97 12/24/17 12:45 Resp 17 12/24/17 12:45 BP 143/88 12/24/17 12:45 Pulse Ox 96 12/24/17 12:45 Intake & Output 12/23/17 12/24/17 12/24/17 18:59 06:59 18:59 Intake Total 400 1080 Output Total 850 Balance 400 230 Weight 48.534 kg Intake: Intake, IV Titration 400 600 Amount Sodium Chloride 0.9% 1, 400 600 000 ml @ 50 mls/hr IV . Q20H [facility] Rx#:[id number] Oral 480 Output: Urine 850 Other: Voiding Method Toilet Toilet Urinal Urinal # Voids 2 - Exam GENERAL: The patient is alert and oriented x3, not in any acute distress. Well developed, well nourished. HEENT: Pupils are round and equally reacting to light. EOMI. No scleral icterus. No conjunctival pallor. Normocephalic, atraumatic. No pharyngeal erythema. No thyromegaly. CARDIOVASCULAR: S1 and S2 present. No murmurs, rubs, or gallops. -PULMONARY: Chest is clear to auscultation, no wheezing or crackles. left lower chest tenderness ABDOMEN: Soft, no tenderness, mainly with cupping. nondistended, normoactive bowel sounds. No palpable organomegaly. MUSCULOSKELETAL: No joint swelling or deformity. EXTREMITIES: No cyanosis, clubbing, or pedal edema. NEUROLOGICAL: Gross neurological examination did not reveal any focal deficits. SKIN: No rashes. - Labs CBC & Chem 7: 12/21/17 17:46 12/24/17 08:00 Labs: Abnormal Lab Results - Last 24 Hours (Table) 12/24/17 Range/Units 08:00 Sodium 136 L (137-145) mmol/L Creatinine 0.57 L (0.66-1.25) mg/dL Assessment and Plan Assessment: Upper respiratory tract infection, mostly viral Left-sided abdominal pain. Mostly related to cough. Continue with symptomatic treatment Acute left facial palsy, call neurologist for evaluation Swallowing difficulty stage IV non-small lung cancer with liver and bone metastases status post radiation and chemotherapy and as per patient and his getting immunotherapy currently. COPD fibromyalgia Essential hypertension History of intractable persistent abdominal and back pain Direct protein calorie malnutrition Plan: This is a pleasant 62 years old male with metastatic lung cancer and upper respiratory tract infection with left facial palsy . Continue with pain management oncology team consult. Continue with IV fluids. Continue with steroids. We'll call neurology consult. Also we'll check for influenza. Keep the patient nothing by mouth I will do a swallow evaluation with speech and swallow consult. continue with anti-tussive therapy Labs and medication were resumed. Continue same treatment. Continue with symptomatic treatment. Resume home medication. Monitor lytes and vitals. DVT and GI prophylaxis. Further recommendationsof the clinical course of the patient DVT prophylaxis: Subcutaneous heparin GI Prophylaxis: Pepcid PT/OT: Pending Prognosis is guarded
[2017-12-24] MEDS: FAMOTIDINE 20 MG TAB PO SCH (20:10)
[2017-12-24 22:50] VITALS: RESP 16
[2017-12-25] MEDS: oxyCODONE-APAP 10-325MG 1 EACH TAB PO PRN ×5 (00:01→16:51)
[2017-12-25] MEDS: ARTIFICIAL TEARS-HYPROMELLOSE DROPS 15 ML BTL LEFT EYE SCH ×4 (02:18→12:49)
[2017-12-25 07:59] LABS: Anion Gap 9 mmol/L; Blood Urea Nitrogen 18 mg/dL (9-20); Carbon Dioxide 26 mmol/L (22-30); Chloride 101 mmol/L (98-107); Glucose 81 mg/dL (74-99); Potassium 4.5 mmol/L (3.5-5.1); Sodium 136 mmol/L (137-145)
[2017-12-25] MEDS: FAMOTIDINE 20 MG TAB PO SCH (08:53)
[2017-12-25] MEDS: predniSONE 20 MG TAB PO SCH (08:53)
[2017-12-25] MEDS: HEPARIN SODIUM,PORCINE 5,000 UNIT/ML 1 ML VIAL SQ SCH (08:54)
[2017-12-25] MEDS: MAG HYDROX/AL HYDROX/SIMETH 30 ML, LIDOCAINE VISCOUS 30 ML, diphenhydrAMINE ELIXIR 75 M... PO SCH ×8 (08:54→16:54)
[2017-12-25 12:07] VITALS: BP 163/79; PULSE 103; TEMP 98.2
[2017-12-25] MEDS: SODIUM CHLORIDE 0.9% 1,000 ML IV SCH (12:50)
== END 2017-12-25 17:13 | disposition home or self-care (01) | DRG 948 ==
LOC: EC 17:01 → 3NMEDONC 20:11
PROVIDERS: ADMIT Hospitalist; ATTEND Hospitalist
DX: G89.3 Neoplasm related pain (acute) (chronic) (principal); C34.90 Malignant neoplasm of unspecified part of unspecified bronchus or lung; C78.01 Secondary malignant neoplasm of right lung; C78.7 Secondary malignant neoplasm of liver and intrahepatic bile duct; C79.51 Secondary malignant neoplasm of bone; E44.0 Moderate protein-calorie malnutrition; F17.200 Nicotine dependence, unspecified, uncomplicated; G51.0 Bell's palsy; G62.9 Polyneuropathy, unspecified; I10 Essential (primary) hypertension; J06.9 Acute upper respiratory infection, unspecified; J44.9 Chronic obstructive pulmonary disease, unspecified; M79.7 Fibromyalgia; R13.10 Dysphagia, unspecified; Z92.21 Personal history of antineoplastic chemotherapy; Z92.3 Personal history of irradiation; Z79.899 Other long term (current) drug therapy; Z79.891 Long term (current) use of opiate analgesic; Z91.041 Radiographic dye allergy status; Z91.010 Allergy to peanuts
CPT/HCPCS: 36415; 70450; 71046; 80048; 80053; 84132; 85025; 87502; 96374; 96376; 99285

== ENCOUNTER 2018-01-20 15:59 | Inpatient (IN) | payer OTHER ==
[2018-01-20] MEDS ORDERED: ACETAMINOPHEN TAB 325 MG TAB PO STA (16:06)
[2018-01-20] MEDS ORDERED: IBUPROFEN 600 MG TAB PO STA (16:06)
[2018-01-20] MEDS ORDERED: cefTRIAXone 2,000 MG in SODIUM CHLORIDE 0.9% 100 ML IVPB STA (16:08)
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
[2018-01-20] MEDS: SODIUM CHLORIDE 0.9% 500 ML 500 ML IV SCH ×3 (16:30→17:10)
[2018-01-20 17:33] LABS: Anisocytosis Slight; Hypochromasia Slight; MCH 28.9 pg (25.0-35.0); MCHC 31.2 g/dL (31.0-37.0); MCV 92.5 fL (80.0-100.0); Platelet Count 645 k/uL (150-450); RDW 18.4 % (11.5-15.5)
[2018-01-20 17:38] LABS: HGB 7.8 gm/dL (13.0-17.5)
[2018-01-20 17:45] LABS: Albumin 2.1 g/dL (3.5-5.0); Calcium 7.5 mg/dL (8.4-10.2); Potassium 5.2 mmol/L (3.5-5.1); Total Bilirubin 0.9 mg/dL (0.2-1.3)
[2018-01-20 17:46] LABS: Creatine Kinase 147 U/L (55-170)
[2018-01-20] MEDS: DEXTROSE 50%-WATER 50 ML SYRINGE IVP STA (17:54)
[2018-01-20 17:59] LABS: Creatine Kinase MB 0.4 ng/mL (0.0-2.4); Troponin I <0.012 ng/mL (0.000-0.034)
[2018-01-20 18:01] LABS: Band Neutrophils % 7 %; Eosinophils # (M) 0.48 k/uL (0-0.7); Lymphocytes # (M) 0.58 k/uL (1.0-4.8); Metamyelocytes # (M) 0.05 k/uL (0); Metamyelocytes % 1 %; Monocytes # (M) 0.48 k/uL (0-1.0); Neutrophils % (M) 61 %; Nucleated Red Blood Cells 2 /100 WBC (0-0); Total Cells Counted 200; WBC 4.8 k/uL (3.8-10.6)
[2018-01-20 18:02] LABS: Poikilocytosis (M) Present; Polychromasia Present
[2018-01-20] MEDS ORDERED: SODIUM CHLORIDE 0.9% 1,000 ML IV STA (18:20)
--- NOTE | 2018-01-20 18:24 | CT ---
EXAMINATION TYPE: CT abdomen pelvis wo con DATE OF EXAM: 01/20/2018 COMPARISON: 12/03/2017 HISTORY: History of cancer. Weakness with fall. CT DLP: 282 mGycm Automated exposure control for dose reduction was used. TECHNIQUE: Helical acquisition of images was performed from the lung bases through the pelvis. FINDINGS: Exam is limited by the lack of any contrast. There is some patchy infiltrate and atelectasis at the l robert bases and more on the right side. Heart size is normal. There is heterogeneity throughout the blanca er consistent with metastatic disease. Spleen has normal size. There is a relative lack of intestinal gas. There appears to be multiple dilated small bowel loops with wall thickening. Small bowel measur es up to 3.3 cm. The wall thickness is 12 mm. There is no free air. There is increased density throug hout the abdomen suggestive of ascites. The kidneys show no definite hydronephrosis. There is a 5 mm calculus in the left kidney. Abdominal aorta is atheromatous. I see no retroperitoneal adenopathy. Th ere is generalized increased density of the subcutaneous tissues suggestive of anasarca. Bladder dist ends smoothly. There is no inguinal hernia. There is extensive osteoblastic change in the visualized bony structures consistent with metastatic d isease. I see no compression fracture. IMPRESSION: THERE IS NEW DIFFUSE SMALL BOWEL WALL THICKENING AND MILD DILATION. ASCITES. ANASARCA. HEPATIC METAST ATIC DISEASE. BASILAR PULMONARY INFILTRATES AND ATELECTASIS. ABNORMAL LUNG BASES AND SMALL BOWEL APPEARS NEW COMPARED TO OLD EXAM. ASCITES APPEARS NEW. Osteoblast ic disease unchanged.
[2018-01-20 18:27] LABS: Glucose,Whole Blood 174 mg/dL (75-99)
--- NOTE | 2018-01-20 18:38 | CT ---
EXAMINATION TYPE: CT brain wo con DATE OF EXAM: 01/20/2018 COMPARISON: 12/22/2017 HISTORY: History of cancer. Weakness with fall. CT DLP: 1036 mGycm Automated exposure control for dose reduction was used. FINDINGS: There is some cerebral cortical atrophy. There is cortical hypodensity in the right medial frontal lo be that measures 2 cm. There is similar focus in the right posterior frontal lobe. There is 1 cm high attenuation rounded focus with surrounding edema in the right temporal lobe consistent with small fo cus of metastatic disease. There is no midline shift. There is a similar second cortical focus left p osterior parietal lobe that measures 6 mm. IMPRESSION: THERE ARE 2 NODULAR FOCI IN THE RIGHT TEMPORAL LOBE AND RIGHT PARIETAL LOBE SUGGESTIVE OF METASTATIC DISEASE. THIS APPEARS NEW COMPARED TO OLD EXAM. CEREBRAL ATROPHY. OLD RIGHT FRONTAL SMALL CORTICAL IN FARCT.
[2018-01-20 18:41] LABS: INR 1.4 (<1.2); Partial Thromboplastin Time 28.6 sec (22.0-30.0); Prothrombin Time 13.3 sec (9.0-12.0)
--- NOTE | 2018-01-20 19:26 | XR ---
EXAMINATION TYPE: XR chest 2V DATE OF EXAM: 01/20/2018 COMPARISON: 12/21/2017 HISTORY: Weakness TECHNIQUE: Frontal and lateral views of the chest are obtained. FINDINGS: There is some patchy infiltrate in the right lower lobe. There are multiple areas osteoscl erosis. Heart size is normal. There are no hilar masses. There is blastic changes in the thoracic patricia tebral bodies. IMPRESSION: There is new right lower lobe pneumonia compared to old exam. Osteoblastic changes throughout the bony thorax. Normal heart.
[2018-01-20] MEDS ORDERED: SODIUM CHLORIDE 0.9% 1,000 ML IV ONE ×2 (19:59→22:25)
[2018-01-20] MEDS ORDERED: LEVOFLOXACIN 750MG-D5W PMX 750 MG in DEXTROSE/WATER 1 150ML.BAG IVPB STA (20:02)
[2018-01-20] MEDS ORDERED: VANCOMYCIN IV PER PHARMACY 1 EACH MISC MISCELLANE PRN (20:03)
[2018-01-20] MEDS ORDERED: SODIUM CHLORIDE 0.9% 500 ML 500 ML IV ONE (20:09)
[2018-01-20] MEDS ORDERED: VANCOMYCIN 1,000 MG in SODIUM CHLORIDE 0.9% 250 ML IVPB ONE (21:00)
[2018-01-20] MEDS ORDERED: LIDOCAINE URO-JET JELLY 2% 5 ML KIT URETHRAL ONE (23:00)
[2018-01-20 23:25] LABS: Appearance,Urine Cloudy (Clear); Bacteria,Urine Few /hpf; Bilirubin,Urine Negative (Negative); Blood,Urine Negative (Negative); Color,Urine Yellow; Glucose,Urine (UA) Negative (Negative); Ketones,Urine Negative (Negative); Leukocyte Esterase,Urine Negative (Negative); Mucus,Urine Occasional /hpf; Nitrite,Urine Negative (Negative); PH, Urine 5.5 (5.0-8.0); Protein,Urine 1+ (Negative); Specific Gravity,Urine 1.016 (1.001-1.035); WBC,Urine 3 /hpf (0-5)
[2018-01-20 23:35] LABS: Anisocytosis Slight; HCT 25.3 % (39.0-53.0); HGB 7.5 gm/dL (13.0-17.5); Hypochromasia Marked; MCHC 29.8 g/dL (31.0-37.0); MCV 93.9 fL (80.0-100.0); Mean Platelet Volume 6.8; Platelet Count 553 k/uL (150-450); RBC 2.69 m/uL (4.30-5.90); RDW 18.2 % (11.5-15.5); WBC 3.5 k/uL (3.8-10.6)
[2018-01-20 23:57] LABS: Neutrophils % (M) 4 %
[2018-01-21 00:02] LABS: Band Neutrophils % 53 %; Eosinophils # (M) 0.21 k/uL (0-0.7); Lymphocytes # (M) 0.32 k/uL (1.0-4.8); Metamyelocytes # (M) 0.56 k/uL (0); Metamyelocytes % 16 %; Monocytes # (M) 0.42 k/uL (0-1.0); Nucleated Red Blood Cells 0 /100 WBC (0-0); Total Cells Counted 200
[2018-01-21 00:04] LABS: Rouleaux Present; Toxic Granulation Present; Toxic Vacuolation Present
[2018-01-21] MEDS: DEXTROSE 50%-WATER 50 ML SYRINGE IVP STA ×3 (00:06→12:00)
[2018-01-21 00:36] LABS: Glucose,Whole Blood 103 mg/dL (75-99)
[2018-01-21] MEDS ORDERED: NALOXONE 0.4 MG/ML 1 ML VIAL IV PRN (00:53)
[2018-01-21] MEDS: NOREPINEPHRINE 4 MG in SODIUM CHLORIDE 0.9% 250 ML IV SCH ×2 (01:00→10:00)
[2018-01-21] MEDS ORDERED: SODIUM CHLORIDE 0.9% 1,000 ML IV SCH (01:00)
[2018-01-21 01:23] LABS: Glucose,Whole Blood 77 mg/dL (75-99)
[2018-01-21 03:01] LABS: Glucose,Whole Blood 46 mg/dL (75-99)
[2018-01-21 03:34] LABS: Glucose,Whole Blood 141 mg/dL (75-99)
[2018-01-21 06:13] LABS: Anisocytosis Slight; HCT 29.8 % (39.0-53.0); HGB 8.7 gm/dL (13.0-17.5); Hypochromasia Marked; MCH 28.2 pg (25.0-35.0); MCHC 29.2 g/dL (31.0-37.0); MCV 96.4 fL (80.0-100.0); Macrocytosis Slight; Mean Platelet Volume 6.7; Platelet Count 629 k/uL (150-450); RBC 3.09 m/uL (4.30-5.90); RDW 18.2 % (11.5-15.5); WBC 3.8 k/uL (3.8-10.6)
[2018-01-21 06:35] LABS: Calcium 7.1 mg/dL (8.4-10.2); Phosphorus 4.2 mg/dL (2.5-4.5); Potassium 5.9 mmol/L (3.5-5.1)
[2018-01-21 07:05] LABS: Glucose,Whole Blood 72 mg/dL (75-99)
--- NOTE | 2018-01-21 07:23 | XR ---
EXAMINATION TYPE: XR chest 1V portable DATE OF EXAM: 01/21/2018 CLINICAL HISTORY: Difficulty breathing progress study. TECHNIQUE: Single AP portable upright view of the chest is obtained. COMPARISON: Chest x-ray from one day earlier and older studies. FINDINGS: New pneumoperitoneum is suspected. Bibasilar opacity is present on current study. Upper dickson ngs are clear without pneumothorax. Cardiac silhouette size is stable and within normal limits. Scler otic osseous metastatic disease is redemonstrated. IMPRESSION: New pneumoperitoneum suspected. New left basilar atelectasis and/or infiltrate. Stable ri ght basilar atelectasis and/or infiltrate. Stable osseous metastatic disease. Critical results of pneumoperitoneum communicated to patient's ICU nurse William at time of dictation. A [place] level critical message alert has been initiated for Delbert Edwards via the [employer] Critical Results System on 01/21/2018 7:20 AM. This message alert has been sent to Delbert Edwards via the preferences provided by the clinician for the receipt of Radiology Critical Findings. Message ID [id number].
[2018-01-21 07:34] LABS: Band Neutrophils % 27 %; Eosinophils # (M) 0.11 k/uL (0-0.7); Lymphocytes # (M) 0.38 k/uL (1.0-4.8); Metamyelocytes % 21 %; Monocytes # (M) 0.38 k/uL (0-1.0); Neutrophils % (M) 29 %; Nucleated Red Blood Cells 0 /100 WBC (0-0); Total Cells Counted 100
[2018-01-21 07:35] LABS: Polychromasia Present; Toxic Granulation Present
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
[2018-01-21] MEDS: DEXTROSE 5%-0.9% NACL 1,000 ML IV SCH ×2 (08:41→18:15)
[2018-01-21] MEDS ORDERED: PANTOPRAZOLE 40 MG/10 ML VIAL IV SCH (09:00)
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
[2018-01-21] MEDS: PANTOPRAZOLE 40 MG/10 ML VIAL IV SCH ×2 (12:00→20:57)
[2018-01-21] MEDS: DEXAMETHASONE SOD PHOSPHATE 4 MG/ML 1 ML VIAL IV SCH ×2 (12:00→18:17)
[2018-01-21] MEDS ORDERED: VANCOMYCIN 1,000 MG in SODIUM CHLORIDE 0.9% 250 ML IVPB SCH (12:00)
[2018-01-21] MEDS: MIDODRINE 5 MG TAB PO SCH ×2 (12:01→18:17)
[2018-01-21 12:08] LABS: Glucose,Whole Blood 57 mg/dL (75-99)
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
[2018-01-21 14:09] LABS: Glucose,Whole Blood 115 mg/dL (75-99)
[2018-01-21 16:55] LABS: Hemoglobin A1C 4.9 % (4.0-6.0)
[2018-01-21 17:40] LABS: Glucose,Whole Blood 109 mg/dL (75-99)
[2018-01-21 20:39] LABS: Glucose,Whole Blood 116 mg/dL (75-99)
[2018-01-21] MEDS: MORPHINE SULFATE 4 MG/ML SYRINGE IVP PRN (20:54)
[2018-01-21] MEDS ORDERED: LEVOFLOXACIN 750MG-D5W PMX 750 MG in DEXTROSE/WATER 1 150ML.BAG IVPB SCH (21:00)
[2018-01-22] MEDS: DEXAMETHASONE SOD PHOSPHATE 4 MG/ML 1 ML VIAL IV SCH ×4 (00:27→17:47)
[2018-01-22] MEDS: MORPHINE SULFATE 4 MG/ML SYRINGE IVP PRN ×4 (00:28→09:30)
[2018-01-22] MEDS: DEXTROSE 5%-0.9% NACL 1,000 ML IV SCH ×3 (00:37→20:04)
[2018-01-22 04:34] LABS: Glucose,Whole Blood 109 mg/dL (75-99)
[2018-01-22 06:03] LABS: Anisocytosis Slight; HCT 28.9 % (39.0-53.0); HGB 8.6 gm/dL (13.0-17.5); Hypochromasia Marked; MCH 29.1 pg (25.0-35.0); MCHC 29.6 g/dL (31.0-37.0); MCV 98.2 fL (80.0-100.0); Macrocytosis Slight; Mean Platelet Volume 6.9; Platelet Count 646 k/uL (150-450); RBC 2.94 m/uL (4.30-5.90); RDW 18.3 % (11.5-15.5); WBC 5.2 k/uL (3.8-10.6)
[2018-01-22 06:19] LABS: Magnesium 2.1 mg/dL (1.6-2.3); Phosphorus 4.9 mg/dL (2.5-4.5)
[2018-01-22 06:27] LABS: Potassium 6.6 mmol/L (3.5-5.1)
[2018-01-22] MEDS: MIDODRINE 5 MG TAB PO SCH ×3 (06:33→17:47)
[2018-01-22] MEDS ORDERED: DEXTROSE 50%-WATER 50 ML SYRINGE IVP STA (07:00)
[2018-01-22] MEDS ORDERED: INSULIN REGULAR 100 UNIT/ML VIAL IV ONE (07:01)
--- NOTE | 2018-01-22 07:24 | XR ---
EXAMINATION TYPE: XR chest 1V portable DATE OF EXAM: 01/22/2018 HISTORY: Shortness of breath. COMPARISON: None. TECHNIQUE: Single view of the chest is submitted. FINDINGS: Pneumoperitoneum redemonstrated. Demonstrated are scattered senescent parenchymal change. There is stable left basilar patchy opacity. The heart is stable. Hilar and mediastinal structures are within normal limits. Degenerative changes are seen of the dorsal spine. IMPRESSION: 1. There is stable left basilar patchy opacity.
[2018-01-22 08:31] LABS: Lymphocytes # (M) 0.16 k/uL (1.0-4.8); Monocytes # (M) 0.47 k/uL (0-1.0); Nucleated Red Blood Cells 0 /100 WBC (0-0)
[2018-01-22 08:35] LABS: Band Neutrophils % 70 %; Eosinophils # (M) 0.05 k/uL (0-0.7); Neutrophils % (M) 18 %; Total Cells Counted 200
[2018-01-22 08:36] LABS: Toxic Granulation Present; Toxic Vacuolation Present
[2018-01-22 08:38] LABS: Polychromasia Present
[2018-01-22] MEDS: PANTOPRAZOLE 40 MG/10 ML VIAL IV SCH ×2 (09:39→20:04)
--- NOTE | 2018-01-22 10:03 | P.PN ---
Subjective Progress Note Date: 01/22/18 Principal diagnosis: Metastatic non-small cell lung cancer, carcinoma, stage IV with liver, bone and brain metastasis, acute kidney injury, hypotension, dehydration, abdominal pain This is a 62-year-old [place] patient of Dr. Sosa, who presented to the emergency department on 01/20/2018 for evaluation of lethargy, weakness, shortness of breath, cough and abdominal pain. 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 He is under the care of Dr. Simpson from medical oncology, he also sees Dr. Betts the pulmonary clinic for his lung cancer and underlying COPD. Most recent CAT scan on 09/24/2017 had evidence of disease progression with some enlargement in the liver masses, and no significant changes in the osseous metastasis. He also has adrenal lesions. Patient had significant weight loss of around 30 pounds in the last 2 months. Very frail and cachectic. Patient had a fall at home getting out of bed, he hit his forehead on the ground, but did not lose consciousness, however did sustain a hematoma on his forehead. CT brain was completed and showed 2 nodular foci in the right temporal lobe and right parietal lobe suggestive of metastatic disease. This was compared to an old CT brain from 12/22/2017 and this is a new finding. She of abdomen and pelvis showed new diffuse small bowel wall thickening and mild dilation, ascites, anasarca, hepatic metastatic disease, basilar pulmonary infiltrates and atelectasis. Chest x-ray showed new right lower lobe pneumonia and blastic changes in the thoracic vertebral bodies. Lab work the emergency department revealed FVC of 3.5, hemoglobin is 7.5, platelet count of 553, was 138, potassium is 5.2, chloride is 110, CO2 is 21, BUN of 30, creatinine is 1.26, glucose was 43, plasma lactic acid was 5.6, alkaline phosphatase was 737, AST was 66, ALT was 46, troponin was negative 1, urinalysis showed a few bacteria, negative leuks, neg white blood cell count. Patient did have a low-grade fever on presentation, with a temp of 100.9F, blood intensive with a blood pressure 68/44, cardiac with a rate of 108 BPM and tachypneic. He was fluid resuscitated, he was given a total of 4 L of 0.9 normal saline and IV boluses, however his subsequent lactic acid actually increased, and this morning it is at 6.3. Started on empiric antibiotics currently on Levaquin and vancomycin. He was noted to be anemic, and his occult was positive. Patient also noted increasing nontender hard lump on his right mandible by his right earlobe. Blood and urine cultures were collected and sent, nothing at this time. Is on vasopressor support, currently at 14 mics per minute. On 01/22/2018 patient seen in follow-up in intensive care unit, mildly short of breath, but his biggest source of discomfort if his abdominal pain. Patient is receiving morphine 3 mg every 3 hours, and this does not seem to be controlling his pain. Patient has diffuse discomfort throughout the abdomen, with most tenderness in the right upper quadrant, epigastric region. Today's chest x-ray has been reviewed by Dr. Edwards, showed pneumoperitoneum, and stable left basilar patchy opacity. GI consult was obtained, and the treatment is medical, patient is a poor candidate for EGD or colonoscopy. Prognosis is poor. Yesterday we spoke to the patient and his family, and decision was made to make patient DO NOT RESUSCITATE. Today's lab work has been reviewed, shows W BC of 5.2, hemoglobin of 8.6, sodium is 139, potassium is 6.6, and this was treated with the amp of D50, and regular insulin, we'll recheck in 4 hours, chloride is 1:15, CO2 13, BUN is 41 and creatinine is 1.4. Patient is awake and alert, is extremely weak and cachectic. He is complaining of back pain as well. Currently on 49 have liters of oxygen per nasal cannula, IVs D5 0.9 at a rate of 100 ML per hour. Urine and blood cultures are pending. Afebrile. Objective - Vital Signs Vital signs: Vital Signs Temp 97.9 F 01/22/18 08:00 Pulse 102 H 01/22/18 09:30 Resp 17 01/22/18 09:30 BP 94/62 01/22/18 09:30 Pulse Ox 96 01/22/18 09:30 Intake & Output 01/21/18 01/22/18 01/22/18 18:59 06:59 18:59 Intake Total 1868.75 1100 300 Output Total 295 235 35 Balance 1573.75 865 265 Weight 58.1 kg Intake: IV 1450 1100 300 Dextrose 5%-0.9% NaCl 1, 1200 1100 300 000 ml @ 100 mls/hr IV . Q10H [facility] Rx#:[id number] Vancomycin 1,000 mg In 250 Sodium Chloride 0.9% 250 ml @ 125 mls/hr IVPB ONCE ONE Rx#:[id number] Intake, IV Titration 418.75 Amount Norepinephrine 4 mg In 418.75 Sodium Chloride 0.9% 250 ml @ Titrate IV .Q0M [facility] Rx#:[id number] Output: Urine 295 235 35 Other: Voiding Method Indwelling Catheter Indwelling Catheter - Exam GENERAL EXAM: Alert, pleasant, frail, cachectic, 62-year-old -[place] female, who appears much older than stated age, in no apparent distress. Significant muscle wasting noted. HEAD: Normocephalic/atraumatic. There is a nontender hard lump by his right mandible near the earlobe EYES: Normal reaction of pupils, equal size. Conjunctiva pink, sclera white. NOSE: Clear with pink turbinates. THROAT: No erythema or exudates. NECK: No masses, no JVD, no thyroid enlargement, no adenopathy. CHEST: No chest wall deformity. Symmetrical expansion. LUNGS: Equal air entry with no crackles, wheeze, rhonchi or dullness. Dimibished breath sounds bilaterally CVS: Regular rate and rhythm, normal S1 and S2, no gallops, no murmurs, no rubs ABDOMEN: Diffuse abdominal tenderness, abdomen is distended, no rigidity or guarding EXTREMITIES: No clubbing, no edema, no cyanosis, 2+ pulses and upper and lower extremities. MUSCULOSKELETAL: Muscle strength and tone normal. SPINE: No scoliosis or deformity SKIN: No rashes CENTRAL NERVOUS SYSTEM: Alert and oriented -3. No focal deficits, tone is normal in all 4 extremities. PSYCHIATRIC: Alert and oriented -3. Appropriate affect. Intact judgment and insight. - Labs CBC & Chem 7: 01/22/18 05:45 01/22/18 05:45 Labs: Abnormal Lab Results - Last 24 Hours (Table) 01/21/18 01/21/18 01/21/18 Range/Units 10:35 11:57 13:57 RBC (4.30-5.90) m/uL Hgb (13.0-17.5) gm/dL Hct (39.0-53.0) % MCHC (31.0-37.0) g/dL RDW (11.5-15.5) % Plt Count (150-450) k/uL Lymphocytes # (Manual) (1.0-4.8) k/uL Potassium (3.5-5.1) mmol/L Chloride (98-107) mmol/L Carbon Dioxide (22-30) mmol/L BUN (9-20) mg/dL Creatinine (0.66-1.25) mg/dL Glucose (74-99) mg/dL POC Glucose (mg/dL) 57 L 115 H (75-99) mg/dL Plasma Lactic Acid Navdeep 6.5 H* (0.7-2.0) mmol/L Calcium (8.4-10.2) mg/dL Phosphorus (2.5-4.5) mg/dL 01/21/18 01/21/18 01/22/18 Range/Units 17:25 20:28 04:23 RBC (4.30-5.90) m/uL Hgb (13.0-17.5) gm/dL Hct (39.0-53.0) % MCHC (31.0-37.0) g/dL RDW (11.5-15.5) % Plt Count (150-450) k/uL Lymphocytes # (Manual) (1.0-4.8) k/uL Potassium (3.5-5.1) mmol/L Chloride (98-107) mmol/L Carbon Dioxide (22-30) mmol/L BUN (9-20) mg/dL Creatinine (0.66-1.25) mg/dL Glucose (74-99) mg/dL POC Glucose (mg/dL) 109 H 116 H 109 H (75-99) mg/dL Plasma Lactic Acid Navdeep (0.7-2.0) mmol/L Calcium (8.4-10.2) mg/dL Phosphorus (2.5-4.5) mg/dL 01/22/18 01/22/18 Range/Units 05:45 05:45 RBC 2.94 L (4.30-5.90) m/uL Hgb 8.6 L (13.0-17.5) gm/dL Hct 28.9 L (39.0-53.0) % MCHC 29.6 L (31.0-37.0) g/dL RDW 18.3 H (11.5-15.5) % Plt Count 646 H (150-450) k/uL Lymphocytes # (Manual) 0.16 L (1.0-4.8) k/uL Potassium 6.6 H* (3.5-5.1) mmol/L Chloride 115 H (98-107) mmol/L Carbon Dioxide 13 L (22-30) mmol/L BUN 41 H (9-20) mg/dL Creatinine 1.40 H (0.66-1.25) mg/dL Glucose 109 H (74-99) mg/dL POC Glucose (mg/dL) (75-99) mg/dL Plasma Lactic Acid Navdeep (0.7-2.0) mmol/L Calcium 7.0 L (8.4-10.2) mg/dL Phosphorus 4.9 H (2.5-4.5) mg/dL Microbiology - Last 24 Hours (Table) 01/20/18 16:50 Blood Culture - Preliminary Blood No Growth after 24 hours 01/20/18 22:59 Urine Culture - Preliminary Urine,Catheterized Assessment and Plan Plan: Assessment: #1. Hypotension, dehydration, weakness, falls, lactic acidosis, rule out sepsis. Patient has been adequately fluid resuscitated, and currently off vasopressor support, cultures are pending. #2. Blood loss anemia, occult stool positive #3. Pneumoperitoneum, pneumoperitoneum, abdominal distention #4. Acute kidney injury #5. Anion gap metabolic acidosis related to lactic acidoses #6. Left basilar opacity/or infiltrate, cannot rule out underlying pneumonia #7. Non-small cell lung cancer, adenocarcinoma, stage IV with liver and bone metastasis and CT brain showed 2 areas concerning for metastatic disease that are new, status post radiation therapy, completing systemic chemotherapy for palliative purposes. Patient is on immunotherapy #8. Chronic obstructive lung disease #9. Current smoker #10. Chronic anemia #11. Abnormal weight loss, cachexia #12. Hypertension #13. Osteoarthritis #14. History of intractable persistent abdominal and back pain Plan: Continue with empiric antibiotic coverage, patient is afebrile, cultures are negative thus far. He is having diffuse abdominal pain, distention, chest x- ray from yesterday and today, showed pneumoperitoneum, GI consultation was obtained and noted. Patient is a poor surgical candidate, not a candidate for EGD or colonoscopy at this time. Patient states his pain control is inadequate , we'll place the patient on morphine drip. The prognosis is extremely poor, and at this time we recommend proceeding with comfort care and hospice involvement. We addressed that again with patient's family today, stated the patient would probably be too much to handle for them at home, his care is complicated. We'll have the [facility] come in to speak to the patient and family today. I performed a history & physical examination of the patient and discussed their management with my nurse practitioner, Nena Perez. I reviewed the nurse practitioner's note and agree with the documented findings and plan of care. Lung sounds are diminished. The findings and the impression was discussed with the patient. I attest to the documentation by the nurse practitioner. Time with Patient: Greater than 30
[2018-01-22] MEDS: MORPHINE SULFATE (100 MG/2 ML) 100 MG in SODIUM CHLORIDE 0.9% 100 ML IV SCH (11:40)
[2018-01-22 11:56] VITALS: BMI 18.3
[2018-01-22 12:01] LABS: Glucose,Whole Blood 128 mg/dL (75-99)
[2018-01-22 13:13] LABS: Calcium 6.8 mg/dL (8.4-10.2); Potassium 5.8 mmol/L (3.5-5.1)
--- NOTE | 2018-01-22 13:16 | P.PN ---
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 Patient has multiple other electrolyte abnormalities including lactic acidosis acute renal failure and severe dehydration. Patient denied any cough, denied any dysuria patient is hypotensive is on IV fluids and also requiring pressor support and presently on 12 g of Levophed. Lactic acid is around 6.5 although there is no evidence of infection appears to be severe dehydration. Patient has on and off nausea vomiting as well as diarrhea. Urine is not impressive for any urinary tract infection, there is a mild acute infiltrate in the left is of the lung because of which patient is being can you done antibiotic although there is no clear- cut evidence of pneumonia at this time. At extensive discussion with the patient patient is presently DO NOT RESUSCITATE. Before me, assistant curator discuss with the patient as well regarding hospice patient is leaning towards hospice overall prognosis is externally poor with adenocarcinoma of the lung with metastatic lesions to the brain patient is started on Decadron. Oncology was consulted and we will get their opinion regarding his overall prognosis regarding his lung cancer. Jan 22 2018 No overnight events patient's serum potassium has gone up again today. Patient and family are agreeable and hospice. [facility] hospice is evaluating the patient. Objective - Vital Signs Vital signs: Vital Signs Temp 97.9 F 01/22/18 08:00 Pulse 111 H 01/22/18 12:00 Resp 33 H 01/22/18 12:00 BP 95/68 01/22/18 12:00 Pulse Ox 93 L 01/22/18 12:00 Intake & Output 01/21/18 01/22/18 01/22/18 18:59 06:59 18:59 Intake Total 1868.75 1100 600 Output Total 295 235 45 Balance 1573.75 865 555 Weight 58.1 kg 58.1 kg Intake: IV 1450 1100 600 Dextrose 5%-0.9% NaCl 1, 1200 1100 600 000 ml @ 100 mls/hr IV . Q10H [facility] Rx#:[id number] Vancomycin 1,000 mg In 250 Sodium Chloride 0.9% 250 ml @ 125 mls/hr IVPB ONCE ONE Rx#:[id number] Intake, IV Titration 418.75 Amount Norepinephrine 4 mg In 418.75 Sodium Chloride 0.9% 250 ml @ Titrate IV .Q0M [facility] Rx#:[id number] Output: Urine 295 235 45 Other: Voiding Method Indwelling Catheter Indwelling Catheter - Exam PHYSICAL EXAMINATION: GENERAL: The patient is alert and oriented x3, not in any acute distress. Thin built HEENT: Pupils are round and equally reacting to light. EOMI. No scleral icterus. No conjunctival pallor. Normocephalic, atraumatic. No pharyngeal erythema. No thyromegaly. CARDIOVASCULAR: S1 and S2 present. No murmurs, rubs, or gallops. PULMONARY: Chest is clear to auscultation, no wheezing or crackles. ABDOMEN: Soft, nontender, nondistended, normoactive bowel sounds. No palpable organomegaly. MUSCULOSKELETAL: No joint swelling or deformity. EXTREMITIES: No cyanosis, clubbing, or pedal edema. NEUROLOGICAL: No change compared to yesterday and his neurological status SKIN: No rashes. - Labs CBC & Chem 7: 01/22/18 05:45 01/22/18 05:45 Labs: Abnormal Lab Results - Last 24 Hours (Table) 01/21/18 01/21/18 01/21/18 Range/Units 13:57 17:25 20:28 RBC (4.30-5.90) m/uL Hgb (13.0-17.5) gm/dL Hct (39.0-53.0) % MCHC (31.0-37.0) g/dL RDW (11.5-15.5) % Plt Count (150-450) k/uL Lymphocytes # (Manual) (1.0-4.8) k/uL Potassium (3.5-5.1) mmol/L Chloride (98-107) mmol/L Carbon Dioxide (22-30) mmol/L BUN (9-20) mg/dL Creatinine (0.66-1.25) mg/dL Glucose (74-99) mg/dL POC Glucose (mg/dL) 115 H 109 H 116 H (75-99) mg/dL Calcium (8.4-10.2) mg/dL Phosphorus (2.5-4.5) mg/dL 01/22/18 01/22/18 01/22/18 Range/Units 04:23 05:45 05:45 RBC 2.94 L (4.30-5.90) m/uL Hgb 8.6 L (13.0-17.5) gm/dL Hct 28.9 L (39.0-53.0) % MCHC 29.6 L (31.0-37.0) g/dL RDW 18.3 H (11.5-15.5) % Plt Count 646 H (150-450) k/uL Lymphocytes # (Manual) 0.16 L (1.0-4.8) k/uL Potassium 6.6 H* (3.5-5.1) mmol/L Chloride 115 H (98-107) mmol/L Carbon Dioxide 13 L (22-30) mmol/L BUN 41 H (9-20) mg/dL Creatinine 1.40 H (0.66-1.25) mg/dL Glucose 109 H (74-99) mg/dL POC Glucose (mg/dL) 109 H (75-99) mg/dL Calcium 7.0 L (8.4-10.2) mg/dL Phosphorus 4.9 H (2.5-4.5) mg/dL 01/22/18 Range/Units 11:49 RBC (4.30-5.90) m/uL Hgb (13.0-17.5) gm/dL Hct (39.0-53.0) % MCHC (31.0-37.0) g/dL RDW (11.5-15.5) % Plt Count (150-450) k/uL Lymphocytes # (Manual) (1.0-4.8) k/uL Potassium (3.5-5.1) mmol/L Chloride (98-107) mmol/L Carbon Dioxide (22-30) mmol/L BUN (9-20) mg/dL Creatinine (0.66-1.25) mg/dL Glucose (74-99) mg/dL POC Glucose (mg/dL) 128 H (75-99) mg/dL Calcium (8.4-10.2) mg/dL Phosphorus (2.5-4.5) mg/dL Microbiology - Last 24 Hours (Table) 01/20/18 16:50 Blood Culture - Preliminary Blood No Growth after 24 hours Assessment and Plan Plan: -Weakness and bilateral lower extremities: I believe it's secondary to cancer and cancer cachexia itself along with dehydration and lactic acidosis contributing to that rather than the metastatic lesions -Metastatic lung cancer: Patient overall prognosis appears to be poor oncology, hospice services is evaluating the patient for possible placement to hospice -Lactic acidosis: Secondary to severe intravascular volume depletion -Hypovolemic shock requiring levo fed which will be -Non-small cell, adenocarcinoma stage IV metastatic lung cancer -COPD without any acute exacerbation -Chronic anemia I do not believe patient has an acute blood loss anemia and this time -Abnormal weight loss secondary to cancer -Hyperkalemia: There is hemolysis This is not being addressed at this time as patient will be hospice later in the day today -Acute renal failure: Secondary to severe intravascular volume depletion -Tachycardia secondary to intravascular depletion and hypovolemic shock Hospice services is evaluated in the patient. Depending on their evaluation patient will be the discharge to hospice facility or will be inpatient hospice
--- NOTE | 2018-01-22 15:20 | CDI ---
Last Revision, January 2017 Documentation Clarification Form Date: 01/22/2018 3:03:54 PM From: Fany Truong RN, CCDS Admit Date: 01/20/2018 7:59:00 PM Patient Name: Gavin Rice Visit Number: [id number] ATTENTION: The Clinical Documentation Specialists (CDI) and [facility] Coding Staff appreciate your assistance in clarifying documentation. Please respond to the clarification below the line at the bottom and electronically sign. The CDI & [facility] Coding staff will review the response and follow-up if needed. Please note: Queries are made part of the Legal Health Record. If you have any questions, please contact the author of this message via ITS. Ananth Rivero MD Cachexia is documented in the H&P and progress notes and requires further specificity. History/Risk Factors: Smoker, adenocarcinoma of lung s/p chemo, mets to brain & bone, cerebral palsy, dehydration, nausea, vomiting, diarrhea Clinical Indicators: 01/21 H&P and Progress Notes:"Weakness and bilateral lower extremities: I believe it's secondary to cancer and cancer Cachexia itself along with dehydration and lactic acidosis contributing to that rather than the metastatic lesions anyways patient was started on Decadron. Abnormal weight loss, Cachexia. " 01/21 Pulmonary Consult: "Very frail and cachectic." Labs: Albumin/ Total Protein: 2.1/5 Current BMI: 18.4 Insufficient energy intake: pt is in for weakness and lethargy Loss of muscle mass: per nursing assessment, patient is weak and shaky, strength is poor, pt is nonweighbearing and moderately fatigues with activity. Treatment: Dietary Consult: Completed 01/22 1152 Supplements/TPN: none prescribed as pt is made comfort care Lab monitoring: Am daily In your professional opinion, can you please clarify if these findings signify one of the following conditions? Mild Protein-Calorie Malnutrition Moderate Protein-Calorie Malnutrition Severe Protein-Calorie Malnutrition Other condition, please specify Unable to determine Please continue to document in your progress notes and discharge summary in order to capture severity of illness and risk of mortality. Include clinical findings that support your diagnosis. Mild Protein-Calorie Malnutrition MTDD
[2018-01-22] MEDS ORDERED: LEVOFLOXACIN 750MG-D5W PMX 750 MG in DEXTROSE/WATER 1 150ML.BAG IVPB SCH (20:00)
[2018-01-22] MEDS: NOREPINEPHRINE 4 MG in SODIUM CHLORIDE 0.9% 250 ML IV SCH (22:01)
[2018-01-22 22:43] LABS: Glucose,Whole Blood 135 mg/dL (75-99)
[2018-01-22] MEDS ORDERED: SODIUM CHLORIDE 0.9% 1,000 ML IV ONE (23:20)
[2018-01-23] MEDS: DEXAMETHASONE SOD PHOSPHATE 4 MG/ML 1 ML VIAL IV SCH ×3 (00:07→12:31)
[2018-01-23 00:19] VITALS: TEMP 97.4
[2018-01-23 00:37] LABS: Glucose,Whole Blood 132 mg/dL (75-99)
[2018-01-23] MEDS ORDERED: SODIUM CHLORIDE 0.9% 1,000 ML IV ONE (01:06)
[2018-01-23] MEDS ORDERED: ONDANSETRON 4 MG/2 ML VIAL IVP PRN (01:30)
[2018-01-23] MEDS: MORPHINE SULFATE (100 MG/2 ML) 100 MG in SODIUM CHLORIDE 0.9% 100 ML IV SCH (04:29)
[2018-01-23] MEDS: DEXTROSE 5%-0.9% NACL 1,000 ML IV SCH (05:20)
[2018-01-23 05:47] LABS: Glucose,Whole Blood 145 mg/dL (75-99)
[2018-01-23 06:36] LABS: Anisocytosis Slight; HCT 29.7 % (39.0-53.0); HGB 8.4 gm/dL (13.0-17.5); Hypochromasia Marked; MCH 27.8 pg (25.0-35.0); MCHC 28.4 g/dL (31.0-37.0); MCV 97.9 fL (80.0-100.0); Macrocytosis Slight; Mean Platelet Volume 8.3; Platelet Count 506 k/uL (150-450); RBC 3.04 m/uL (4.30-5.90); RDW 18.3 % (11.5-15.5); WBC 11.7 k/uL (3.8-10.6)
[2018-01-23 07:09] LABS: Calcium 6.3 mg/dL (8.4-10.2)
[2018-01-23 07:12] LABS: Phosphorus 6.7 mg/dL (2.5-4.5); Potassium 7.7 mmol/L (3.5-5.1)
--- NOTE | 2018-01-23 08:39 | XR ---
EXAMINATION TYPE: XR chest 1V portable DATE OF EXAM: 01/23/2018 COMPARISON: 01/22/2018 HISTORY: Shortness of breath TECHNIQUE: Single frontal view of the chest is obtained. FINDINGS: There are new multifocal opacities within the right midlung and left perihilar region with worsening opacity at the lung bases and worsening of the blunting of the costophrenic angles. Right upper lobe spiculated pulmonary neoplasm is poorly defined on chest radiograph Cardiac silhouette is partially obscured but appears upper limits of normal. Osseous structures are grossly intact. IMPRESSION: No new multifocal patchy opacities and increasing pleural effusions with increasing biba silar airspace disease. Findings are suspicious for pneumonia superimposed on this patient's known dickson ng cancer.
[2018-01-23 08:49] LABS: Calcium 6.5 mg/dL (8.4-10.2)
[2018-01-23 08:56] LABS: Potassium 7.8 mmol/L (3.5-5.1)
[2018-01-23] MEDS: MIDODRINE 5 MG TAB PO SCH ×2 (09:28→12:31)
[2018-01-23] MEDS: PANTOPRAZOLE 40 MG/10 ML VIAL IV SCH (09:33)
--- NOTE | 2018-01-23 10:33 | P.PN ---
Subjective Progress Note Date: 01/23/18 Principal diagnosis: Metastatic non-small cell lung cancer, carcinoma, stage IV with liver, bone and brain metastasis, acute kidney injury, hypotension, dehydration, abdominal pain This is a 62-year-old [place]ian Slovenian patient of Dr. Sosa, who presented to the emergency department on 01/20/2018 for evaluation of lethargy, weakness, shortness of breath, cough and abdominal pain. 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 He is under the care of Dr. Simpson from medical oncology, he also sees Dr. Betts the pulmonary clinic for his lung cancer and underlying COPD. Most recent CAT scan on 09/24/2017 had evidence of disease progression with some enlargement in the liver masses, and no significant changes in the osseous metastasis. He also has adrenal lesions. Patient had significant weight loss of around 30 pounds in the last 2 months. Very frail and cachectic. Patient had a fall at home getting out of bed, he hit his forehead on the ground, but did not lose consciousness, however did sustain a hematoma on his forehead. CT brain was completed and showed 2 nodular foci in the right temporal lobe and right parietal lobe suggestive of metastatic disease. This was compared to an old CT brain from 12/22/2017 and this is a new finding. She of abdomen and pelvis showed new diffuse small bowel wall thickening and mild dilation, ascites, anasarca, hepatic metastatic disease, basilar pulmonary infiltrates and atelectasis. Chest x-ray showed new right lower lobe pneumonia and blastic changes in the thoracic vertebral bodies. Lab work the emergency department revealed FVC of 3.5, hemoglobin is 7.5, platelet count of 553, was 138, potassium is 5.2, chloride is 110, CO2 is 21, BUN of 30, creatinine is 1.26, glucose was 43, plasma lactic acid was 5.6, alkaline phosphatase was 737, AST was 66, ALT was 46, troponin was negative 1, urinalysis showed a few bacteria, negative leuks, neg white blood cell count. Patient did have a low-grade fever on presentation, with a temp of 100.9F, blood intensive with a blood pressure 68/44, cardiac with a rate of 108 BPM and tachypneic. He was fluid resuscitated, he was given a total of 4 L of 0.9 normal saline and IV boluses, however his subsequent lactic acid actually increased, and this morning it is at 6.3. Started on empiric antibiotics currently on Levaquin and vancomycin. He was noted to be anemic, and his occult was positive. Patient also noted increasing nontender hard lump on his right mandible by his right earlobe. Blood and urine cultures were collected and sent, nothing at this time. Is on vasopressor support, currently at 14 mics per minute. On 01/22/2018 patient seen in follow-up in intensive care unit, mildly short of breath, but his biggest source of discomfort if his abdominal pain. Patient is receiving morphine 3 mg every 3 hours, and this does not seem to be controlling his pain. Patient has diffuse discomfort throughout the abdomen, with most tenderness in the right upper quadrant, epigastric region. Today's chest x-ray has been reviewed by Dr. Edwards, showed pneumoperitoneum, and stable left basilar patchy opacity. GI consult was obtained, and the treatment is medical, patient is a poor candidate for EGD or colonoscopy. Prognosis is poor. Yesterday we spoke to the patient and his family, and decision was made to make patient DO NOT RESUSCITATE. Today's lab work has been reviewed, shows W BC of 5.2, hemoglobin of 8.6, sodium is 139, potassium is 6.6, and this was treated with the amp of D50, and regular insulin, we'll recheck in 4 hours, chloride is 1:15, CO2 13, BUN is 41 and creatinine is 1.4. Patient is awake and alert, is extremely weak and cachectic. He is complaining of back pain as well. Currently on 49 have liters of oxygen per nasal cannula, IVs D5 0.9 at a rate of 100 ML per hour. Urine and blood cultures are pending. Afebrile. On 01/23/2018 patient seen in follow-up in the intensive care unit. Patient had significantly deteriorated overnight, currently he is unresponsive, his respirations have noted to be changed, with Kussmaul respirations. Family at the bedside, and they had made a decision to transfer the patient home today. Hospice was notified, however unfortunately patient likely not be able to be transferred home is at this point he is in active stages of dying. Patient is on norepinephrine currently at 6 mics per minute, D5.9 normal saline at a rate of 100 ML. He is on oxygen at 4 to half liters per nasal cannula, his labs have been reviewed, and showed sodium of 141, potassium 7.8, chloride is 118, CO2 is 12, BUN of 12 and creatinine 2.13. Objective - Vital Signs Vital signs: Vital Signs Temp 97.4 F L 01/23/18 04:00 Pulse 93 01/23/18 09:00 Resp 8 L 01/23/18 09:00 BP 89/50 01/23/18 09:00 Pulse Ox 99 01/23/18 09:00 Intake & Output 01/22/18 01/23/18 01/23/18 18:59 06:59 18:59 Intake Total 1200 3493.850 354.688 Output Total 80 58 0 Balance 1120 3435.850 354.688 Weight 58.1 kg 91.2 kg Intake: IV 1200 3370 330 Dextrose 5%-0.9% NaCl 1, 1200 1200 300 000 ml @ 100 mls/hr IV . Q10H [facility] Rx#:[id number] Levofloxacin 750Mg-D5w 150 Pmx 750 mg In Dextrose/ Water 1 150ml.bag @ 100 mls/hr IVPB Q48H [facility] Rx#: [id number] Sodium Chloride 0.9% 20 30 Sodium Chloride 0.9% 1, 2000 000 ml @ 999 mls/hr IV . Q1H1M [facility] Rx#:[id number] Intake, IV Titration 123.850 24.688 Amount Morphine Sulfate (100 mg/ 87.975 2 ml) 100 mg In Sodium Chloride 0.9% 100 ml @ 5 MG/HR 5.1 mls/hr IV .Q20H [facility] Rx#:[id number] Norepinephrine 4 mg In 35.875 24.688 Sodium Chloride 0.9% 250 ml @ Titrate IV .Q0M [facility] Rx#:[id number] Output: Urine 80 58 0 Other: Voiding Method Indwelling Catheter Indwelling Catheter - Exam GENERAL EXAM: Unresponsive, frail, cachectic, 62-year-old -[place] female, who appears much older than stated age, Significant muscle wasting noted. Patient's creatinine of 4-1/2 L per nasal cannula, patient has Kussmaul respirations HEAD: Normocephalic/atraumatic. There is a nontender hard lump by his right mandible near the earlobe EYES: Normal reaction of pupils, equal size. Conjunctiva pink, sclera white. NOSE: Clear with pink turbinates. THROAT: No erythema or exudates. NECK: No masses, no JVD, no thyroid enlargement, no adenopathy. CHEST: No chest wall deformity. Symmetrical expansion. LUNGS: Equal air entry with no crackles, wheeze, rhonchi or dullness. Dimibished breath sounds bilaterally CVS: Regular rate and rhythm, normal S1 and S2, no gallops, no murmurs, no rubs ABDOMEN: abdomen is distended, no rigidity or guarding EXTREMITIES: No clubbing, no edema, no cyanosis, 2+ pulses and upper and lower extremities. MUSCULOSKELETAL: Muscle strength and tone normal. SPINE: No scoliosis or deformity SKIN: No rashes CENTRAL NERVOUS SYSTEM: Unresponsive, with Kussmaul respirations - Labs CBC & Chem 7: 01/23/18 05:41 01/23/18 07:52 Labs: Abnormal Lab Results - Last 24 Hours (Table) 01/22/18 01/22/18 01/22/18 Range/Units 11:49 12:47 22:31 WBC (3.8-10.6) k/uL RBC (4.30-5.90) m/uL Hgb (13.0-17.5) gm/dL Hct (39.0-53.0) % MCHC (31.0-37.0) g/dL RDW (11.5-15.5) % Plt Count (150-450) k/uL Potassium 5.8 H (3.5-5.1) mmol/L Chloride 115 H (98-107) mmol/L Carbon Dioxide 12 L (22-30) mmol/L BUN 43 H (9-20) mg/dL Creatinine 1.65 H (0.66-1.25) mg/dL Glucose (74-99) mg/dL POC Glucose (mg/dL) 128 H 135 H (75-99) mg/dL Calcium 6.8 L (8.4-10.2) mg/dL Phosphorus (2.5-4.5) mg/dL 01/23/18 01/23/18 01/23/18 Range/Units 00:26 05:36 05:41 WBC 11.7 H (3.8-10.6) k/uL RBC 3.04 L (4.30-5.90) m/uL Hgb 8.4 L (13.0-17.5) gm/dL Hct 29.7 L (39.0-53.0) % MCHC 28.4 L (31.0-37.0) g/dL RDW 18.3 H (11.5-15.5) % Plt Count 506 H (150-450) k/uL Potassium (3.5-5.1) mmol/L Chloride (98-107) mmol/L Carbon Dioxide (22-30) mmol/L BUN (9-20) mg/dL Creatinine (0.66-1.25) mg/dL Glucose (74-99) mg/dL POC Glucose (mg/dL) 132 H 145 H (75-99) mg/dL Calcium (8.4-10.2) mg/dL Phosphorus (2.5-4.5) mg/dL 01/23/18 01/23/18 Range/Units 05:41 07:52 WBC (3.8-10.6) k/uL RBC (4.30-5.90) m/uL Hgb (13.0-17.5) gm/dL Hct (39.0-53.0) % MCHC (31.0-37.0) g/dL RDW (11.5-15.5) % Plt Count (150-450) k/uL Potassium 7.7 H* 7.8 H* (3.5-5.1) mmol/L Chloride 118 H 118 H (98-107) mmol/L Carbon Dioxide 11 L 12 L (22-30) mmol/L BUN 51 H 52 H (9-20) mg/dL Creatinine 2.06 H 2.13 H (0.66-1.25) mg/dL Glucose 127 H 136 H (74-99) mg/dL POC Glucose (mg/dL) (75-99) mg/dL Calcium 6.3 L* 6.5 L (8.4-10.2) mg/dL Phosphorus 6.7 H (2.5-4.5) mg/dL Microbiology - Last 24 Hours (Table) 01/20/18 16:50 Blood Culture - Preliminary Blood No Growth after 48 hours 11/28/18 22:59 Urine Culture - Final Urine,Catheterized Assessment and Plan Plan: Assessment: #1. Hypotension, dehydration, weakness, falls, lactic acidosis, rule out sepsis. Patient has been adequately fluid resuscitated, and currently off vasopressor support, cultures are negative. #2. Blood loss anemia, occult stool positive #3. Pneumoperitoneum, pneumoperitoneum, abdominal distention #4. Acute kidney injury #5. Anion gap metabolic acidosis related to lactic acidoses #6. Left basilar opacity/or infiltrate, cannot rule out underlying pneumonia #7. Non-small cell lung cancer, adenocarcinoma, stage IV with liver and bone metastasis and CT brain showed 2 areas concerning for metastatic disease that are new, status post radiation therapy, completing systemic chemotherapy for palliative purposes. Patient is on immunotherapy #8. Chronic obstructive lung disease #9. Current smoker #10. Chronic anemia #11. Abnormal weight loss, cachexia #12. Hypertension #13. Osteoarthritis #14. History of intractable persistent abdominal and back pain Plan: At this point patient had significant deterioration in his clinical status, he is unresponsive, small respirations, hypotensive. Patient is DO NOT RESUSCITATE CODE STATUS. Patient's family is at the bedside, they're requesting a transfer home, however unfortunately patient at this point is in active stages of dying, and will not be able to transfer home unfortunately. Continue with comfort care measures only, morphine drip for comfort, we will stop all other IV fluids and medications. I performed a history & physical examination of the patient and discussed their management with my nurse practitioner, Nena Perez. I reviewed the nurse practitioner's note and agree with the documented findings and plan of care. Lung sounds are diminished. The findings and the impression was discussed with the patient. I attest to the documentation by the nurse practitioner. Time with Patient: Greater than 30
[2018-01-23 11:08] VITALS: BP 87/52; PULSE 92; RESP 9
[2018-01-23] MEDS ORDERED: SCOPOLAMINE 1.5MG/72HR PATCH TRANSDERM STA (11:15)
[2018-01-23 13:13] LABS: Band Neutrophils % 33 %; Lymphocytes # (M) 0.35 k/uL (1.0-4.8); Metamyelocytes # (M) 0.47 k/uL (0); Metamyelocytes % 4 %; Monocytes # (M) 1.17 k/uL (0-1.0); Myelocytes # (M) 0.12 k/uL (0); Myelocytes % 1 %; Neutrophils % (M) 52 %; Nucleated Red Blood Cells 0 /100 WBC (0-0); Total Cells Counted 200
[2018-01-23 13:51] LABS: Crenated RBC Present; Poikilocytosis (M) Present; Polychromasia Present; RBC Fragments Present; Toxic Granulation Present; Toxic Vacuolation Present
[2018-01-23 15:03] LABS: Glucose,Whole Blood 35 mg/dL (75-99)
[2018-01-23 15:03] LABS: Glucose,Whole Blood 46 mg/dL (75-99)
--- NOTE | 2018-01-23 18:01 | P.DS ---
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 Please refer to my progress note for further details Plan - Discharge Summary Discharge Rx Participant: Yes New Discharge Prescriptions: No Action RX: Folic Acid 1 mg PO DAILY RX: Albuterol Inhaler [Ventolin Hfa Inhaler] 1 - 2 puff INHALATION RT-Q6H PRN PRN Reason: Shortness Of Breath RX: Ondansetron HCl [Zofran] 4 mg PO Q4H PRN PRN Reason: Nausea RX: Acetaminophen [Tylenol] 500 mg PO Q6HR PRN PRN Reason: Pain RX: amLODIPine [Norvasc] 5 mg PO DAILY RX: Polyethylene Glycol 3350 [Miralax] 17 gm PO DAILY PRN #30 powd.pack PRN Reason: Constipation RX: Sennosides [Senna] 8.6 mg PO DAILY PRN #30 tablet PRN Reason: Constipation RX: Meloxicam [Mobic] 7.5 mg PO BID RX: Albuterol Nebulized [Ventolin Nebulized] 3 ml INHALATION RT-Q6H PRN PRN Reason: Shortness Of Breath RX: oxyCODONE-APAP 10-325MG [Percocet 10-325 mg] 1 tab PO Q4H PRN PRN Reason: Pain Discharge Medication List RX: Albuterol Inhaler [Ventolin Hfa Inhaler] 1 - 2 puff INHALATION RT-Q6H PRN [History] RX: Folic Acid 1 mg PO DAILY 02/05/17 [History] RX: Ondansetron HCl [Zofran] 4 mg PO Q4H PRN 02/05/17 [History] RX: Acetaminophen [Tylenol] 500 mg PO Q6HR PRN 08/14/17 [History] RX: amLODIPine [Norvasc] 5 mg PO DAILY 09/23/17 [History] RX: Polyethylene Glycol 3350 [Miralax] 17 gm PO DAILY PRN #30 powd.pack [Rx] RX: Sennosides [Senna] 8.6 mg PO DAILY PRN #30 tablet 09/25/17 [Rx] RX: Albuterol Nebulized [Ventolin Nebulized] 3 ml INHALATION RT-Q6H PRN [History] RX: Meloxicam [Mobic] 7.5 mg PO BID 12/21/17 [History] RX: oxyCODONE-APAP 10-325MG [Percocet 10-325 mg] 1 tab PO Q4H PRN 12/21/17 [ History] Follow up Appointment(s)/Referral(s): Pearl Sosa MD [Primary Care Provider] - 1-2 days Discharge Disposition: DISCH TO [facility]
== END 2018-01-23 12:37 | disposition hospice, inpatient (51) | DRG 871 ==
LOC: EC 15:59 → 3SCARD 19:59 → 2SICU 22:53
PROVIDERS: ADMIT Internal Medicine; ATTEND Internal Medicine
DX: A41.9 Sepsis, unspecified organism (principal); J18.9 Pneumonia, unspecified organism; R57.1 Hypovolemic shock; C34.90 Malignant neoplasm of unspecified part of unspecified bronchus or lung; C78.01 Secondary malignant neoplasm of right lung; C78.7 Secondary malignant neoplasm of liver and intrahepatic bile duct; C79.31 Secondary malignant neoplasm of brain; C79.51 Secondary malignant neoplasm of bone; E87.2 Acidosis; J44.0 Chronic obstructive pulmonary disease with (acute) lower respiratory infection; N17.9 Acute kidney failure, unspecified; R18.8 Other ascites; R64 Cachexia; E44.1 Mild protein-calorie malnutrition; Z68.1 Body mass index [BMI] 19.9 or less, adult; E16.2 Hypoglycemia, unspecified; E86.0 Dehydration; E87.5 Hyperkalemia; F17.200 Nicotine dependence, unspecified, uncomplicated; G80.9 Cerebral palsy, unspecified; I10 Essential (primary) hypertension; K66.8 Other specified disorders of peritoneum; M19.90 Unspecified osteoarthritis, unspecified site; M79.7 Fibromyalgia; Z66 Do not resuscitate; Z79.899 Other long term (current) drug therapy; Z85.118 Personal history of other malignant neoplasm of bronchus and lung; Z86.73 Personal history of transient ischemic attack (TIA), and cerebral infarction without residual deficits; Z92.3 Personal history of irradiation; Z79.1 Long term (current) use of non-steroidal anti-inflammatories (NSAID); Z79.891 Long term (current) use of opiate analgesic; Z88.0 Allergy status to penicillin; Z91.041 Radiographic dye allergy status; D50.0 Iron deficiency anemia secondary to blood loss (chronic)
CPT/HCPCS: 36415; 51702; 70450; 71045; 71046; 74176; 80048; 80053; 81001; 82272; 82550; 82553; 83036; 83605; 83735; 84100; 84484; 85025; 85610; 85730; 86850; 86900; 86901; 87040; 87086; 87502; 93005; 96361; 96365; 96367; 96375; 99291

== ENCOUNTER 2018-01-23 12:31 | Inpatient (IN) | payer MEDICAID, OTHER ==
[2018-01-23] MEDS ORDERED: DIPHENOX-ATROP 2.5-0.025 MG 1 EACH TAB PO PRN (12:55)
[2018-01-23] MEDS ORDERED: LORazepam 2 MG/ML INJ IV PRN (12:55)
[2018-01-23] MEDS ORDERED: HALOPERIDOL 1 MG TAB PO PRN (12:55)
[2018-01-23] MEDS ORDERED: SODIUM CHLORIDE 0.9% 1,000 ML IV SCH (13:15)
[2018-01-23 13:18] VITALS: RESP 8; BMI 28.8
[2018-01-23] MEDS: ATROPINE OPHTH SOLN 1% 5ML BTL SUBLINGUAL PRN ×2 (13:54→18:10)
[2018-01-23] MEDS ORDERED: MORPHINE SULFATE (100 MG/2 ML) 100 MG in SODIUM CHLORIDE 0.9% 100 ML IV SCH (14:00)
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
[2018-01-23] MEDS ORDERED: ARTIFICIAL TEARS-HYPROMELLOSE DROPS 15 ML BTL BOTH EYES PRN (23:09)
[2018-01-24] MEDS: ATROPINE OPHTH SOLN 1% 5ML BTL SUBLINGUAL PRN (00:06)
--- NOTE | 2018-01-24 19:25 | P.DS ---
Providers Date of admission: 01/23/18 12:40 Attending physician: Iam Butler Primary care physician: Sheila Davis [facility] Course: Patient today please refer to nursing documentation for exact time of . Primary cause of lung cancer patient was admitted for hypovolemic shock and was subsequently made hospice. Plan - Discharge Summary New Discharge Prescriptions: No Action Folic Acid 1 mg PO DAILY Albuterol Inhaler [Ventolin Hfa Inhaler] 1 - 2 puff INHALATION RT-Q6H PRN PRN Reason: Shortness Of Breath Ondansetron HCl [Zofran] 4 mg PO Q4H PRN PRN Reason: Nausea Acetaminophen [Tylenol] 500 mg PO Q6HR PRN PRN Reason: Pain amLODIPine [Norvasc] 5 mg PO DAILY Polyethylene Glycol 3350 [Miralax] 17 gm PO DAILY PRN #30 powd.pack PRN Reason: Constipation Sennosides [Senna] 8.6 mg PO DAILY PRN #30 tablet PRN Reason: Constipation Meloxicam [Mobic] 7.5 mg PO BID Albuterol Nebulized [Ventolin Nebulized] 3 ml INHALATION RT-Q6H PRN PRN Reason: Shortness Of Breath oxyCODONE-APAP 10-325MG [Percocet 10-325 mg] 1 tab PO Q4H PRN PRN Reason: Pain Discharge Medication List Albuterol Inhaler [Ventolin Hfa Inhaler] 1 - 2 puff INHALATION RT-Q6H PRN [History] Folic Acid 1 mg PO DAILY 02/05/17 [History] Ondansetron HCl [Zofran] 4 mg PO Q4H PRN 02/05/17 [History] Acetaminophen [Tylenol] 500 mg PO Q6HR PRN 08/14/17 [History] amLODIPine [Norvasc] 5 mg PO DAILY 09/23/17 [History] Polyethylene Glycol 3350 [Miralax] 17 gm PO DAILY PRN #30 powd.pack 09/25/17 [Rx ] Sennosides [Senna] 8.6 mg PO DAILY PRN #30 tablet 09/25/17 [Rx] Albuterol Nebulized [Ventolin Nebulized] 3 ml INHALATION RT-Q6H PRN 12/21/17 [ History] Meloxicam [Mobic] 7.5 mg PO BID 12/21/17 [History] oxyCODONE-APAP 10-325MG [Percocet 10-325 mg] 1 tab PO Q4H PRN 12/21/17 [History] Discharge Disposition: - Preliminary Cause of Preliminary Cause of : Lung cancer
[2018-01-26] MEDS ORDERED: SCOPOLAMINE 1.5MG/72HR PATCH TRANSDERM SCH (12:00)
== END 2018-01-24 10:12 | disposition expired | DRG 951 ==
LOC: 2SICU 12:40
PROVIDERS: ADMIT Internal Medicine; ATTEND Internal Medicine
DX: Z51.5 Encounter for palliative care (principal); C79.31 Secondary malignant neoplasm of brain; C78.7 Secondary malignant neoplasm of liver and intrahepatic bile duct; C79.51 Secondary malignant neoplasm of bone; N17.9 Acute kidney failure, unspecified; C34.90 Malignant neoplasm of unspecified part of unspecified bronchus or lung; R57.1 Hypovolemic shock; J44.9 Chronic obstructive pulmonary disease, unspecified; Z66 Do not resuscitate; I10 Essential (primary) hypertension; M79.7 Fibromyalgia; M19.90 Unspecified osteoarthritis, unspecified site; F17.210 Nicotine dependence, cigarettes, uncomplicated; Z87.81 Personal history of (healed) traumatic fracture; Z84.89 Family history of other specified conditions; Z80.9 Family history of malignant neoplasm, unspecified; Z79.1 Long term (current) use of non-steroidal anti-inflammatories (NSAID); Z79.899 Other long term (current) drug therapy; Z88.0 Allergy status to penicillin; Z91.041 Radiographic dye allergy status